=== PATIENT | female | born 1935 ===

== ENCOUNTER → 2020-03-02 09:27 | Outpatient (BNVA) | payer MEDICARE, SELFPAY | PROVIDERS: PCP Family Medicine; Visit Provider Family Medicine | DX: Z86.718 Personal history of other venous thrombosis and embolism (principal); Z51.81 Encounter for therapeutic drug level monitoring; Z79.01 Long term (current) use of anticoagulants | CPT/HCPCS: 85610; 99211 ==

== ENCOUNTER 2020-03-17 13:06 | Inpatient (IN) | payer MEDICARE, SELFPAY ==
[2020-03-17 15:45] VITALS: BP 95/56; PULSE 66; RESP 16; TEMP 36.6; O2SAT 95; BMI 29.9
[2020-03-17 18:06] VITALS: BP 118/61; PULSE 60; RESP 18; TEMP 37
[2020-03-17] MEDS: 0.9 % Sodium Chloride 1,000 ML 999 ML IVCONT ×2 (18:40→20:43)
[2020-03-17] MEDS: Famotidine/PF 20 MG/2 ML VIAL IVPUSH (18:40)
[2020-03-17] MEDS: ondansetron HCL 4 MG/2 ML VIAL IVPUSH (18:40)
[2020-03-17 18:41] LABS: Basophils Percent Auto 0.1 % (0-2); Hematocrit 35.4 % (37-47); Hemoglobin 11.7 g/dl (12.0-16.0); Imm Gran Abs Auto 0.05 X10*3/uL (0.00-0.03); Imm Gran Pct Auto 0.6 % (0.0-0.4); Lymphocytes Absolute Auto 1.6 X10*3/uL (1.2-4.9); Lymphocytes Percent Auto 18.8 % (20-40); MANUAL DIFF FLAG NO; Mean Corpuscular HGB Conc 33.1 g/dl (31.0-35.0); Mean Corpuscular Hemoglobin 28.9 pg (27.0-33.0); Mean Corpuscular Volume 87.4 fL (80-98); Mean Platelet Volume 10.9 fL (9.4-12.3); Monocytes Absolute Auto 1.1 X10*3/uL (0.1-1.2); Monocytes Percent Auto 12.5 % (2-11); NRBC Pct Auto 0.3 /100WBC (0.0-0.2); Neutrophils Absolute Auto 5.8 X10*3/uL (2.0-8.3); Platelet Count 248 X10*3/uL (160-400); Red Blood Count 4.05 X10*6/uL (4.20-5.50); Red Cell Distribution Width 15.7 % (11.0-16.0); White Blood Count 8.6 X10*3/uL (4.8-10.8)
[2020-03-17 20:00] LABS: Lipase 42 U/L (8-78)
[2020-03-17 20:01] LABS: Alanine Aminotransferase 15 U/L (0-31); Albumin Level 3.6 g/dL (3.5-5.0); Alkaline Phosphatase 88 U/L (39-117); Anion Gap 16 (12-20); Aspartate Amino Transferase 39 U/L (5-31); Bilirubin Direct 0.3 mg/dL (0.0-0.5); Bilirubin Total 0.4 mg/dL (0.0-1.0); Blood Urea Nitrogen 43 mg/dL (9-16); Carbon Dioxide 24 mmol/L (22-29); Chloride 101 mmol/L (96-108); Creatinine Clr Calc Pharmacy 14.2; Estimated Glomerular Filt Rate 14; Glucose Random 96 mg/dL (60-115); Potassium 3.9 mmol/l (3.3-5.1); Sodium 137 mmol/L (135-145)
--- NOTE | 2020-03-17 20:27 | ED_ITS ---
HPI - Abdominal Pain General Chief Complaint: Nausea/Vomiting/Diarrhea Stated Complaint: retaining fluids Time Seen by Provider: 03/17/20 18:07 Source: patient Mode of arrival: ambulatory Limitations: no limitations History of Present Illness HPI narrative: Patient been nauseated for last few days and vomited once today poor oral intake for last few days also complaining of mild epigastric pain no abdominal distension diarrhea .patient been feeling very weak for last few days no fever no cough no chills no urinary complaints patient denies any contact with any COVID patient MD elicited complaint: abdominal pain Pertinent past history: none Onset (ago): day(s) (2) Related Data Home Medications Medication Instructions Recorded Confirmed acetaminophen 1 tab PO QAM 03/17/20 03/17/20 aspirin 1 tab PO QAM 03/17/20 03/17/20 calcitriol 1 cap PO 3XW 03/17/20 03/17/20 chlorthalidone 1 tab PO QAM 03/17/20 03/17/20 cyanocobalamin (vitamin B-12) 1 tab PO QAM 03/17/20 03/17/20 diclofenac sodium 2 g TOPICAL BID PRN 03/17/20 03/17/20 diphenoxylate-atropine 1 tab PO QID PRN 03/17/20 03/17/20 furosemide 1 tab PO Q OTHER DAY 03/17/20 03/17/20 lidocaine 1 applic TOPICAL BID 03/17/20 03/17/20 lisinopril 1 tab PO QAM 03/17/20 03/17/20 omeprazole 1 cap PO QAM 03/17/20 03/17/20 warfarin 15 mg PO SUMOTUWETHFR@1600 03/17/20 03/17/20 warfarin 20 mg PO SA@1600 03/17/20 03/17/20 Previous Rx's Medication Instructions Recorded warfarin 5 mg tablet See Rx Instructions .ROUTE 03/02/20 .COMPLEX #90 tab Allergies Allergy/AdvReac Type Severity Reaction Status Date / Time No Known Allergies Allergy Verified 03/02/20 09:24 Physical Exam Vital Signs: Vital Signs: Last Vital Signs Temp 98.6 F 03/17/20 18:06 Pulse 62 03/17/20 20:44 Resp 16 03/17/20 20:44 BP 129/68 03/17/20 20:44 Pulse Ox 94 11/05/20 20:44 Body Mass Index 29.9 Course Course Course Narrative: patient COVID-19 positive although no cough or shortness of breath came with poor oral intake and nausea vomiting chest x-ray showed bilateral infiltrate patient not hypoxic white counts are normal we will give your empirically Rocephin and Zithromax patient is not septic and the pneumonia is viral etiology MDM - Abdominal Pain Lab Data Result diagrams: 03/17/20 18:33 03/17/20 19:15 Labs: Lab Results 03/17/20 03/17/20 03/17/20 Range/Units 18:33 18:33 18:33 WBC 8.6 (4.8-10.8) X10*3/uL RBC 4.05 L (4.20-5.50) X10*6/uL Hgb 11.7 L (12.0-16.0) g/dl Hct 35.4 L (37-47) % MCV 87.4 (80-98) fL MCH 28.9 (27.0-33.0) pg MCHC 33.1 (31.0-35.0) g/dl RDW 15.7 (11.0-16.0) % Plt Count 248 (160-400) X10*3/uL MPV 10.9 (9.4-12.3) fL Immature Gran % (Auto) 0.6 H (0.0-0.4) % Neut % (Auto) 68.0 (45-73) % Lymph % (Auto) 18.8 L (20-40) % Payne % (Auto) 12.5 H (2-11) % Eos % (Auto) 0.0 (0-4) % Baso % (Auto) 0.1 (0-2) % Lymph # (Auto) 1.6 (1.2-4.9) X10*3/uL Payne # (Auto) 1.1 (0.1-1.2) X10*3/uL Eos # (Auto) 0.0 (0.0-0.4) X10*3/uL Baso # (Auto) 0.0 (0.0-0.2) X10*3/uL Abs Immat Gran (auto) 0.05 H (0.00-0.03) X10*3/uL Absolute Neuts (auto) 5.8 (2.0-8.3) X10*3/uL Absolute Nucleated RBC 0.030 H (0.0-0.012) X10*3/uL Nucleated RBC % (auto) 0.3 H (0.0-0.2) /100WBC Sodium Cancelled Potassium Cancelled Chloride Cancelled Carbon Dioxide Cancelled Anion Gap Cancelled BUN Cancelled Creatinine Cancelled Estim Creat Clear Calc Cancelled Estimated GFR Cancelled Random Glucose Cancelled Calcium Cancelled Total Bilirubin Cancelled Direct Bilirubin Cancelled AST Cancelled ALT Cancelled Alkaline Phosphatase Cancelled Total Protein Cancelled Albumin Cancelled Lipase Cancelled Coronavirus (PCR) (Negative) 03/17/20 03/17/20 03/17/20 Range/Units 19:15 19:15 22:14 WBC (4.8-10.8) X10*3/uL RBC (4.20-5.50) X10*6/uL Hgb (12.0-16.0) g/dl Hct (37-47) % MCV (80-98) fL MCH (27.0-33.0) pg MCHC (31.0-35.0) g/dl RDW (11.0-16.0) % Plt Count (160-400) X10*3/uL MPV (9.4-12.3) fL Immature Gran % (Auto) (0.0-0.4) % Neut % (Auto) (45-73) % Lymph % (Auto) (20-40) % Payne % (Auto) (2-11) % Eos % (Auto) (0-4) % Baso % (Auto) (0-2) % Lymph # (Auto) (1.2-4.9) X10*3/uL Payne # (Auto) (0.1-1.2) X10*3/uL Eos # (Auto) (0.0-0.4) X10*3/uL Baso # (Auto) (0.0-0.2) X10*3/uL Abs Immat Gran (auto) (0.00-0.03) X10*3/uL Absolute Neuts (auto) (2.0-8.3) X10*3/uL Absolute Nucleated RBC (0.0-0.012) X10*3/uL Nucleated RBC % (auto) (0.0-0.2) /100WBC Sodium 137 Potassium 3.9 Chloride 101 Carbon Dioxide 24 Anion Gap 16 BUN 43 H Creatinine 3.16 H Estim Creat Clear Calc 14.2 Estimated GFR 14 Random Glucose 96 Calcium 8.0 L Total Bilirubin 0.4 Direct Bilirubin 0.3 AST 39 H ALT 15 Alkaline Phosphatase 88 Total Protein 8.0 Albumin 3.6 Lipase 42 Coronavirus (PCR) POSITIVE A (Negative) Discharge Plan Discharge Clinical Impression: COVID-19 virus infection Renal failure (ARF), acute on chronic Qualifiers: Acute renal failure type: unspecified Chronic kidney disease stage: stage 4 (severe) Qualified Code(s): N17.9 - Acute kidney failure, unspecified Patient Disposition: Admitted As Inpatient COUNTS INCLUDE 234 BEDS AT THE [facility] Past Medical History Medical History (Updated 03/17/20 @ 23:57 by Freeman Abbott MD) Acid reflux Social History Social History Alcohol intake: never Smoking Status: Never smoker Use of substances other than those prescribed or required for medical reasons: No Advance Directives: No Advance Directives Information Provided: No
[2020-03-17 20:44] VITALS: BP 129/68; PULSE 62; RESP 16; O2SAT 94
--- NOTE | 2020-03-17 23:04 | PC.NURSE ---
hospitalist called by this rn, stating that he did not know pt was to be admitted, dr dorantes made aware and speaking with hospitalist. pt continues to rest. awaiting admission orders
[2020-03-17 23:37] LABS: SARS COV2 PCR INHOUSE POSITIVE (Negative)
--- NOTE | 2020-03-17 23:56 | XR_ITS ---
EXAMINATION: XR CHEST CLINICAL INFORMATION: Covid infection COMPARISON: 07/20/2011 TECHNIQUE: Frontal view of the chest was obtained. FINDINGS: Again noted is mild cardiomegaly. Multifocal infiltrates are present in both lungs, right greater than left. Findings are certainly consistent with Covid pneumonia. The aorta is calcified and unfolded. No pleural effusions are seen. Marked degenerative changes present in the spine and both shoulders. XR/XR chest 1V IMPRESSION: Multifocal infiltrates in both lungs, right greater than left.
[2020-03-18] VITALS (7 sets, daily range): BP systolic 142–174; BP diastolic 65–81; PULSE 63–70; RESP 18–20; TEMP 36.6–38.7; O2SAT 91–95; BMI 33.5
--- NOTE | 2020-03-18 01:13 | P.HPIM_ITS ---
History of Present Illness Date of Service: 03/18/20 Chief Complaint: nausea, vomiting 84 y/o female who presented from home c/o nasuea and vomiting x for the past week. Patient reports that started feeling malaise since saturday and now is presenting with poor appetite and has not been drinking plenty of fluids at home. On presentation to the ED patient was found to be hemodynamically stable, no leukocytosis, hgb of 11.7, electrolytes WNL, creatinine of 3.1(with baseline of 1.4), covid positive, CXR showing bilateral patchy opacities. Patient placed on isolation and decision for admission given. Patient seen and evaluated at the bedside, laying down in bed in no acute distress. ROS as above otherwise negative. Physical exam unremarkable. Denies any chest pain, SOB, diarrhea, constipation or fever. No sick contacts or any recent travel. 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, anemia, DVT, aortic regurgitation, H pylori gastritis, PAD PSx: cholecystectomy in 2002, cataract surgery, bilateral tubal ligation Toxic habits: No hx of alcohol abuse, smoking or iVDA Review of Systems Constitutional: Constitutional: Reports malaise Gastrointestinal: Gastrointestinal: Reports nausea and Reports vomiting PMFSH Medical History Acid reflux Functional capacity: independent ambulation Family history: reviewed and not pertinent Social History Alcohol intake: never Smoking Status: Never smoker Use of substances other than those prescribed or required for medical reasons: No Advance Directives: No Advance Directives Information Provided: No Meds Allergies Allergy/AdvReac Type Severity Reaction Status Date / Time No Known Allergies Allergy Verified 03/02/20 09:24 Home Medications Medication Instructions Recorded Confirmed Type acetaminophen 1 tab PO QAM 03/17/20 03/17/20 History aspirin 1 tab PO QAM 03/17/20 03/17/20 History calcitriol 1 cap PO 3XW 03/17/20 03/17/20 History chlorthalidone 1 tab PO QAM 03/17/20 03/17/20 History cyanocobalamin (vitamin B-12) 1 tab PO QAM 03/17/20 03/17/20 History diclofenac sodium 2 g TOPICAL BID PRN 03/17/20 03/17/20 History diphenoxylate-atropine 1 tab PO QID PRN 03/17/20 03/17/20 History furosemide 1 tab PO Q OTHER DAY 03/17/20 03/17/20 History lidocaine 1 applic TOPICAL BID 03/17/20 03/17/20 History lisinopril 1 tab PO QAM 03/17/20 03/17/20 History omeprazole 1 cap PO QAM 03/17/20 03/17/20 History warfarin 15 mg PO SUMOTUWETHFR@1600 03/17/20 03/17/20 History warfarin 20 mg PO SA@1600 03/17/20 03/17/20 History Physical Exam Vital Signs and Narrative: Vital Signs: Last Vital Signs Temp 98.6 F 03/17/20 18:06 Pulse 62 03/17/20 20:44 Resp 16 03/17/20 20:44 BP 129/68 03/17/20 20:44 Pulse Ox 94 03/17/20 20:44 Body Mass Index 29.9 Const: General: cooperative, comfortable and no acute distress Orientation/consciousness: oriented to person, oriented to place and oriented to time HENMT: Head: Yes normal to inspection Eyes: General: appearance normal, both eyes and all related structures Neck: Yes normal visual inspection Chest: Chest palpation & inspection: normal inspection of the chest Resp: Effort & Inspection: normal respiratory effort Cardio: Jugular venous distension: no JVD Rate: regular rate Rhythm: regular rhythm Heart sounds: S1 normal heart sound present and S2 normal heart sound present GI: Inspection: Yes normal to inspection Skin: General skin exam: no rashes or lesions noted Neuro: General: oriented to person, oriented to place and oriented to time Motor exam (neuro): 5/5 motor strength present throughout Results Labs Labs: Laboratory Tests 03/17/20 03/17/20 03/17/20 18:33 18:33 18:33 WBC 8.6 RBC 4.05 L Hgb 11.7 L Hct 35.4 L MCV 87.4 MCH 28.9 MCHC 33.1 RDW 15.7 Plt Count 248 MPV 10.9 Immature Gran % (Auto) 0.6 H Neut % (Auto) 68.0 Lymph % (Auto) 18.8 L [place] % (Auto) 12.5 H Eos % (Auto) 0.0 Baso % (Auto) 0.1 Lymph # (Auto) 1.6 S[place] # (Auto) 1.1 Eos # (Auto) 0.0 Baso # (Auto) 0.0 Abs Immat Gran (auto) 0.05 H Absolute Neuts (auto) 5.8 Absolute Nucleated RBC 0.030 H Nucleated RBC % (auto) 0.3 H Sodium Cancelled Potassium Cancelled Chloride Cancelled Carbon Dioxide Cancelled Anion Gap Cancelled BUN Cancelled Creatinine Cancelled Estim Creat Clear Calc Cancelled Estimated GFR Cancelled Random Glucose Cancelled Calcium Cancelled Total Bilirubin Cancelled Direct Bilirubin Cancelled AST Cancelled ALT Cancelled Alkaline Phosphatase Cancelled Total Protein Cancelled Albumin Cancelled Lipase Cancelled Coronavirus (PCR) 03/17/20 03/17/20 03/17/20 19:15 19:15 22:14 WBC RBC Hgb Hct MCV MCH MCHC RDW Plt Count MPV Immature Gran % (Auto) Neut % (Auto) Lymph % (Auto) Sully % (Auto) Eos % (Auto) Baso % (Auto) Lymph # (Auto) Sully # (Auto) Eos # (Auto) Baso # (Auto) Abs Immat Gran (auto) Absolute Neuts (auto) Absolute Nucleated RBC Nucleated RBC % (auto) Sodium 137 Potassium 3.9 Chloride 101 Carbon Dioxide 24 Anion Gap 16 BUN 43 H Creatinine 3.16 H Estim Creat Clear Calc 14.2 Estimated GFR 14 Random Glucose 96 Calcium 8.0 L Total Bilirubin 0.4 Direct Bilirubin 0.3 AST 39 H ALT 15 Alkaline Phosphatase 88 Total Protein 8.0 Albumin 3.6 Lipase 42 Coronavirus (PCR) POSITIVE A Imaging Radiologist's Impressions: Impressions Chest X-Ray 03/17/20 23:56 IMPRESSION: Multifocal infiltrates in both lungs, right greater than left. Assessment and Plan (1) COVID-19 virus infection: Status: Acute Placed on Isolation Does not requires any oxygen supplementation at present. Patient saturating well on room air (2) Renal failure (ARF), acute on chronic: Qualifiers: Acute renal failure type: unspecified Chronic kidney disease stage: stage 4 (severe) Qualified Code(s): N17.9 - Acute kidney failure, unspecified; N18.4 - Chronic kidney disease, stage 4 (severe) Status: Acute creatinine of 3.1 with baseline of 1.4 Continue with IV hydration monitor renal function closely and electrolytes nephrology consult in the am (3) DVT (deep venous thrombosis): Status: Acute continue with coumadin home dose monitor INR daily (4) Hypertension: Status: Acute Hold lisinopril given XANDER Continue with lasix home dose continue with chlorthalidone home dose continue with aspirin home dose (5) Acid reflux: Status: Acute continue with PPI home dose
[2020-03-18] MEDS: Aspirin Enteric Coated 81 MG TABLET.DR PO ×2 (01:54→08:45)
[2020-03-18] MEDS: cefTRIAXone sodium 1 GM in 0.9 % Sodium Chloride 50 ML IV (01:54)
[2020-03-18 01:57] LABS: Lactic Acid 0.8 mmol/L (0.5-2.0)
[2020-03-18] MEDS: 0.9 % Sodium Chloride 1,000 ML 100 ML IVCONT ×2 (03:02→14:06)
[2020-03-18] MEDS: Azithromycin 500 MG in 0.9 % Sodium Chloride 250 ML 125 MG IV (03:02)
[2020-03-18 03:12] LABS: INTERNATIONAL NORM RATIO 3.4 (0.9-1.1); Prothrombin Time 41.1 SEC (10.8-13.0)
[2020-03-18 03:14] LABS: Partial Thromboplastin Time 38.8 SEC (24.1-38.0)
[2020-03-18 04:05] LABS: Appearance Urine CLEAR; Color Urine YELLOW; Glucose Urine UA NEG (NEG); Leukocyte Esterase Urine 3+ (NEG); Nitrite Urine NEG (NEG); Urine Blood TRACE (NEG); Urine Ketones NEG (NEG); Urine Protein NEG (NEG-TRACE)
[2020-03-18] MEDS: Flu Vacc QS2020-21(6mos up)/PF 0.5 ML SYRINGE IM (04:59)
[2020-03-18] MEDS: Omeprazole 20 MG CAPSULE.DR PO (05:01)
[2020-03-18 05:22] LABS: Bacteria Urine TRACE /LPF; RBC Urine 0-2 /HPF (0); Squamous Epithelial Cell Urine 2+ /LPF
[2020-03-18 06:12] LABS: MANUAL DIFF FLAG NO
[2020-03-18 06:52] LABS: Anion Gap 15 (12-20); Blood Urea Nitrogen 38 mg/dL (9-16); Calcium 7.4 mg/dL (8.4-10.2); Carbon Dioxide 21 mmol/L (22-29); Chloride 107 mmol/L (96-108); Creatinine Clr Calc Pharmacy 20.2; Estimated Glomerular Filt Rate 20; Glucose Random 81 mg/dL (60-115); Potassium 3.8 mmol/l (3.3-5.1); Sodium 139 mmol/L (135-145)
[2020-03-18 06:54] LABS: Hematocrit 32.5 % (37-47); Hemoglobin 10.3 g/dl (12.0-16.0); Imm Gran Abs Auto 0.06 X10*3/uL (0.00-0.03); Imm Gran Pct Auto 0.8 % (0.0-0.4); Lymphocytes Absolute Auto 1.7 X10*3/uL (1.2-4.9); Lymphocytes Percent Auto 21.3 % (20-40); Mean Corpuscular HGB Conc 31.7 g/dl (31.0-35.0); Mean Corpuscular Hemoglobin 28.1 pg (27.0-33.0); Mean Corpuscular Volume 88.8 fL (80-98); Monocytes Absolute Auto 1.1 X10*3/uL (0.1-1.2); Monocytes Percent Auto 14.3 % (2-11); NRBC Pct Auto 0.3 /100WBC (0.0-0.2); Neutrophils Percent Auto 63.6 % (45-73); Platelet Count 231 X10*3/uL (160-400); Red Blood Count 3.66 X10*6/uL (4.20-5.50); Red Cell Distribution Width 15.8 % (11.0-16.0); White Blood Count 7.8 X10*3/uL (4.8-10.8)
[2020-03-18] MEDS: Furosemide 20 MG TABLET PO (08:45)
[2020-03-18] MEDS: 0.9 % Sodium Chloride Flush 3 ML SYRINGE IVFLUSH (08:45)
[2020-03-18] MEDS: hydroCHLOROthiazide 25 MG TABLET PO (08:45)
--- NOTE | 2020-03-18 10:07 | MHC.CM.PN ---
IMM 03/18/20 Female 84 lives with family. She requires assist and an ad for all functional mobility. DP home resume [facility] services including [employer]. Family will transport. CM will follow for change in dc service needs.
--- NOTE | 2020-03-18 11:14 | P.CONNP_ITS ---
History of Present Illness Reason for Consult Consult date: 03/18/20 Reason for consult: XANDER Chief Complaint Chief complaint: Nausea/Vomiting History of Present Illness Narrative: 84 y/o adm with GI symprtoms and XANDER from ques dehydration. Labs also noted COVID pos and xray c/w COVID lung injury. Overall doing ok this am and on RA breathing comfortably. No CP. No N/V. PMH signif for: HTN, DJD of the left knee s/p arthroplasty, anemia, DVT, aortic regurgitation, H pylori gastritis, PAD; CKD 3 bsl SCr 1.5 PMFSH Past Medical History Medical History (Updated 03/18/20 @ 04:21 by Irene Lee, RN) Acid reflux Anemia Aortic regurgitation DVT (deep venous thrombosis) Helicobacter pylori gastritis Hypertension PAD (peripheral artery disease) Functional capacity: independent ambulation Family History Family history: reviewed and not pertinent Surgical History Surgical History (Updated 03/18/20 @ 04:21 by Irene Lee, RN) History of bilateral knee replacement Social History Social History Household Members: None Housing: House Do you presently have visiting nurse or other home services: Yes ([employer]) Alcohol intake: never Smoking Status: Never smoker Use of substances other than those prescribed or required for medical reasons: No Currently Displaying Signs/Symptoms of Drug Intoxication Withdrawal: No Advance Directives: No Advance Directives Information Provided: No Do you have thoughts of harming others: None Do you have a plan to hurt others: No Plan Recently lost weight without trying: No service: No Current occupational status: disabled Meds Allergies Allergy/AdvReac Type Severity Reaction Status Date / Time No Known Allergies Allergy Verified 03/02/20 09:24 Home Medications Medication Instructions Recorded Confirmed Type acetaminophen 1 tab PO QAM 03/17/20 03/17/20 History aspirin 1 tab PO QAM 03/17/20 03/17/20 History calcitriol 1 cap PO 3XW 03/17/20 03/17/20 History chlorthalidone 1 tab PO QAM 03/17/20 03/17/20 History cyanocobalamin (vitamin B-12) 1 tab PO QAM 03/17/20 03/17/20 History diclofenac sodium 2 g TOPICAL BID PRN 03/17/20 03/17/20 History diphenoxylate-atropine 1 tab PO QID PRN 03/17/20 03/17/20 History furosemide 1 tab PO Q OTHER DAY 03/17/20 03/17/20 History lidocaine 1 applic TOPICAL BID 03/17/20 03/17/20 History lisinopril 1 tab PO QAM 03/17/20 03/17/20 History omeprazole 1 cap PO QAM 03/17/20 03/17/20 History warfarin 15 mg PO SUMOTUWETHFR@1600 03/17/20 03/17/20 History warfarin 20 mg PO SA@1600 03/17/20 03/17/20 History Physical Exam Vital Signs: Last Vital Signs Temp 98.5 F 03/18/20 08:04 Pulse 63 03/18/20 08:04 Resp 18 03/18/20 08:04 BP 142/65 H 03/18/20 08:04 Pulse Ox 91 L 03/18/20 08:04 Body Mass Index 33.5 Const General: cooperative, comfortable and no acute distress Orientation/consciousness: oriented to person, oriented to place and oriented to time HENMT Head: Yes normal to inspection Eyes General: appearance normal, both eyes and all related structures Neck Neck: Yes normal visual inspection Chest Chest palpation & inspection: normal inspection of the chest Resp Effort & Inspection: normal respiratory effort Cardio Jugular venous distension: no JVD Rate: regular rate Rhythm: regular rhythm Heart sounds: S1 normal heart sound present and S2 normal heart sound present GI Inspection: Yes normal to inspection Skin General skin exam: no rashes or lesions noted Neuro General: oriented to person, oriented to place and oriented to time Motor exam (neuro): 5/5 motor strength present throughout Results Lab Results Result Diagrams: 03/18/20 05:35 03/18/20 05:35 Lab results: Chemistry 03/17/20 03/17/20 03/18/20 18:33 19:15 05:35 Sodium Cancelled 137 139 Potassium Cancelled 3.9 3.8 Carbon Dioxide Cancelled 24 21 L BUN Cancelled 43 H 38 H Creatinine Cancelled 3.16 H 2.35 H Calcium Cancelled 8.0 L 7.4 L D Hematology 03/17/20 03/18/20 18:33 05:35 WBC 8.6 7.8 Hgb 11.7 L 10.3 L Plt Count 248 231 Urinalysis 03/18/20 03:42 Urine Color YELLOW Urine Appearance CLEAR Urine pH 5.0 Ur Specific [place] 1.020 Urine Protein NEG Urine Glucose (UA) NEG Urine Ketones NEG Urine Blood TRACE Urine Nitrite NEG Ur Leukocyte Esterase 3+ H Urine RBC 0-2 Urine WBC 76-150 H Ur Squamous Epith Cells 2+ Laboratory Tests 06/26/19 03/17/20 03/18/20 10:50 19:15 05:35 Creatinine 1.49 H 3.16 H 2.35 H Assessment and Plan (1) COVID-19 virus infection: Status: Acute (2) Renal failure (ARF), acute on chronic: Qualifiers: Acute renal failure type: unspecified Chronic kidney disease stage: stage 4 (severe) Qualified Code(s): N17.9 - Acute kidney failure, unspecified; N18.4 - Chronic kidney disease, stage 4 (severe) Status: Acute (3) DVT (deep venous thrombosis): Status: Acute (4) Hypertension: Status: Acute (5) Acid reflux: Status: Acute Placed on Isolation Does not requires any oxygen supplementation at present. Patient saturating well on room air creatinine of 3.1 with baseline of 1.4 Continue with IV hydration monitor renal function closely and electrolytes nephrology consult in the am continue with coumadin home dose monitor INR daily Hold lisinopril given XANDER Continue with lasix home dose continue with chlorthalidone home dose continue with aspirin home dose 1. Non-Oliguric XANDER: decr SCr off evie/diuretic and gentle IVF c/w pre- renal/dehydration playing a role despite the lack of high BUN/Cr ratio; at risk for WRF from COVID assoc cytokine ATN: UA abn with wbc raises ques of UTI vs AIN 2. CKD 3: bsl SCr 1.5; c/w HTN reanl dis 3. COVID with abnl CXR c/w COVID liung injury REC: cont to hold EVIE/diuretic; likely will need to start dexamethasone and ok to use remdesivir if needed; cont IVF cautiously while track Oxygenation; avoid NToxins; check urine studies ( I will order) Will follow with med team
--- NOTE | 2020-03-18 11:25 | HO.PM.IMPN ---
Subjective Subjective Date of Service: 03/18/20 Interval History: Seen in follow up for XANDER and covid. Patient feels well, oxygen level is better Review of Systems Gen: no fever Resp: no sob, no cough CV: no chest, no LOWE, no leg edema GI: No n/v, no abd pain Neuro: No confusion Physical Exam Vital Signs: Vital Signs: Last Vital Signs Temp 98.5 F 03/18/20 08:04 Pulse 63 03/18/20 08:04 Resp 18 03/18/20 08:04 BP 142/65 H 03/18/20 08:04 Pulse Ox 91 L 03/18/20 08:04 Body Mass Index 33.5 General: AO X 3, no acute distress Resp: CTA bilateral CVS: S1,S2,RRR GI: +BS, NT, no distention Skin: No rash Neuro: motor grossly intact Psych: appropriate affect Objective Data Current Medications Generic Name Dose Route Start Last Admin Trade Name Freq PRN Reason Stop Dose Admin Aspirin 81 mg 03/18/20 01:15 03/18/20 08:45 Aspirin Enteric Coated 81 Mg Tablet. PO 81 mg DAILY [facility] Administration Furosemide 20 mg 03/18/20 08:00 03/18/20 08:45 Furosemide 20 Mg Tablet PO 20 mg Q48H [facility] Administration Protocol Hydrochlorothiazide 25 mg 03/18/20 09:00 03/18/20 08:45 Hydrochlorothiazide 25 Mg Tablet PO 25 mg DAILY [facility] Administration Sodium Chloride 1,000 mls @ 100 mls/hr 03/18/20 01:42 03/18/20 03:02 Ns IVCONT 100 mls/hr .Q10H [facility] Administration Lisinopril 40 mg 03/18/20 09:00 Lisinopril 40 Mg Tablet PO DAILY [facility] Protocol Omeprazole 20 mg 03/18/20 06:30 03/18/20 05:01 Omeprazole 20 Mg Capsule. PO 20 mg DAILY@0630 [facility] Administration Sodium Chloride 3 ml 03/18/20 08:00 03/18/20 08:45 0.9 % Sodium Chloride Flush 3 Ml Syringe IVFLUSH 3 ml QSHIFT [facility] Administration Warfarin Sodium 20 mg 03/19/20 16:00 Warfarin Sodium 10 Mg Tablet PO SA@1600 [facility] Warfarin Sodium 15 mg 03/18/20 16:00 Warfarin Sodium 7.5 Mg Tablet PO SUMOTUWETHFR@1600 [facility] Labs CBC & Chem 7: 03/18/20 05:35 03/18/20 05:35 Assessment and Plan (1) Renal failure (ARF), acute on chronic: Status: Acute (2) DVT (deep venous thrombosis): Status: Acute (3) COVID-19 virus infection: Status: Acute (4) Hypertension: Status: Acute Assessment and Plan: 84/F with CKD3, HTN, h/o DVT presented with N/V and found to have XANDER and positive 1. XANDER on CKD--improving. continue IVF and follow labs Nephrology following 2. N/V--liekly related to covid, and resolved. Hydrate and advance diet as tamanna 3. h/o DVT--continue coumadin but hold today due to high INR today 4. Covid 19, doing ok, O2 sat is 91 on Room air. Will add Dexamethasone 6 daily HTN--hold Lisinopril and diuretics
[2020-03-18 11:30] LABS: INTERNATIONAL NORM RATIO 3.4 (0.9-1.1); Prothrombin Time 41.4 SEC (10.8-13.0)
[2020-03-18 13:35] LABS: Creatinine Urine 19.01 mg/dL; Total Protein Urine Random 9 mg/dL (<12)
[2020-03-18 14:32] LABS: EOS Counted 0 CELLS; EOS QC POS YES; EOS Stain Quality OK YES; WBC, Counted 100 CELLS
[2020-03-18] MEDS: Acetaminophen 325 MG TABLET 650 MG PO (20:28)
[2020-03-19] VITALS: BP 157/70; PULSE 70; RESP 18; TEMP 36.8; O2SAT 93
[2020-03-19] MEDS: 0.9 % Sodium Chloride Flush 3 ML SYRINGE IVFLUSH ×4 (00:22→23:16)
[2020-03-19] MEDS: 0.9 % Sodium Chloride 1,000 ML 100 ML IVCONT ×4 (03:08→23:11)
[2020-03-19 04:00] VITALS: BP 139/59; PULSE 75; RESP 18; TEMP 36.3; O2SAT 94
[2020-03-19] MEDS: Omeprazole 20 MG CAPSULE.DR PO (06:24)
--- NOTE | 2020-03-19 06:42 | PC.NURSE ---
Pt noted to have fever of 101.7 last noc at 715p. BP initially elevated at 174/81 but repeat manually was 158/72. Per Dr Guillaume, order for Tylenol given. Tylenol lowered fever to 99.3 oral at 2200. Will continue to monitor and safety measures in place.
[2020-03-19 07:07] VITALS: BP 146/63; PULSE 66; RESP 20; TEMP 36.1; O2SAT 94
[2020-03-19 07:27] LABS: INTERNATIONAL NORM RATIO 3.3 (0.9-1.1)
[2020-03-19] MEDS: Aspirin Enteric Coated 81 MG TABLET.DR PO (08:24)
[2020-03-19] MEDS: hydroCHLOROthiazide 25 MG TABLET PO (08:24)
[2020-03-19 11:11] VITALS: BP 160/90; PULSE 120; RESP 18; TEMP 36.6; O2SAT 90
--- NOTE | 2020-03-19 11:55 | HO.PM.IMPN ---
Subjective Subjective Date of Service: 03/19/20 Interval History: Seen in follow up for XANDER and covid. Patient feels well, oxygen level is better Review of Systems no fever no sob Physical Exam Vital Signs: Vital Signs: Last Vital Signs Temp 98 F 03/19/20 11:11 Pulse 120 H 03/19/20 11:11 Resp 18 03/19/20 11:11 BP 160/90 H 03/19/20 11:11 Pulse Ox 90 L 03/19/20 11:11 Body Mass Index 33.5 General: AO X 3, no acute distress Resp: CTA bilateral CVS: S1,S2,RRR GI: +BS, NT, no distention Skin: No rash Neuro: motor grossly intact Psych: appropriate affect Objective Data Current Medications Generic Name Dose Route Start Last Admin Trade Name Chetanq PRN Reason Stop Dose Admin Aspirin 81 mg 03/18/20 01:15 03/19/20 08:24 Aspirin Enteric Coated 81 Mg Tablet. PO 81 mg DAILY [facility] Administration Furosemide 20 mg 03/18/20 08:00 03/18/20 08:45 Furosemide 20 Mg Tablet PO 20 mg Q48H [facility] Administration Protocol Hydrochlorothiazide 25 mg 03/18/20 09:00 03/19/20 08:24 Hydrochlorothiazide 25 Mg Tablet PO 25 mg DAILY [facility] Administration Sodium Chloride 1,000 mls @ 100 mls/hr 03/18/20 01:42 03/19/20 08:25 Ns IVCONT 100 mls/hr .Q10H [facility] Administration Lisinopril 40 mg 03/18/20 09:00 Lisinopril 40 Mg Tablet PO DAILY [facility]S [facility]CLUDE 234 BEDS AT THE [facility] Protocol Omeprazole 20 mg 03/18/20 06:30 03/19/20 06:24 Omeprazole 20 Mg Capsule. PO 20 mg DAILY@0630 [facility]S INCLUDE 234 BEDS AT THE [facility] Administration Sodium Chloride 3 ml 03/18/20 08:00 03/19/20 08:25 0.9 % Sodium Chloride Flush 3 Ml Syringe IVFLUSH 3 ml QSHIFT COUNTS INCLUDE 234 BEDS AT THE [facility] Administration Warfarin Sodium 20 mg 03/19/20 16:00 Warfarin Sodium 10 Mg Tablet PO SA@1600 COUNTS INCLUDE 234 BEDS AT THE [facility] Warfarin Sodium 15 mg 03/18/20 16:00 Warfarin Sodium 7.5 Mg Tablet PO SUMOTUWETHFR@1600 COUNTS INCLUDE 234 BEDS AT THE [facility] Labs CBC & Chem 7: 03/20/20 06:36 03/20/20 06:36 Microbiology Microbiology Results: Microbiology 03/18/20 01:24 Blood - Venous Blood Culture - Preliminary No growth after 24 hours. 03/18/20 01:26 Blood - Venous Blood Culture - Preliminary No growth after 24 hours. Assessment and Plan (1) Renal failure (ARF), acute on chronic: Status: Acute (2) DVT (deep venous thrombosis): Status: Acute (3) COVID-19 virus infection: Status: Acute (4) Hypertension: Status: Acute Assessment and Plan: 84/F with CKD3, HTN, h/o DVT presented with N/V and found to have XANDER and positive 1. XANDER on CKD--improving. continue IVF and follow labs Nephrology following 2. N/V--liekly related to covid, and resolved. Hydrate and advance diet as tamanna 3. h/o DVT--continue coumadin, resume coumadin 4. Covid 19, doing ok, O2 sat is 91 on Room air. continue Dexamethasone 6 daily HTN--hold Lisinopril and diuretics
[2020-03-19 15:23] VITALS: BP 156/74; PULSE 73; RESP 18; TEMP 38; O2SAT 92
[2020-03-19] MEDS: Acetaminophen 325 MG TABLET 650 MG PO (17:34)
[2020-03-19 19:14] VITALS: BP 159/76; PULSE 78; RESP 18; TEMP 36.2; O2SAT 91
--- NOTE | 2020-03-19 20:33 | P.PNNP_ITS ---
Subjective Subjective Interval history: Seen and examined. Events noted Physical Exam Vital Signs: Vital Signs: Last Vital Signs Temp 97.2 F 03/19/20 19:14 Pulse 78 03/19/20 19:14 Resp 18 03/19/20 19:14 BP 159/76 H 03/19/20 19:14 Pulse Ox 91 L 03/19/20 19:14 Body Mass Index 33.5 Const: General: cooperative, comfortable and no acute distress Orientation/consciousness: oriented to person, oriented to place and oriented to time HENMT: Head: Yes normal to inspection Eyes: General: appearance normal, both eyes and all related structures Neck: Neck: Yes normal visual inspection Chest: Chest palpation & inspection: normal inspection of the chest Resp: Effort & Inspection: normal respiratory effort Cardio: Jugular venous distension: no JVD Rate: regular rate Rhythm: regular rhythm Heart sounds: S1 normal heart sound present and S2 normal heart sound present GI: Inspection: Yes normal to inspection Skin: General skin exam: no rashes or lesions noted Neuro: General: oriented to person, oriented to place and oriented to time Motor exam (neuro): 5/5 motor strength present throughout Assessment & Plan Assessment and plan (1) COVID-19 virus infection: Status: Acute (2) Renal failure (ARF), acute on chronic: Status: Acute (3) DVT (deep venous thrombosis): Status: Acute (4) Hypertension: Status: Acute (5) Acid reflux: Status: Acute Assessment and Plan: 1. Non-Oliguric XANDER: decr SCr off evie/diuretic and gentle IVF c/w pre- renal/dehydration playing a role despite the lack of high BUN/Cr ratio; at risk for WRF from COVID assoc cytokine ATN: UA abn with wbc raises ques of UTI vs AIN FENa >1% c/w ATN 2. CKD 3: bsl SCr 1.5; c/w HTN reanl dis 3. COVID with abnl CXR c/w COVID liung injury REC: repeat renal labs in am; cont to hold EVIE/diuretic; cont IVF cautiously while track Oxygenation; avoid NToxins Will follow with med team Time Spent With Patient Time: Total time spent is greater than 50% in coordination of care (as documented) at patient's floor/unit and/or counseling patient:
[2020-03-20] VITALS (7 sets, daily range): BP systolic 121–180; BP diastolic 70–81; PULSE 64–91; RESP 18–20; TEMP 36.5–37.8; O2SAT 92–95
[2020-03-20] MEDS: Omeprazole 20 MG CAPSULE.DR PO (06:08)
[2020-03-20 07:29] LABS: Hematocrit 35.2 % (37-47); Hemoglobin 11.5 g/dl (12.0-16.0); Mean Corpuscular HGB Conc 32.7 g/dl (31.0-35.0); Mean Corpuscular Hemoglobin 28.3 pg (27.0-33.0); Mean Corpuscular Volume 86.7 fL (80-98); Mean Platelet Volume 12.3 fL (9.4-12.3); NRBC Pct Auto 0.3 /100WBC (0.0-0.2); Platelet Count 314 X10*3/uL (160-400); Red Blood Count 4.06 X10*6/uL (4.20-5.50); Red Cell Distribution Width 15.4 % (11.0-16.0); White Blood Count 10.6 X10*3/uL (4.8-10.8)
[2020-03-20] MEDS: Furosemide 20 MG TABLET PO (07:58)
[2020-03-20] MEDS: 0.9 % Sodium Chloride Flush 3 ML SYRINGE IVFLUSH ×2 (07:58→14:01)
[2020-03-20] MEDS: hydroCHLOROthiazide 25 MG TABLET PO (07:58)
[2020-03-20] MEDS: Aspirin Enteric Coated 81 MG TABLET.DR PO (07:58)
[2020-03-20] MEDS: Acetaminophen 325 MG TABLET 650 MG PO (07:58)
[2020-03-20 07:59] LABS: Anion Gap 14 (12-20); Blood Urea Nitrogen 16 mg/dL (9-16); Carbon Dioxide 25 mmol/L (22-29); Chloride 102 mmol/L (96-108); Creatinine Clr Calc Pharmacy 32.8; Estimated Glomerular Filt Rate 34; Glucose Random 87 mg/dL (60-115); Potassium 3.5 mmol/l (3.3-5.1); Sodium 137 mmol/L (135-145)
[2020-03-20 12:26] LABS: INTERNATIONAL NORM RATIO 3.8 (0.9-1.1); Prothrombin Time 45.4 SEC (10.8-13.0)
--- NOTE | 2020-03-20 13:59 | HO.PM.IMPN ---
Subjective Subjective Interval History: Seen in follow up for XANDER and covid. She feels better, she feels better ROS: no sob, no fever Physical Exam Vital Signs: Vital Signs: Last Vital Signs Temp 97.7 F 03/20/20 11:55 Pulse 84 03/20/20 11:55 Resp 20 03/20/20 11:55 BP 121/70 03/20/20 11:55 Pulse Ox 95 03/20/20 11:55 Body Mass Index 33.5 General: AO X 3, no acute distress Resp: CTA bilateral CVS: S1,S2,RRR GI: +BS, NT, no distention Skin: No rash Neuro: motor grossly intact Psych: appropriate affect Objective Data Current Medications Generic Name Dose Route Start Last Admin Trade Name Freq PRN Reason Stop Dose Admin Acetaminophen 650 mg 03/19/20 15:47 03/20/20 07:58 Acetaminophen 325 Mg Tablet PO 650 mg Q6H PRN Administration Pain, Mild (Pain Scale 1-3) Aspirin 81 mg 03/18/20 01:15 03/20/20 07:58 Aspirin Enteric Coated 81 Mg Tablet. PO 81 mg DAILY [facility] Administration Furosemide 20 mg 03/18/20 08:00 03/20/20 07:58 Furosemide 20 Mg Tablet PO 20 mg Q48H [facility] Administration Protocol Hydrochlorothiazide 25 mg 03/18/20 09:00 03/20/20 07:58 Hydrochlorothiazide 25 Mg Tablet PO 25 mg DAILY [facility] Administration Sodium Chloride 1,000 mls @ 100 mls/hr 03/18/20 01:42 03/20/20 09:24 Ns IVCONT Infused .Q10H [facility] Infusion Lisinopril 40 mg 03/18/20 09:00 Lisinopril 40 Mg Tablet PO DAILY [facility] Protocol Omeprazole 20 mg 03/18/20 06:30 03/20/20 06:08 Omeprazole 20 Mg Capsule. PO 20 mg DAILY@0630 [facility] Administration Sodium Chloride 3 ml 03/18/20 08:00 03/20/20 07:58 0.9 % Sodium Chloride Flush 3 Ml Syringe IVFLUSH 3 ml QSHIFT [facility] Administration Warfarin Sodium 20 mg 03/19/20 16:00 Warfarin Sodium 10 Mg Tablet PO SA@1600 [facility] Warfarin Sodium 15 mg 03/18/20 16:00 Warfarin Sodium 7.5 Mg Tablet PO SUMOTUWETHFR@1600 [facility] Labs CBC & Chem 7: 03/21/20 05:43 03/22/20 09:42 Microbiology Microbiology Results: Microbiology 03/18/20 01:24 Blood - Venous Blood Culture - Preliminary No growth after 48 hours. 03/18/20 01:26 Blood - Venous Blood Culture - Preliminary No growth after 48 hours. 03/18/20 03:38 Urine clean catch - Clean Catch Midstream Urine Culture - Final Assessment and Plan (1) Renal failure (ARF), acute on chronic: Problem details: CKD3 Status: Acute (2) DVT (deep venous thrombosis): (3) COVID-19 virus infection: Status: Acute (4) Hypertension: Assessment and Plan: 84/F with CKD3, HTN, h/o DVT presented with N/V and found to have XANDER and positive 1. XANDER on CKD--improving. continue IVF and follow labs Nephrology following 2. N/V--liekly related to covid, and resolved. Hydrate and advance diet as tamanna 3. h/o DVT--continue coumadin, resume coumadin 4. Covid 19, doing ok, O2 sat is 91 on Room air. continue Dexamethasone 6 daily HTN--hold Lisinopril and diuretics
[2020-03-20] MEDS: 0.9 % Sodium Chloride 1,000 ML 100 ML IVCONT (14:00)
--- NOTE | 2020-03-20 17:45 | PM.PNNEP ---
Subjective Subjective Interval history: Seen and examined. Events noted Physical Exam Vital Signs: Vital Signs: Last Vital Signs Temp 98.7 F 03/20/20 15:20 Pulse 76 03/20/20 15:20 Resp 18 03/20/20 15:20 BP 134/77 03/20/20 15:20 Pulse Ox 92 03/20/20 15:20 Body Mass Index 33.5 Const: General: cooperative, comfortable and no acute distress Orientation/consciousness: oriented to person, oriented to place and oriented to time HENMT: Head: Yes normal to inspection Eyes: General: appearance normal, both eyes and all related structures Neck: Neck: Yes normal visual inspection Chest: Chest palpation & inspection: normal inspection of the chest Resp: Effort & Inspection: normal respiratory effort Cardio: Jugular venous distension: no JVD Rate: regular rate Rhythm: regular rhythm Heart sounds: S1 normal heart sound present and S2 normal heart sound present GI: Inspection: Yes normal to inspection Skin: General skin exam: no rashes or lesions noted Neuro: General: oriented to person, oriented to place and oriented to time Motor exam (neuro): 5/5 motor strength present throughout Assessment & Plan Assessment and plan (1) COVID-19 virus infection: Status: Acute (2) Renal failure (ARF), acute on chronic: Status: Acute (3) DVT (deep venous thrombosis): Status: Acute (4) Hypertension: Status: Acute (5) Acid reflux: Status: Acute Assessment and Plan: 1. Non-Oliguric XANDER: cont decr SCr off evie/diuretic FENa >1% c/w ATN 2. CKD 3: bsl SCr 1.5; c/w HTN reanl dis 3. COVID with abnl CXR c/w COVID liung injury REC: cont to hold EVIE/diuretic; avoid NToxins Will follow with med team Time Spent With Patient Time: Total time spent is greater than 50% in coordination of care (as documented) at patient's floor/unit and/or counseling patient:
[2020-03-21] MEDS: 0.9 % Sodium Chloride Flush 3 ML SYRINGE IVFLUSH ×3 (00:22→23:04)
[2020-03-21] MEDS: 0.9 % Sodium Chloride 1,000 ML 100 ML IVCONT (00:22)
[2020-03-21 03:48] VITALS: BP 158/72; PULSE 73; RESP 18; TEMP 36; O2SAT 92
[2020-03-21] MEDS: Omeprazole 20 MG CAPSULE.DR PO (06:04)
[2020-03-21 06:18] LABS: Hematocrit 33.4 % (37-47); Mean Corpuscular HGB Conc 32.9 g/dl (31.0-35.0); Mean Corpuscular Hemoglobin 28.5 pg (27.0-33.0); Mean Corpuscular Volume 86.5 fL (80-98); Mean Platelet Volume 12.1 fL (9.4-12.3); NRBC Pct Auto 0.2 /100WBC (0.0-0.2); Platelet Count 305 X10*3/uL (160-400); Red Blood Count 3.86 X10*6/uL (4.20-5.50); Red Cell Distribution Width 15.4 % (11.0-16.0); White Blood Count 9.1 X10*3/uL (4.8-10.8)
[2020-03-21 06:59] LABS: Anion Gap 12 (12-20); Blood Urea Nitrogen 16 mg/dL (9-16); Calcium 7.9 mg/dL (8.4-10.2); Carbon Dioxide 25 mmol/L (22-29); Chloride 104 mmol/L (96-108); Creatinine Clr Calc Pharmacy 33.2; Estimated Glomerular Filt Rate 35; Glucose Random 78 mg/dL (60-115); Potassium 3.2 mmol/l (3.3-5.1); Sodium 138 mmol/L (135-145)
[2020-03-21 07:43] VITALS: BP 149/84; PULSE 92; RESP 20; TEMP 36.2; O2SAT 93
[2020-03-21] MEDS: hydroCHLOROthiazide 25 MG TABLET PO (08:44)
[2020-03-21] MEDS: Aspirin Enteric Coated 81 MG TABLET.DR PO (08:44)
--- NOTE | 2020-03-21 11:15 | MHC.CM.PN ---
IMM 03/21/20 Female +COVID. PT eval ordered. Dispo pending input from P.T.. Family is asking for transportation to be provided. The whole Family has COVID. They are all in quarantine currently. Contact is Carmel Almendarez # in chart. Unruly Gramajo, listed as the 1st contact, is a nonworking #. CM will follow.
[2020-03-21 11:17] LABS: INTERNATIONAL NORM RATIO 3.6 (0.9-1.1); Prothrombin Time 43.2 SEC (10.8-13.0)
[2020-03-21 11:26] VITALS: BP 155/83; PULSE 62; RESP 18; TEMP 36.2; O2SAT 94
[2020-03-21] MEDS: Potassium Chloride ER 20 MEQ TAB.ER.PRT PO (11:54)
--- NOTE | 2020-03-21 15:08 | P.PNIM_ITS ---
Subjective Subjective Date of Service: 03/21/20 Interval History: Feels better. No fever or dyspnea. Cough improving. Myalgias improving. History taken in Vietnamese from patient. Physical Exam Vital Signs: Vital Signs: Last Vital Signs Temp 97.1 F 03/21/20 11:26 Pulse 62 03/21/20 11:26 Resp 18 03/21/20 11:26 BP 155/83 H 03/21/20 11:26 Pulse Ox 94 03/21/20 11:26 Body Mass Index 33.5 Const: General: no acute distress and alert Orientation/consciousness: patient oriented x3 Eyes: Sclerae: sclerae normal Chest: Chest palpation & inspection: normal inspection of the chest Resp: Effort & Inspection: normal respiratory effort and able to speak in complete sentences Cardio: Rate: regular rate Peripheral pulses: Peripheral pulses 2+ throughout GI: Palpation (GI): Soft to palpation and nontender Neuro: General: patient oriented x3 and no focal motor deficits Objective Data Current Medications Generic Name Dose Route Start Last Admin Trade Name Freq PRN Reason Stop Dose Admin Acetaminophen 650 mg 03/19/20 15:47 03/20/20 07:58 Acetaminophen 325 Mg Tablet PO 650 mg Q6H PRN Administration Pain, Mild (Pain Scale 1-3) Aspirin 81 mg 03/18/20 01:15 03/21/20 08:44 Aspirin Enteric Coated 81 Mg Tablet. PO 81 mg DAILY [facility] Administration Furosemide 20 mg 03/18/20 08:00 03/20/20 07:58 Furosemide 20 Mg Tablet PO 20 mg Q48H [facility] Administration Protocol Hydrochlorothiazide 25 mg 03/18/20 09:00 03/21/20 08:44 Hydrochlorothiazide 25 Mg Tablet PO 25 mg DAILY [facility] Administration Lisinopril 40 mg 03/18/20 09:00 Lisinopril 40 Mg Tablet PO DAILY [facility] Protocol Omeprazole 20 mg 03/18/20 06:30 03/21/20 06:04 Omeprazole 20 Mg Capsule. PO 20 mg DAILY@0630 [facility] Administration Sodium Chloride 3 ml 03/18/20 08:00 03/21/20 08:51 0.9 % Sodium Chloride Flush 3 Ml Syringe IVFLUSH Not Given QSHIFT [facility] Warfarin Sodium 20 mg 03/19/20 16:00 Warfarin Sodium 10 Mg Tablet PO SA@1600 [facility] Warfarin Sodium 15 mg 03/18/20 16:00 Warfarin Sodium 7.5 Mg Tablet PO SUMOTUWETHFR@1600 [facility] Labs CBC & Chem 7: 03/21/20 05:43 03/21/20 05:43 Labs: Laboratory Results - last 24 hr 03/21/20 03/21/20 03/21/20 05:43 05:43 10:47 WBC 9.1 RBC 3.86 L Hgb 11.0 L Hct 33.4 L MCV 86.5 MCH 28.5 MCHC 32.9 RDW 15.4 Plt Count 305 MPV 12.1 Absolute Nucleated RBC 0.020 H Nucleated RBC % (auto) 0.2 PT 43.2 H INR 3.6 H Sodium 138 Potassium 3.2 L Chloride 104 Carbon Dioxide 25 Anion Gap 12 BUN 16 Creatinine 1.43 H Estim Creat Clear Calc 33.2 Estimated GFR 35 Random Glucose 78 Calcium 7.9 L Microbiology Microbiology Results: Microbiology 03/18/20 01:24 Blood - Venous Blood Culture - Preliminary No growth after 48 hours. 03/18/20 01:26 Blood - Venous Blood Culture - Preliminary No growth after 48 hours. 03/18/20 03:38 Urine clean catch - Clean Catch Midstream Urine Culture - Final Assessment and Plan (1) Renal failure (ARF), acute on chronic: Status: Acute (2) DVT (deep venous thrombosis): Status: Acute (3) COVID-19 virus infection: Status: Acute (4) Hypertension: Status: Acute Assessment and Plan: hospital d#4 84yo F with CKD3, HTN, hx DVT anticoagulated on warfarin admitted for XANDER, COVID-19 pneumonia # COVID-19 - not hypoxic. did not get dexamethasone but at this point I do not think it is indicated. # XANDER/CKD3 - Cr improved, probably close to baseline # HTN - held TZ, restart lisinopril at low dose, monitor Cr # hypoK - replete, recheck # hx DVT - INR supratherapeutic, continue to hold warfarin, monitor INR # dispo - PT eval, possibly home with VNA tomorrow
--- NOTE | 2020-03-21 15:36 | MHC.CM.PN ---
Spoke with Carmel Almendarez 2nd contact and her [employer]. Notified Carmel maki DC today. Reported P.T.eval outcome. Pt does not qualify for STR. CM will follow.
[2020-03-21 15:44] VITALS: BP 142/70; PULSE 79; RESP 18; TEMP 37; O2SAT 92
[2020-03-21 19:35] VITALS: BP 166/72; PULSE 65; RESP 18; TEMP 37.1; O2SAT 94
[2020-03-21 23:37] VITALS: BP 157/79; PULSE 87; RESP 18; TEMP 36.3; O2SAT 91
[2020-03-22 03:55] VITALS: BP 139/70; PULSE 72; RESP 18; TEMP 35.9; O2SAT 92
[2020-03-22] MEDS: Omeprazole 20 MG CAPSULE.DR PO (06:24)
[2020-03-22 07:12] VITALS: BP 166/77; PULSE 72; RESP 18; TEMP 36.5; O2SAT 91
[2020-03-22] MEDS: hydroCHLOROthiazide 25 MG TABLET PO (07:16)
[2020-03-22 07:17] LABS: INTERNATIONAL NORM RATIO 2.9 (0.9-1.1); Prothrombin Time 34.8 SEC (10.8-13.0)
[2020-03-22] MEDS: Aspirin Enteric Coated 81 MG TABLET.DR PO (07:17)
[2020-03-22] MEDS: 0.9 % Sodium Chloride Flush 3 ML SYRINGE IVFLUSH (07:17)
[2020-03-22] MEDS: Furosemide 20 MG TABLET PO (07:17)
[2020-03-22 10:34] LABS: Anion Gap 15 (12-20); Blood Urea Nitrogen 21 mg/dL (9-16); Calcium 8.9 mg/dL (8.4-10.2); Carbon Dioxide 28 mmol/L (22-29); Chloride 102 mmol/L (96-108); Estimated Glomerular Filt Rate 30; Glucose Random 87 mg/dL (60-115); Potassium 4.2 mmol/l (3.3-5.1); Sodium 141 mmol/L (135-145)
[2020-03-22 11:29] VITALS: BP 153/80; PULSE 78; RESP 18; TEMP 36.3; O2SAT 93
--- NOTE | 2020-03-22 12:02 | MHC.CM.PN ---
IMM 03/21/20 PLAN IS DC TODAY. CALLED NIMISHA SULLIVAN. Notified DC today. She stated that her Son was providing transport to home. Prior to Hospitalization AC therapy was managed at Coumadin clinic. Care transitions @ [facility], Christiane Paige was contacted for DP. MINAYA requesting return call to arrange AC therapy management. Request made to NIMISHA Burt to have son Unruly call. His phone #on file is incorrect.
--- NOTE | 2020-03-22 13:33 | P.F2F_ITS ---
Service Date Service Date: 03/22/20 Encounter Date of encounter: 03/22/20 Reasons for Services Reason for senior care: medication management, medication treatment and teach disease management Reason for physical therapy: home safety and mobility, therapeutic exercises, gait/transfer training, assess need for DME, ADL training and energy conservation Homebound: Leaving the home is medically contraindicated at this time without the asist of a device and/or another person due th the listed conditions above and below. Reason homebound: unsteady gait / fall risk and immunosuppression / infection risk Homebound supporting statement: The patient was admitted to [facility] [place] 03/18-03/22/20 for COVID-19 pneumonia with acute kidney injury. Certification: Based on the above findings, I certify that this patient is confined to the home and needs intermittent senior care care, physical therapy and/or speech therapy, or continues to need occupational therapy. The patient is under my care, and I have initiated the establishment of the plan of care. The patient will be followed by a physician who will periodically review the plan of care.
--- NOTE | 2020-03-22 14:23 | PM.DS ---
DS: Providers Provider Date of admission: 03/18/20 01:13 Primary care physician: Anil Valenzuela MD Consults: 03/18/20 01:42 Consult to Nephrology Routine Consulting Provider: [facility] Reason for consultation: XANDER Has provider been notified: No DS: Diagnosis Discharge Diagnosis (1) Renal failure (ARF), acute on chronic: Status: Acute Problem details: CKD3 (2) DVT (deep venous thrombosis): Status: Acute (3) COVID-19 virus infection: Status: Acute (4) Hypertension: Status: Acute DS: Summary Hospital Course Hospital Course: From history and physical by admitting hospitalist Leatha Milligan, 03/17/20: 84 y/o female who presented from home c/o nasuea and vomiting x for the past week. Patient reports that started feeling malaise since saturday and now is presenting with poor appetite and has not been drinking plenty of fluids at home. On presentation to the ED patient was found to be hemodynamically stable, no leukocytosis, hgb of 11.7, electrolytes WNL, creatinine of 3.1(with baseline of 1.4), covid positive, CXR showing bilateral patchy opacities. Patient placed on isolation and decision for admission given. Patient seen and evaluated at the bedside, laying down in bed in no acute distress. ROS as above otherwise negative. Physical exam unremarkable. Denies any chest pain, SOB, diarrhea, constipation or fever. No sick contacts or any recent travel. 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 The patient was admitted to the isolation unit. She was not hypoxic and fasted not get dexamethasone, remdesivir, or convalescent plasma. FENa was >1%, consistent with ATN; this improved with holding her diuretics and EVIE-I. Lisinopril was resumed at a lower dose of 5 mg a day upon discharge and she should repeat basic metabolic panel in 1 week. Warfarin was held for supratherapeutic INR, and once less than 3, and was resumed with order to recheck INR 1 week. She was discharged home with [facility] services for INR monitoring and physical therapy. She should maintain isolation for 10 days from the onset of symptoms, which was approximately 03/11/2020; therefore she is essentially done with isolation. She should follow up with her primary care doctor in 1 week Time Spent with Patient Time attestation: Total time spent providing and/or coordinating discharge services: 40 Discharge coordination time: Greater than 30 minutes Physical Exam Vital Signs: Vital Signs: Last Vital Signs Temp 97.3 F 03/22/20 11:29 Pulse 78 03/22/20 11:29 Resp 18 03/22/20 11:29 BP 153/80 H 03/22/20 11:29 Pulse Ox 93 03/22/20 11:29 Body Mass Index 33.5 Const: General: no acute distress and alert Orientation/consciousness: patient oriented x3 Eyes: Sclerae: sclerae normal Chest: Chest palpation & inspection: normal inspection of the chest Resp: Effort & Inspection: normal respiratory effort and able to speak in complete sentences Cardio: Rate: regular rate Peripheral pulses: Peripheral pulses 2+ throughout GI: Palpation (GI): Soft to palpation and nontender Neuro: General: patient oriented x3 and no focal motor deficits DS: Data Data Completed and Pending Labs on day of discharge: Laboratory Tests 03/17/20 03/17/20 03/17/20 18:33 18:33 18:33 WBC 8.6 RBC 4.05 L Hgb 11.7 L Hct 35.4 L MCV 87.4 MCH 28.9 MCHC 33.1 RDW 15.7 Plt Count 248 MPV 10.9 Immature Gran % (Auto) 0.6 H Neut % (Auto) 68.0 Lymph % (Auto) 18.8 L [place] % (Auto) 12.5 H Eos % (Auto) 0.0 Baso % (Auto) 0.1 Lymph # (Auto) 1.6 [place] # (Auto) 1.1 Eos # (Auto) 0.0 Baso # (Auto) 0.0 Abs Immat Gran (auto) 0.05 H Absolute Neuts (auto) 5.8 Absolute Nucleated RBC 0.030 H Nucleated RBC % (auto) 0.3 H PT INR APTT Sodium Cancelled Potassium Cancelled Chloride Cancelled Carbon Dioxide Cancelled Anion Gap Cancelled BUN Cancelled Creatinine Cancelled Estim Creat Clear Calc Cancelled Estimated GFR Cancelled Random Glucose Cancelled Lactic Acid Calcium Cancelled Total Bilirubin Cancelled Direct Bilirubin Cancelled AST Cancelled ALT Cancelled Alkaline Phosphatase Cancelled Total Protein Cancelled Albumin Cancelled Lipase Cancelled Urine Color Urine Appearance Urine pH Ur Specific [place] Urine Protein Urine Glucose (UA) Urine Ketones Urine Blood Urine Nitrite Ur Leukocyte Esterase Urine RBC Urine WBC Ur WBC Total Counted Ur Squamous Epith Cells Urine Bacteria Urine Eosinophils Urine Eosinophils % U Random Total Protein Ur Random Sodium Urine Creatinine Coronavirus (PCR) 03/17/20 03/17/20 03/17/20 19:15 19:15 22:14 WBC RBC Hgb Hct MCV MCH MCHC RDW Plt Count MPV Immature Gran % (Auto) Neut % (Auto) Lymph % (Auto) [place] % (Auto) Eos % (Auto) Baso % (Auto) Lymph # (Auto) [place] # (Auto) Eos # (Auto) Baso # (Auto) Abs Immat Gran (auto) Absolute Neuts (auto) Absolute Nucleated RBC Nucleated RBC % (auto) PT INR APTT Sodium 137 Potassium 3.9 Chloride 101 Carbon Dioxide 24 Anion Gap 16 BUN 43 H Creatinine 3.16 H Estim Creat Clear Calc 14.2 Estimated GFR 14 Random Glucose 96 Lactic Acid Calcium 8.0 L Total Bilirubin 0.4 Direct Bilirubin 0.3 AST 39 H ALT 15 Alkaline Phosphatase 88 Total Protein 8.0 Albumin 3.6 Lipase 42 Urine Color Urine Appearance Urine pH Ur Specific [place] Urine Protein Urine Glucose (UA) Urine Ketones Urine Blood Urine Nitrite Ur Leukocyte Esterase Urine RBC Urine WBC Ur WBC Total Counted Ur Squamous Epith Cells Urine Bacteria Urine Eosinophils Urine Eosinophils % U Random Total Protein Ur Random Sodium Urine Creatinine Coronavirus (PCR) POSITIVE A 03/18/20 03/18/20 03/18/20 01:24 01:24 03:42 WBC RBC Hgb Hct MCV MCH MCHC RDW Plt Count MPV Immature Gran % (Auto) Neut % (Auto) Lymph % (Auto) [place] % (Auto) Eos % (Auto) Baso % (Auto) Lymph # (Auto) [place] # (Auto) Eos # (Auto) Baso # (Auto) Abs Immat Gran (auto) Absolute Neuts (auto) Absolute Nucleated RBC Nucleated RBC % (auto) PT 41.1 H INR 3.4 H APTT 38.8 H Sodium Potassium Chloride Carbon Dioxide Anion Gap BUN Creatinine Estim Creat Clear Calc Estimated GFR Random Glucose Lactic Acid 0.8 Calcium Total Bilirubin Direct Bilirubin AST ALT Alkaline Phosphatase Total Protein Albumin Lipase Urine Color YELLOW Urine Appearance CLEAR Urine pH 5.0 Ur Specific [place] 1.020 Urine Protein NEG Urine Glucose (UA) NEG Urine Ketones NEG Urine Blood TRACE Urine Nitrite NEG Ur Leukocyte Esterase 3+ H Urine RBC 0-2 Urine WBC 76-150 H Ur WBC Total Counted Ur Squamous Epith Cells 2+ Urine Bacteria TRACE Urine Eosinophils Urine Eosinophils % U Random Total Protein Ur Random Sodium Urine Creatinine Coronavirus (PCR) 03/18/20 03/18/20 03/18/20 05:35 05:35 10:46 WBC 7.8 RBC 3.66 L Hgb 10.3 L Hct 32.5 L MCV 88.8 MCH 28.1 MCHC 31.7 RDW 15.8 Plt Count 231 MPV 12.0 Immature Gran % (Auto) 0.8 H Neut % (Auto) 63.6 Lymph % (Auto) 21.3 [place] % (Auto) 14.3 H Eos % (Auto) 0.0 Baso % (Auto) 0.0 Lymph # (Auto) 1.7 [place] # (Auto) 1.1 Eos # (Auto) 0.0 Baso # (Auto) 0.0 Abs Immat Gran (auto) 0.06 H Absolute Neuts (auto) 5.0 Absolute Nucleated RBC 0.020 H Nucleated RBC % (auto) 0.3 H PT 41.4 H INR 3.4 H APTT Sodium 139 Potassium 3.8 Chloride 107 Carbon Dioxide 21 L Anion Gap 15 BUN 38 H Creatinine 2.35 H Estim Creat Clear Calc 20.2 Estimated GFR 20 Random Glucose 81 Lactic Acid Calcium 7.4 L D Total Bilirubin Direct Bilirubin AST ALT Alkaline Phosphatase Total Protein Albumin Lipase Urine Color Urine Appearance Urine pH Ur Specific [place] Urine Protein Urine Glucose (UA) Urine Ketones Urine Blood Urine Nitrite Ur Leukocyte Esterase Urine RBC Urine WBC Ur WBC Total Counted Ur Squamous Epith Cells Urine Bacteria Urine Eosinophils Urine Eosinophils % U Random Total Protein Ur Random Sodium Urine Creatinine Coronavirus (PCR) 03/18/20 03/18/20 03/19/20 13:00 13:00 06:22 WBC RBC Hgb Hct MCV MCH MCHC RDW Plt Count MPV Immature Gran % (Auto) Neut % (Auto) Lymph % (Auto) [place] % (Auto) Eos % (Auto) Baso % (Auto) Lymph # (Auto) [place] # (Auto) Eos # (Auto) Baso # (Auto) Abs Immat Gran (auto) Absolute Neuts (auto) Absolute Nucleated RBC Nucleated RBC % (auto) PT 40.0 H INR 3.3 H APTT Sodium Potassium Chloride Carbon Dioxide Anion Gap BUN Creatinine Estim Creat Clear Calc Estimated GFR Random Glucose Lactic Acid Calcium Total Bilirubin Direct Bilirubin AST ALT Alkaline Phosphatase Total Protein Albumin Lipase Urine Color Urine Appearance Urine pH Ur Specific [place] Urine Protein Urine Glucose (UA) Urine Ketones Urine Blood Urine Nitrite Ur Leukocyte Esterase Urine RBC Urine WBC Ur WBC Total Counted 100 Ur Squamous Epith Cells Urine Bacteria Urine Eosinophils 0 Urine Eosinophils % 0.0 U Random Total Protein 9 Ur Random Sodium 125.0 Urine Creatinine 19.01 Coronavirus (PCR) 03/20/20 03/20/20 03/20/20 06:36 06:36 12:05 WBC 10.6 RBC 4.06 L Hgb 11.5 L Hct 35.2 L MCV 86.7 MCH 28.3 MCHC 32.7 RDW 15.4 Plt Count 314 D MPV 12.3 Immature Gran % (Auto) Neut % (Auto) Lymph % (Auto) [place] % (Auto) Eos % (Auto) Baso % (Auto) Lymph # (Auto) [place] # (Auto) Eos # (Auto) Baso # (Auto) Abs Immat Gran (auto) Absolute Neuts (auto) Absolute Nucleated RBC 0.030 H Nucleated RBC % (auto) 0.3 H PT 45.4 H INR 3.8 H APTT Sodium 137 Potassium 3.5 Chloride 102 Carbon Dioxide 25 Anion Gap 14 BUN 16 D Creatinine 1.45 H Estim Creat Clear Calc 32.8 Estimated GFR 34 Random Glucose 87 Lactic Acid Calcium 8.0 L D Total Bilirubin Direct Bilirubin AST ALT Alkaline Phosphatase Total Protein Albumin Lipase Urine Color Urine Appearance Urine pH Ur Specific [place] Urine Protein Urine Glucose (UA) Urine Ketones Urine Blood Urine Nitrite Ur Leukocyte Esterase Urine RBC Urine WBC Ur WBC Total Counted Ur Squamous Epith Cells Urine Bacteria Urine Eosinophils Urine Eosinophils % U Random Total Protein Ur Random Sodium Urine Creatinine Coronavirus (PCR) 03/21/20 03/21/20 03/21/20 05:43 05:43 10:47 WBC 9.1 RBC 3.86 L Hgb 11.0 L Hct 33.4 L MCV 86.5 MCH 28.5 MCHC 32.9 RDW 15.4 Plt Count 305 MPV 12.1 Immature Gran % (Auto) Neut % (Auto) Lymph % (Auto) [place] % (Auto) Eos % (Auto) Baso % (Auto) Lymph # (Auto) [place] # (Auto) Eos # (Auto) Baso # (Auto) Abs Immat Gran (auto) Absolute Neuts (auto) Absolute Nucleated RBC 0.020 H Nucleated RBC % (auto) 0.2 PT 43.2 H INR 3.6 H APTT Sodium 138 Potassium 3.2 L Chloride 104 Carbon Dioxide 25 Anion Gap 12 BUN 16 Creatinine 1.43 H Estim Creat Clear Calc 33.2 Estimated GFR 35 Random Glucose 78 Lactic Acid Calcium 7.9 L Total Bilirubin Direct Bilirubin AST ALT Alkaline Phosphatase Total Protein Albumin Lipase Urine Color Urine Appearance Urine pH Ur Specific [place] Urine Protein Urine Glucose (UA) Urine Ketones Urine Blood Urine Nitrite Ur Leukocyte Esterase Urine RBC Urine WBC Ur WBC Total Counted Ur Squamous Epith Cells Urine Bacteria Urine Eosinophils Urine Eosinophils % U Random Total Protein Ur Random Sodium Urine Creatinine Coronavirus (PCR) 03/22/20 03/22/20 05:56 09:42 WBC RBC Hgb Hct MCV MCH MCHC RDW Plt Count MPV Immature Gran % (Auto) Neut % (Auto) Lymph % (Auto) [place] % (Auto) Eos % (Auto) Baso % (Auto) Lymph # (Auto) [place] # (Auto) Eos # (Auto) Baso # (Auto) Abs Immat Gran (auto) Absolute Neuts (auto) Absolute Nucleated RBC Nucleated RBC % (auto) PT 34.8 H INR 2.9 H APTT Sodium 141 Potassium 4.2 D Chloride 102 Carbon Dioxide 28 Anion Gap 15 BUN 21 H Creatinine 1.64 H Estim Creat Clear Calc 29.0 Estimated GFR 30 Random Glucose 87 Lactic Acid Calcium 8.9 D Total Bilirubin Direct Bilirubin AST ALT Alkaline Phosphatase Total Protein Albumin Lipase Urine Color Urine Appearance Urine pH Ur Specific [place] Urine Protein Urine Glucose (UA) Urine Ketones Urine Blood Urine Nitrite Ur Leukocyte Esterase Urine RBC Urine WBC Ur WBC Total Counted Ur Squamous Epith Cells Urine Bacteria Urine Eosinophils Urine Eosinophils % U Random Total Protein Ur Random Sodium Urine Creatinine Coronavirus (PCR) CXR 03/17/20: Multifocal infiltrates in both lungs, right greater than left. Discharge Plan Discharge Anticipated Discharge Date/Time: 03/22/20 13:35 Patient Disposition: Home Health Service Referrals: Anil Hubbard MD [Primary Care Provider] - Discharge Medications: New warfarin [Jantoven] 7.5 mg Tablet 15 mg PO DAILY@1600 Qty: 60 RF: 0 lisinopril 5 mg tablet 5 mg PO DAILY Qty: 30 RF: 0 Continued acetaminophen 325 mg tablet 1 tab PO QAM RF: 0 cyanocobalamin (vitamin B-12) 1,000 mcg tablet 1 tab PO QAM RF: 0 diphenoxylate-atropine 2.5-0.025 mg tablet 1 tab PO QID PRN (Reason: Loose Stool) RF: 0 aspirin 81 mg tablet,delayed release (DR/EC) 1 tab PO QAM RF: 0 omeprazole 20 mg capsule,delayed release(DR/EC) 1 cap PO QAM RF: 0 calcitriol 0.25 mcg capsule 1 cap PO 3XW RF: 0 diclofenac sodium 1 % gel 2 g topical BID PRN (Reason: Pain) RF: 0 lidocaine 5 % ointment 1 applic topical BID RF: 0 Discontinued chlorthalidone 25 mg tablet 1 tab PO QAM RF: 0 warfarin 5 mg Tablet 20 mg PO SA@1600 RF: 0 warfarin 5 mg Tablet 15 mg PO SUMOTUWETHFR@1600 RF: 0 furosemide 20 mg tablet 1 tab PO Q OTHER DAY RF: 0 lisinopril 40 mg tablet 1 tab PO QAM RF: 0 warfarin 5 mg tablet See Rx Instructions mg .ROUTE .COMPLEX Qty: 90 RF: 0 Discharge Orders: Discharge Order (Routine); Ordered 03/22/20 Ordered By: Kyle Stacy Diet: low salt diet Activity on Discharge: As tolerated Patient Instructions: Viral Pneumonia (DC), Acute Kidney Injury (DC) Stand Alone Forms: Community Support Other Ambulatory Orders: Basic Metabolic Panel (Routine) Timeframe: 1 Week Facility: [facility] - Location: Laboratory Ordered By: Kyle Stacy Prothrombin Time INR (Routine) Timeframe: 1 Week Facility: [facility] - Location: Laboratory Ordered By: Kyle Stacy Visit Report Forms: Patient Portal Discharge page Care Plan Goals: recovery from pneumonia improvement in renal function Health Concerns: COVID-19 pneumonia acute kidney injury Plan of Treatment: may discontinue isolation after 10 days from onset of symptoms, which was approximately 03/11/20 HOLD chlorthalidone and furosemide; DECREASE lisinopril from 40 mg daily to 5 mg daily continue warfarin at dose of 15 mg EVERY DAY; recheck INR in 1 week follow up with your primary care doctor in ONE WEEK
--- NOTE | 2020-03-22 14:52 | MHC.CM.PN ---
ADRI TODAY WITH [facility] FOR AC THERAPY MANAGEMENT. SON PROVIDING TRANSPORT
== END 2020-03-22 15:49 | disposition home health service (06) | DRG 178 ==
LOC: HO.ED 23:53 → HO.IMC 03-18 01:24
PROVIDERS: Internal Medicine; Internal Medicine Nephrology; Admitting Provider Internal Medicine; Emergency Provider Internal Medicine; PCP Internal Medicine; Visit Provider Family Medicine
DX: U07.1 COVID-19 (principal); N17.9 Acute kidney failure, unspecified; N18.4 Chronic kidney disease, stage 4 (severe); K21.9 Gastro-esophageal reflux disease without esophagitis; Z96.653 Presence of artificial knee joint, bilateral; Z23 Encounter for immunization; Z79.01 Long term (current) use of anticoagulants; Z79.82 Long term (current) use of aspirin; Z79.899 Other long term (current) drug therapy; I12.9 Hypertensive chronic kidney disease with stage 1 through stage 4 chronic kidney disease, or unspecified chronic kidney disease; Z86.718 Personal history of other venous thrombosis and embolism; E86.0 Dehydration
CPT/HCPCS: 36415; 71045; 80048; 80076; 81001; 81003; 83605; 83690; 84156; 84300; 85025; 85027; 85610; 85730; 87040; 87086; 89190; 90686; 96361; 96374; 96375; 97161; 99285; J0456; J0696; J2405; U0003

== ENCOUNTER → 2020-03-25 15:33 | Outpatient (BNVA) | payer MEDICARE, SELFPAY | PROVIDERS: PCP Family Medicine; Visit Provider Internal Medicine | DX: Z76.89 Persons encountering health services in other specified circumstances (principal) ==

== ENCOUNTER → 2020-03-29 11:52 | Outpatient (BNVA) | payer MEDICARE, SELFPAY | PROVIDERS: PCP Family Medicine; Visit Provider Internal Medicine | DX: Z86.718 Personal history of other venous thrombosis and embolism (principal); Z51.81 Encounter for therapeutic drug level monitoring; Z79.01 Long term (current) use of anticoagulants | CPT/HCPCS: Q3014 ==

== ENCOUNTER → 2020-04-05 14:53 | Outpatient (BNVA) | payer MEDICARE, SELFPAY | PROVIDERS: PCP Family Medicine; Visit Provider Internal Medicine | DX: Z86.718 Personal history of other venous thrombosis and embolism (principal); Z51.81 Encounter for therapeutic drug level monitoring; Z79.01 Long term (current) use of anticoagulants | CPT/HCPCS: Q3014 ==

== ENCOUNTER → 2020-04-12 11:18 | Outpatient (BNVA) | payer MEDICARE, SELFPAY | PROVIDERS: PCP Internal Medicine; Visit Provider Internal Medicine | DX: Z86.718 Personal history of other venous thrombosis and embolism (principal); Z79.01 Long term (current) use of anticoagulants; Z51.81 Encounter for therapeutic drug level monitoring | CPT/HCPCS: Q3014 ==

== ENCOUNTER → 2020-04-19 11:51 | Outpatient (BNVA) | payer MEDICARE, SELFPAY | PROVIDERS: PCP Family Medicine; Referring Provider Family Medicine; Visit Provider Internal Medicine | DX: Z13.89 Encounter for screening for other disorder (principal) | CPT/HCPCS: Q3014 ==

== ENCOUNTER → 2020-04-26 11:39 | Outpatient (BNVA) | payer MEDICARE, SELFPAY | PROVIDERS: PCP Family Medicine; Visit Provider Internal Medicine | DX: Z86.718 Personal history of other venous thrombosis and embolism (principal); Z51.81 Encounter for therapeutic drug level monitoring; Z79.01 Long term (current) use of anticoagulants | CPT/HCPCS: Q3014 ==

== ENCOUNTER → 2020-04-29 15:27 | Outpatient (BNVA) | payer MEDICARE, SELFPAY | PROVIDERS: PCP Family Medicine; Visit Provider Internal Medicine | DX: Z86.718 Personal history of other venous thrombosis and embolism (principal); Z51.81 Encounter for therapeutic drug level monitoring; Z79.01 Long term (current) use of anticoagulants | CPT/HCPCS: Q3014 ==

== ENCOUNTER → 2020-05-03 11:53 | Outpatient (BNVA) | payer MEDICARE, SELFPAY | PROVIDERS: PCP Family Medicine; Visit Provider Internal Medicine | DX: I82.402 Acute embolism and thrombosis of unspecified deep veins of left lower extremity (principal); Z79.01 Long term (current) use of anticoagulants; Z51.81 Encounter for therapeutic drug level monitoring | CPT/HCPCS: Q3014 ==

== ENCOUNTER → 2020-05-10 10:14 | Outpatient (BNVA) | payer MEDICARE, SELFPAY | PROVIDERS: PCP Family Medicine; Visit Provider Internal Medicine | DX: Z86.718 Personal history of other venous thrombosis and embolism (principal); Z51.81 Encounter for therapeutic drug level monitoring; Z79.01 Long term (current) use of anticoagulants | CPT/HCPCS: Q3014 ==

== ENCOUNTER → 2020-05-12 08:30 | Outpatient (BNVA) | payer MEDICARE, SELFPAY | PROVIDERS: PCP Family Medicine; Visit Provider Internal Medicine | DX: Z86.718 Personal history of other venous thrombosis and embolism (principal); Z51.81 Encounter for therapeutic drug level monitoring; Z79.01 Long term (current) use of anticoagulants | CPT/HCPCS: Q3014 ==

== ENCOUNTER → 2020-05-16 08:45 | Outpatient (BNVA) | payer MEDICARE, SELFPAY | PROVIDERS: PCP Family Medicine; Visit Provider Internal Medicine | DX: Z86.718 Personal history of other venous thrombosis and embolism (principal); Z51.81 Encounter for therapeutic drug level monitoring; Z79.01 Long term (current) use of anticoagulants | CPT/HCPCS: Q3014 ==

== ENCOUNTER → 2020-05-19 10:54 | Outpatient (BNVA) | payer MEDICARE, SELFPAY | PROVIDERS: PCP Family Medicine; Visit Provider Internal Medicine | DX: Z86.718 Personal history of other venous thrombosis and embolism (principal); Z51.81 Encounter for therapeutic drug level monitoring; Z79.01 Long term (current) use of anticoagulants | CPT/HCPCS: Q3014 ==

== ENCOUNTER 2020-05-27 09:16 | Outpatient (REF) | payer MEDICARE, SELFPAY ==
--- NOTE | 2020-05-27 09:49 | XR_ITS ---
EXAMINATION: LEFT ANKLE AND LEFT FOOT. CLINICAL INFORMATION: Pain left foot. COMPARISON: None TECHNIQUE: Left foot 3 views. Left ankle 2 views. FINDINGS: LEFT FOOT: There is no visible acute fracture, dislocation or subluxation seen. There is diffuse osteopenia no visible fracture or periosteal thickening. The soft tissues are normal. LEFT ANKLE: The ankle mortise and subtalar joints is preserved. There are subchondral cystic changes this fibula. There is a small retrocalcaneal and a moderate size calcaneal enthesophytes. No visible acute fracture or dislocation seen. There is bimalleolar and anterior ankle soft tissue swelling. XR/XR foot LT min 3V IMPRESSION: Diffuse osteopenia. No visible acute fracture or dislocation left foot or left ankle. There is bimalleolar soft tissue swelling and anterior ankle soft tissue swelling. There is a small retrocalcaneal and a moderate size calcaneal heel enthesophytes.
--- NOTE | 2020-05-27 09:50 | XR_ITS ---
EXAMINATION: LEFT ANKLE AND LEFT FOOT. CLINICAL INFORMATION: Pain left foot. COMPARISON: None TECHNIQUE: Left foot 3 views. Left ankle 2 views. FINDINGS: LEFT FOOT: There is no visible acute fracture, dislocation or subluxation seen. There is diffuse osteopenia no visible fracture or periosteal thickening. The soft tissues are normal. LEFT ANKLE: The ankle mortise and subtalar joints is preserved. There are subchondral cystic changes this fibula. There is a small retrocalcaneal and a moderate size calcaneal enthesophytes. No visible acute fracture or dislocation seen. There is bimalleolar and anterior ankle soft tissue swelling. XR/XR ankle LT min 3V IMPRESSION: Diffuse osteopenia. No visible acute fracture or dislocation left foot or left ankle. There is bimalleolar soft tissue swelling and anterior ankle soft tissue swelling. There is a small retrocalcaneal and a moderate size calcaneal heel enthesophytes.
[2020-05-27 11:27] LABS: MANUAL DIFF FLAG NO
[2020-05-27 11:43] LABS: Glucose Urine UA NEG (NEG); Leukocyte Esterase Urine NEG (NEG); Nitrite Urine NEG (NEG); PH 5.5 (5.0-8.0); Specific Gravity - Urine 1.025 (1.005-1.025); Urine Blood TRACE (NEG); Urine Ketones NEG (NEG); Urine Protein NEG (NEG-TRACE)
[2020-05-27 11:44] LABS: Appearance Urine CLEAR; Color Urine YELLOW
[2020-05-27 11:53] LABS: Basophils Percent Auto 0.2 % (0-2); Eosinophils Absolute Auto 0.1 X10*3/uL (0.0-0.4); Eosinophils Percent Auto 1.6 % (0-4); Hematocrit 30.7 % (37-47); Hemoglobin 9.8 g/dl (12.0-16.0); Imm Gran Abs Auto 0.03 X10*3/uL (0.00-0.03); Imm Gran Pct Auto 0.3 % (0.0-0.4); Lymphocytes Absolute Auto 2.1 X10*3/uL (1.2-4.9); Lymphocytes Percent Auto 23.9 % (20-40); Mean Corpuscular HGB Conc 31.9 g/dl (31.0-35.0); Mean Corpuscular Hemoglobin 28.7 pg (27.0-33.0); Mean Platelet Volume 12.6 fL (9.4-12.3); Monocytes Absolute Auto 0.7 X10*3/uL (0.1-1.2); Monocytes Percent Auto 8.2 % (2-11); Neutrophils Absolute Auto 5.7 X10*3/uL (2.0-8.3); Neutrophils Percent Auto 65.8 % (45-73); Platelet Count 246 X10*3/uL (160-400); Red Blood Count 3.41 X10*6/uL (4.20-5.50); Red Cell Distribution Width 19.6 % (11.0-16.0); White Blood Count 8.7 X10*3/uL (4.8-10.8)
[2020-05-27 12:15] LABS: Anion Gap 13 (12-20); Blood Urea Nitrogen 26 mg/dL (9-16); Calcium 8.8 mg/dL (8.4-10.2); Carbon Dioxide 26 mmol/L (22-29); Chloride 108 mmol/L (96-108); Estimated Glomerular Filt Rate 30; Glucose Random 86 mg/dL (60-115); Potassium 4.3 mmol/l (3.3-5.1); Sodium 143 mmol/L (135-145)
[2020-05-27 12:17] LABS: RBC Urine 0-2 /HPF (0); Squamous Epithelial Cell Urine 1+ /LPF; WBC Urine 0-2 /HPF (0-4)
[2020-05-27 12:31] LABS: Ferritin 150 ng/mL (10-250); Vitamin D 25-OH Total 41.2 ng/mL (>30)
[2020-05-27 12:43] LABS: Iron 56 mcg/dL (30-160); Percent Iron Saturation 18 % (15-50); Total Iron Binding Capacity 304 mcg/dL (228-428); Unsaturated Iron Binding 248 ug/dL
[2020-05-27 12:46] LABS: Creatinine Urine 85.46 mg/dL; Protein/Creatinine Ratio, Ur 0.09 (<0.2); Total Protein Urine Random 8 mg/dL (<12)
[2020-05-30 16:32] LABS: Calcium (PTHI) 9.1 mg/dL (8.6-10.4); PTHI 136 pg/mL (14-64)
== END 2020-05-27 09:17 | disposition home or self-care (01) ==
LOC: HO.LAB 09:16
PROVIDERS: Absent Provider Student in an Organized Health Care Education/Training Program; PCP Family Medicine; Visit Provider Internal Medicine Nephrology
DX: M25.572 Pain in left ankle and joints of left foot (principal); M79.672 Pain in left foot; M47.816 Spondylosis without myelopathy or radiculopathy, lumbar region; N18.32 Chronic kidney disease, stage 3b; D63.1 Anemia in chronic kidney disease
CPT/HCPCS: 36415; 73610; 73630; 80048; 81001; 82306; 82728; 83540; 83970; 84156; 85025; 85610; 99211

== ENCOUNTER → 2020-06-06 09:44 | Outpatient (BNVA) | payer MEDICARE, SELFPAY | PROVIDERS: PCP Family Medicine; Visit Provider Internal Medicine | DX: Z86.718 Personal history of other venous thrombosis and embolism (principal); Z79.01 Long term (current) use of anticoagulants; Z51.81 Encounter for therapeutic drug level monitoring | CPT/HCPCS: 85610; 99211 ==

== ENCOUNTER → 2020-06-13 09:05 | Outpatient (BNVA) | payer MEDICARE, SELFPAY | PROVIDERS: PCP Family Medicine; Visit Provider Internal Medicine | DX: Z86.718 Personal history of other venous thrombosis and embolism (principal); Z51.81 Encounter for therapeutic drug level monitoring; Z79.01 Long term (current) use of anticoagulants | CPT/HCPCS: 85610; 99211 ==

== ENCOUNTER → 2020-06-20 09:29 | Outpatient (BNVA) | payer MEDICARE, SELFPAY | PROVIDERS: PCP Family Medicine; Visit Provider Internal Medicine | DX: Z86.718 Personal history of other venous thrombosis and embolism (principal); Z51.81 Encounter for therapeutic drug level monitoring; Z79.01 Long term (current) use of anticoagulants | CPT/HCPCS: 85610; 99211 ==

== ENCOUNTER → 2020-06-30 09:36 | Outpatient (BNVA) | payer MEDICARE, SELFPAY | PROVIDERS: PCP Internal Medicine; Referring Provider Internal Medicine; Visit Provider Student in an Organized Health Care Education/Training Program | DX: M89.49 Other hypertrophic osteoarthropathy, multiple sites (principal) | CPT/HCPCS: 99212 ==

== ENCOUNTER → 2020-07-04 09:34 | Outpatient (BNVA) | payer MEDICARE, SELFPAY | PROVIDERS: PCP Family Medicine; Visit Provider Internal Medicine | DX: Z86.718 Personal history of other venous thrombosis and embolism (principal); Z51.81 Encounter for therapeutic drug level monitoring; Z79.01 Long term (current) use of anticoagulants | CPT/HCPCS: 85610; 99211 ==

== ENCOUNTER → 2020-07-14 09:25 | Outpatient (BNVA) | payer MEDICARE, SELFPAY | PROVIDERS: PCP Family Medicine; Visit Provider Internal Medicine | DX: Z86.718 Personal history of other venous thrombosis and embolism (principal); Z51.81 Encounter for therapeutic drug level monitoring; Z79.01 Long term (current) use of anticoagulants | CPT/HCPCS: 85610; 99211 ==

== ENCOUNTER → 2020-07-21 09:19 | Outpatient (BNVA) | payer MEDICARE, SELFPAY | PROVIDERS: PCP Family Medicine; Visit Provider Internal Medicine | DX: Z86.718 Personal history of other venous thrombosis and embolism (principal); Z51.81 Encounter for therapeutic drug level monitoring; Z79.01 Long term (current) use of anticoagulants | CPT/HCPCS: 85610; 99211 ==

== ENCOUNTER → 2020-07-29 09:23 | Outpatient (BNVA) | payer MEDICARE, SELFPAY | PROVIDERS: PCP Family Medicine; Visit Provider Internal Medicine | DX: Z86.718 Personal history of other venous thrombosis and embolism (principal); Z51.81 Encounter for therapeutic drug level monitoring; Z79.01 Long term (current) use of anticoagulants | CPT/HCPCS: 85610; 99211 ==

== ENCOUNTER → 2020-08-11 09:08 | Outpatient (BNVA) | payer MEDICARE, SELFPAY | PROVIDERS: PCP Family Medicine; Visit Provider Internal Medicine | DX: Z86.718 Personal history of other venous thrombosis and embolism (principal); Z51.81 Encounter for therapeutic drug level monitoring; Z79.01 Long term (current) use of anticoagulants | CPT/HCPCS: 85610; 99211 ==

== ENCOUNTER → 2020-08-25 09:16 | Outpatient (BNVA) | payer MEDICARE, SELFPAY | PROVIDERS: PCP Family Medicine; Visit Provider Internal Medicine | DX: Z86.718 Personal history of other venous thrombosis and embolism (principal); Z79.01 Long term (current) use of anticoagulants; Z51.81 Encounter for therapeutic drug level monitoring | CPT/HCPCS: 85610; 99211 ==

== ENCOUNTER → 2020-09-15 09:10 | Outpatient (BNVA) | payer MEDICARE, SELFPAY | PROVIDERS: PCP Family Medicine; Visit Provider Internal Medicine | DX: Z86.718 Personal history of other venous thrombosis and embolism (principal); Z79.01 Long term (current) use of anticoagulants; Z51.81 Encounter for therapeutic drug level monitoring | CPT/HCPCS: 85610; 99211 ==

== ENCOUNTER → 2020-09-29 09:47 | Outpatient (BNVA) | payer MEDICARE, SELFPAY | PROVIDERS: PCP Family Medicine; Visit Provider Internal Medicine | DX: Z86.718 Personal history of other venous thrombosis and embolism (principal); Z51.81 Encounter for therapeutic drug level monitoring; Z79.01 Long term (current) use of anticoagulants | CPT/HCPCS: 85610; 99211 ==

== ENCOUNTER → 2020-10-27 09:34 | Outpatient (BNVA) | payer MEDICARE, SELFPAY | PROVIDERS: PCP Family Medicine; Visit Provider Internal Medicine | DX: Z86.718 Personal history of other venous thrombosis and embolism (principal); Z51.81 Encounter for therapeutic drug level monitoring; Z79.01 Long term (current) use of anticoagulants | CPT/HCPCS: 85610; 99211 ==

== ENCOUNTER → 2020-11-03 09:13 | Outpatient (BNVA) | payer MEDICARE, SELFPAY | PROVIDERS: PCP Family Medicine; Visit Provider Internal Medicine | DX: Z86.718 Personal history of other venous thrombosis and embolism (principal); Z51.81 Encounter for therapeutic drug level monitoring; Z79.01 Long term (current) use of anticoagulants | CPT/HCPCS: 85610; 99211 ==

== ENCOUNTER → 2020-11-17 09:20 | Outpatient (BNVA) | payer MEDICARE, SELFPAY | PROVIDERS: PCP Family Medicine; Visit Provider Internal Medicine | DX: Z86.718 Personal history of other venous thrombosis and embolism (principal); Z51.81 Encounter for therapeutic drug level monitoring; Z79.01 Long term (current) use of anticoagulants | CPT/HCPCS: 85610; 99211 ==

== ENCOUNTER → 2020-11-21 09:30 | Outpatient (BNVA) | payer MEDICARE, SELFPAY | PROVIDERS: PCP Family Medicine; Visit Provider Internal Medicine | DX: Z86.718 Personal history of other venous thrombosis and embolism (principal); Z51.81 Encounter for therapeutic drug level monitoring; Z79.01 Long term (current) use of anticoagulants | CPT/HCPCS: 85610; 99211 ==

== ENCOUNTER → 2020-11-29 09:39 | Outpatient (BNVA) | payer MEDICARE, SELFPAY | PROVIDERS: PCP Family Medicine; Visit Provider Internal Medicine | DX: Z86.718 Personal history of other venous thrombosis and embolism (principal); Z51.81 Encounter for therapeutic drug level monitoring; Z79.01 Long term (current) use of anticoagulants | CPT/HCPCS: 85610; 99211 ==

== ENCOUNTER → 2020-12-13 09:31 | Outpatient (BNVA) | payer MEDICARE, SELFPAY | PROVIDERS: PCP Family Medicine; Visit Provider Internal Medicine | DX: Z86.718 Personal history of other venous thrombosis and embolism (principal); Z51.81 Encounter for therapeutic drug level monitoring; Z79.01 Long term (current) use of anticoagulants | CPT/HCPCS: 85610; 99211 ==

== ENCOUNTER → 2020-12-16 09:43 | Outpatient (BNVA) | payer MEDICARE, SELFPAY | PROVIDERS: PCP Family Medicine; Visit Provider Internal Medicine | DX: Z86.718 Personal history of other venous thrombosis and embolism (principal); Z51.81 Encounter for therapeutic drug level monitoring; Z79.01 Long term (current) use of anticoagulants | CPT/HCPCS: 85610; 99211 ==

== ENCOUNTER → 2020-12-23 09:15 | Outpatient (BNVA) | payer MEDICARE, SELFPAY | PROVIDERS: PCP Family Medicine; Visit Provider Internal Medicine | DX: Z86.718 Personal history of other venous thrombosis and embolism (principal); Z51.81 Encounter for therapeutic drug level monitoring; Z79.01 Long term (current) use of anticoagulants | CPT/HCPCS: 85610; 99211 ==

== ENCOUNTER → 2021-01-05 09:14 | Outpatient (BNVA) | payer MEDICARE, SELFPAY | PROVIDERS: PCP Family Medicine; Visit Provider Internal Medicine | DX: Z86.718 Personal history of other venous thrombosis and embolism (principal); Z51.81 Encounter for therapeutic drug level monitoring; Z79.01 Long term (current) use of anticoagulants | CPT/HCPCS: 85610; 99211 ==

== ENCOUNTER → 2021-01-13 09:45 | Outpatient (BNVA) | payer MEDICARE, SELFPAY | PROVIDERS: PCP Family Medicine; Visit Provider Internal Medicine | DX: Z86.718 Personal history of other venous thrombosis and embolism (principal); Z51.81 Encounter for therapeutic drug level monitoring; Z79.01 Long term (current) use of anticoagulants | CPT/HCPCS: 85610 ==

== ENCOUNTER 2021-01-19 10:02 | Outpatient (REF) | payer MEDICARE, SELFPAY ==
--- NOTE | ~2021-01-19 | XR_ITS ---
EXAMINATION: XR KNEE, LEFT CLINICAL INFORMATION: Left knee pain. COMPARISON: Left knee radiographs dated 07/20/2019. TECHNIQUE: Four views of the left knee. FINDINGS: Hinged total left knee arthroplasty. No hardware or osseous fracture. No perihardware lucency to suggest loosening or infection. Small joint effusion. Atherosclerotic calcifications. XR/XR knee LT 4V IMPRESSION: Total left knee arthroplasty without evidence of hardware complication. Small joint effusion.
== END 2021-01-19 10:03 | disposition home or self-care (01) ==
LOC: HO.XRAY 10:02
PROVIDERS: PCP Family Medicine; Visit Provider Family Medicine
DX: M25.562 Pain in left knee (principal); Z96.653 Presence of artificial knee joint, bilateral
CPT/HCPCS: 73564

== ENCOUNTER → 2021-01-27 09:06 | Outpatient (BNVA) | payer MEDICARE, SELFPAY | PROVIDERS: PCP Family Medicine; Visit Provider Internal Medicine | DX: Z86.718 Personal history of other venous thrombosis and embolism (principal); Z51.81 Encounter for therapeutic drug level monitoring; Z79.01 Long term (current) use of anticoagulants | CPT/HCPCS: 85610; 99211 ==

== ENCOUNTER 2021-02-10 09:20 | Outpatient (REF) | payer MEDICARE, SELFPAY ==
[2021-02-10 10:25] LABS: Alanine Aminotransferase 10 U/L (0-31); Albumin Level 3.9 g/dL (3.5-5.0); Alkaline Phosphatase 108 U/L (39-117); Anion Gap 12 (12-20); Aspartate Amino Transferase 18 U/L (5-31); Bilirubin Total 0.6 mg/dL (0.0-1.0); Blood Urea Nitrogen 26 mg/dL (9-16); Calcium 9.6 mg/dL (8.4-10.2); Carbon Dioxide 28 mmol/L (22-29); Chloride 105 mmol/L (96-108); Estimated Glomerular Filt Rate 30; Glucose Random 93 mg/dL (60-115); Potassium 3.9 mmol/L (3.3-5.1); Sodium 141 mmol/L (135-145); Total Protein 8.1 g/dL (6.5-8.0)
== END 2021-02-10 09:21 | disposition home or self-care (01) ==
LOC: HO.LAB 09:20
PROVIDERS: Student in an Organized Health Care Education/Training Program; PCP Family Medicine; Visit Provider Nurse Practitioner Family
DX: M89.49 Other hypertrophic osteoarthropathy, multiple sites (principal); Z86.718 Personal history of other venous thrombosis and embolism; Z51.81 Encounter for therapeutic drug level monitoring; Z79.01 Long term (current) use of anticoagulants
CPT/HCPCS: 36415; 80053; 85610; 99211

== ENCOUNTER → 2021-02-23 09:26 | Outpatient (BNVA) | payer MEDICARE, SELFPAY | PROVIDERS: PCP Family Medicine; Visit Provider Internal Medicine | DX: Z86.718 Personal history of other venous thrombosis and embolism (principal); Z51.81 Encounter for therapeutic drug level monitoring; Z79.01 Long term (current) use of anticoagulants | CPT/HCPCS: 85610; 99211 ==

== ENCOUNTER → 2021-03-09 09:43 | Outpatient (BNVA) | payer MEDICARE, SELFPAY | PROVIDERS: PCP Family Medicine; Visit Provider Internal Medicine | DX: Z86.718 Personal history of other venous thrombosis and embolism (principal); Z51.81 Encounter for therapeutic drug level monitoring; Z79.01 Long term (current) use of anticoagulants | CPT/HCPCS: 85610; 99211 ==

== ENCOUNTER → 2021-03-23 09:22 | Outpatient (BNVA) | payer MEDICARE, SELFPAY | PROVIDERS: PCP Family Medicine; Visit Provider Internal Medicine | DX: Z86.718 Personal history of other venous thrombosis and embolism (principal); Z79.01 Long term (current) use of anticoagulants; Z51.81 Encounter for therapeutic drug level monitoring | CPT/HCPCS: 85610; 99211 ==

== ENCOUNTER → 2021-03-29 09:07 | Outpatient (BNVA) | payer MEDICARE, SELFPAY | PROVIDERS: PCP Family Medicine; Visit Provider Internal Medicine | DX: Z86.718 Personal history of other venous thrombosis and embolism (principal); Z51.81 Encounter for therapeutic drug level monitoring; Z79.01 Long term (current) use of anticoagulants | CPT/HCPCS: 85610; 99211 ==

== ENCOUNTER → 2021-04-03 10:39 | Outpatient (BNVA) | payer MEDICARE, SELFPAY | PROVIDERS: PCP Family Medicine; Visit Provider Internal Medicine | DX: Z86.718 Personal history of other venous thrombosis and embolism (principal); Z51.81 Encounter for therapeutic drug level monitoring; Z79.01 Long term (current) use of anticoagulants | CPT/HCPCS: 85610; 99211 ==

== ENCOUNTER → 2021-04-13 10:22 | Outpatient (BNVA) | payer MEDICARE, SELFPAY | PROVIDERS: PCP Family Medicine; Visit Provider Internal Medicine | DX: Z86.718 Personal history of other venous thrombosis and embolism (principal); Z51.81 Encounter for therapeutic drug level monitoring; Z79.01 Long term (current) use of anticoagulants | CPT/HCPCS: 85610; 99211 ==

== ENCOUNTER → 2021-04-27 09:22 | Outpatient (BNVA) | payer MEDICARE, SELFPAY | PROVIDERS: PCP Family Medicine; Visit Provider Internal Medicine | DX: Z86.718 Personal history of other venous thrombosis and embolism (principal); Z51.81 Encounter for therapeutic drug level monitoring; Z79.01 Long term (current) use of anticoagulants | CPT/HCPCS: 85610; 99211 ==

== ENCOUNTER → 2021-05-11 12:54 | Outpatient (BNVA) | payer MEDICARE, SELFPAY | PROVIDERS: PCP Family Medicine; Visit Provider Internal Medicine | DX: Z86.718 Personal history of other venous thrombosis and embolism (principal); Z51.81 Encounter for therapeutic drug level monitoring; Z79.01 Long term (current) use of anticoagulants | CPT/HCPCS: 85610; 99211 ==

== ENCOUNTER → 2021-05-23 08:41 | Outpatient (BNVA) | payer MEDICARE, SELFPAY | PROVIDERS: PCP Family Medicine; Visit Provider Internal Medicine | DX: Z86.718 Personal history of other venous thrombosis and embolism (principal); Z51.81 Encounter for therapeutic drug level monitoring; Z79.01 Long term (current) use of anticoagulants | CPT/HCPCS: 85610; 99211 ==

== ENCOUNTER → 2021-06-06 09:01 | Outpatient (BNVA) | payer MEDICARE, SELFPAY | PROVIDERS: PCP Family Medicine; Visit Provider Internal Medicine | DX: Z86.718 Personal history of other venous thrombosis and embolism (principal); Z51.81 Encounter for therapeutic drug level monitoring; Z79.01 Long term (current) use of anticoagulants | CPT/HCPCS: 85610; 99211 ==

== ENCOUNTER → 2021-06-22 09:13 | Outpatient (BNVA) | payer MEDICARE, SELFPAY | PROVIDERS: PCP Family Medicine; Visit Provider Internal Medicine | DX: Z86.718 Personal history of other venous thrombosis and embolism (principal); Z51.81 Encounter for therapeutic drug level monitoring; Z79.01 Long term (current) use of anticoagulants | CPT/HCPCS: 85610; 99211 ==

== ENCOUNTER → 2021-07-13 09:57 | Outpatient (BNVA) | payer MEDICARE, SELFPAY | PROVIDERS: PCP Family Medicine; Visit Provider Internal Medicine | DX: Z86.718 Personal history of other venous thrombosis and embolism (principal); Z51.81 Encounter for therapeutic drug level monitoring; Z79.01 Long term (current) use of anticoagulants | CPT/HCPCS: 85610; 99211 ==

== ENCOUNTER → 2021-08-01 08:55 | Outpatient (BNVA) | payer MEDICARE, SELFPAY | PROVIDERS: PCP Family Medicine; Visit Provider Internal Medicine | DX: Z86.718 Personal history of other venous thrombosis and embolism (principal); Z51.81 Encounter for therapeutic drug level monitoring; Z79.01 Long term (current) use of anticoagulants | CPT/HCPCS: 85610; 99211 ==

== ENCOUNTER → 2021-08-03 11:15 | Outpatient (BNVA) | payer MEDICARE, SELFPAY | PROVIDERS: PCP Family Medicine; Visit Provider Nurse Practitioner Family | DX: M89.49 Other hypertrophic osteoarthropathy, multiple sites (principal) | CPT/HCPCS: 99212 ==

== ENCOUNTER → 2021-08-15 08:34 | Outpatient (BNVA) | payer OTHER, SELFPAY | PROVIDERS: PCP Family Medicine; Visit Provider Internal Medicine | DX: Z86.718 Personal history of other venous thrombosis and embolism (principal); Z51.81 Encounter for therapeutic drug level monitoring; Z79.01 Long term (current) use of anticoagulants | CPT/HCPCS: 85610; 99211 ==

== ENCOUNTER → 2021-08-29 09:22 | Outpatient (BNVA) | payer MEDICARE, SELFPAY | PROVIDERS: PCP Family Medicine; Visit Provider Internal Medicine | DX: Z86.718 Personal history of other venous thrombosis and embolism (principal); Z79.01 Long term (current) use of anticoagulants; Z51.81 Encounter for therapeutic drug level monitoring | CPT/HCPCS: 85610; 99211 ==

== ENCOUNTER → 2021-09-12 09:10 | Outpatient (BNVA) | payer MEDICARE, SELFPAY | PROVIDERS: PCP Family Medicine; Visit Provider Internal Medicine | DX: Z86.718 Personal history of other venous thrombosis and embolism (principal); Z79.01 Long term (current) use of anticoagulants; Z51.81 Encounter for therapeutic drug level monitoring | CPT/HCPCS: 85610; 99211 ==

== ENCOUNTER → 2021-10-03 09:39 | Outpatient (BNVA) | payer MEDICARE, SELFPAY | PROVIDERS: PCP Family Medicine; Visit Provider Internal Medicine | DX: Z86.718 Personal history of other venous thrombosis and embolism (principal); Z79.01 Long term (current) use of anticoagulants; Z51.81 Encounter for therapeutic drug level monitoring | CPT/HCPCS: 85610; 99211 ==

== ENCOUNTER → 2021-10-05 09:32 | Outpatient (BNVA) | payer MEDICARE, SELFPAY | PROVIDERS: PCP Family Medicine; Visit Provider Internal Medicine | DX: Z86.718 Personal history of other venous thrombosis and embolism (principal); Z79.01 Long term (current) use of anticoagulants; Z51.81 Encounter for therapeutic drug level monitoring | CPT/HCPCS: 85610; 99211 ==

== ENCOUNTER → 2021-10-19 09:31 | Outpatient (BNVA) | payer MEDICARE, SELFPAY | PROVIDERS: PCP Family Medicine; Visit Provider Internal Medicine | DX: Z86.718 Personal history of other venous thrombosis and embolism (principal); Z79.01 Long term (current) use of anticoagulants; Z51.81 Encounter for therapeutic drug level monitoring | CPT/HCPCS: 85610; 99211 ==

== ENCOUNTER → 2021-11-02 09:28 | Outpatient (BNVA) | payer MEDICARE, SELFPAY | PROVIDERS: PCP Family Medicine; Visit Provider Internal Medicine | DX: Z86.718 Personal history of other venous thrombosis and embolism (principal); Z51.81 Encounter for therapeutic drug level monitoring; Z79.01 Long term (current) use of anticoagulants | CPT/HCPCS: 85610 ==

== ENCOUNTER → 2021-11-23 09:40 | Outpatient (BNVA) | payer MEDICARE, SELFPAY | PROVIDERS: PCP Family Medicine; Visit Provider Internal Medicine | DX: Z86.718 Personal history of other venous thrombosis and embolism (principal); Z51.81 Encounter for therapeutic drug level monitoring; Z79.01 Long term (current) use of anticoagulants | CPT/HCPCS: 85610; 99211 ==

== ENCOUNTER 2021-12-07 09:33 | Outpatient (REF) | payer OTHER, SELFPAY ==
[2021-12-07 10:20] LABS: MANUAL DIFF FLAG NO
[2021-12-07 10:22] LABS: Basophils Percent Auto 0.2 % (0-2); Eosinophils Absolute Auto 0.2 X10*3/uL (0.0-0.4); Eosinophils Percent Auto 2.1 % (0-4); Hematocrit 31.3 % (37.0-47.0); Hemoglobin 10.4 g/dl (12.0-16.0); Imm Gran Abs Auto 0.03 X10*3/uL (0.00-0.03); Imm Gran Pct Auto 0.3 % (0.0-0.4); Lymphocytes Absolute Auto 2.1 X10*3/uL (1.2-4.9); Lymphocytes Percent Auto 22.9 % (20-40); Mean Corpuscular HGB Conc 33.2 g/dl (31.0-35.0); Mean Corpuscular Hemoglobin 30.4 pg (27.0-33.0); Mean Corpuscular Volume 91.5 fL (80.0-98.0); Mean Platelet Volume 12.1 fL (9.4-12.3); Monocytes Absolute Auto 0.9 X10*3/uL (0.1-1.2); Monocytes Percent Auto 9.3 % (2-11); Neutrophils Percent Auto 65.2 % (45-73); Platelet Count 242 X10*3/uL (160-400); Red Blood Count 3.42 X10*6/uL (4.20-5.50); Red Cell Distribution Width 16.7 % (11.0-16.0); White Blood Count 9.2 X10*3/uL (4.8-10.8)
[2021-12-07 10:34] LABS: Estimated Average Glucose 105 mg/dL; Hemoglobin A1c % 5.3 %
[2021-12-07 10:36] LABS: INTERNATIONAL NORM RATIO 5.5 (0.9-1.1)
[2021-12-07 11:29] LABS: Alanine Aminotransferase 7 U/L (0-31); Albumin Level 3.8 g/dL (3.5-5.0); Alkaline Phosphatase 87 U/L (39-117); Anion Gap 11 (12-20); Aspartate Amino Transferase 17 U/L (5-31); Bilirubin Total 0.6 mg/dL (0.0-1.0); Blood Urea Nitrogen 39 mg/dL (9-16); Calcium 8.8 mg/dL (8.4-10.2); Carbon Dioxide 24 mmol/L (22-29); Chloride 109 mmol/L (96-108); Cholesterol 147 mg/dL; Estimated Glomerular Filt Rate 28; Glucose Random 90 mg/dL (60-115); HDL Cholesterol 36 mg/dL; LDL Cholesterol Calculated 96 mg/dl; Potassium 3.9 mmol/L (3.3-5.1); Sodium 140 mmol/L (135-145); Total Protein 7.8 g/dL (6.5-8.0); Triglycerides 76 mg/dL
[2021-12-07 11:39] LABS: TSH reflex Free T4 0.93 uIU/mL (0.32-4.0)
[2021-12-07 11:46] LABS: Uric Acid 6.6 mg/dL (2.4-5.7)
== END 2021-12-07 09:34 | disposition home or self-care (01) ==
LOC: HO.LAB 09:33
PROVIDERS: Internal Medicine; PCP Family Medicine; Visit Provider Family Medicine
DX: I12.9 Hypertensive chronic kidney disease with stage 1 through stage 4 chronic kidney disease, or unspecified chronic kidney disease (principal); N18.30 Chronic kidney disease, stage 3 unspecified; Z86.718 Personal history of other venous thrombosis and embolism; Z51.81 Encounter for therapeutic drug level monitoring; Z79.01 Long term (current) use of anticoagulants
CPT/HCPCS: 36415; 80053; 80061; 83036; 84443; 84550; 85025; 85610; 99212

== ENCOUNTER → 2021-12-12 09:52 | Outpatient (BNVA) | payer OTHER, SELFPAY | PROVIDERS: PCP Family Medicine; Visit Provider Internal Medicine | DX: Z86.718 Personal history of other venous thrombosis and embolism (principal); Z79.01 Long term (current) use of anticoagulants; Z51.81 Encounter for therapeutic drug level monitoring | CPT/HCPCS: 85610; 99211 ==

== ENCOUNTER → 2021-12-14 09:44 | Outpatient (BNVA) | payer OTHER, SELFPAY | PROVIDERS: PCP Family Medicine; Visit Provider Internal Medicine | DX: Z86.718 Personal history of other venous thrombosis and embolism (principal); Z51.81 Encounter for therapeutic drug level monitoring; Z79.01 Long term (current) use of anticoagulants | CPT/HCPCS: 85610; 99211 ==

== ENCOUNTER → 2021-12-19 09:47 | Outpatient (BNVA) | payer OTHER, SELFPAY | PROVIDERS: PCP Family Medicine; Visit Provider Internal Medicine | DX: Z86.718 Personal history of other venous thrombosis and embolism (principal); Z79.01 Long term (current) use of anticoagulants; Z51.81 Encounter for therapeutic drug level monitoring | CPT/HCPCS: 85610; 99211 ==

== ENCOUNTER → 2021-12-26 09:53 | Outpatient (BNVA) | payer OTHER, SELFPAY | PROVIDERS: PCP Family Medicine; Visit Provider Internal Medicine | DX: Z86.718 Personal history of other venous thrombosis and embolism (principal); Z79.01 Long term (current) use of anticoagulants; Z51.81 Encounter for therapeutic drug level monitoring | CPT/HCPCS: 85610; 99211 ==

== ENCOUNTER → 2022-01-08 09:41 | Outpatient (BNVA) | payer OTHER, SELFPAY | PROVIDERS: PCP Family Medicine; Visit Provider Internal Medicine | DX: Z86.718 Personal history of other venous thrombosis and embolism (principal); Z79.01 Long term (current) use of anticoagulants; Z51.81 Encounter for therapeutic drug level monitoring | CPT/HCPCS: 85610; 99211 ==

== ENCOUNTER → 2022-01-29 09:58 | Outpatient (BNVA) | payer OTHER, SELFPAY | PROVIDERS: PCP Family Medicine; Visit Provider Internal Medicine | DX: Z86.718 Personal history of other venous thrombosis and embolism (principal); Z79.01 Long term (current) use of anticoagulants; Z51.81 Encounter for therapeutic drug level monitoring | CPT/HCPCS: 85610; 99211 ==

== ENCOUNTER → 2022-02-26 10:11 | Outpatient (BNVA) | payer OTHER, SELFPAY | PROVIDERS: PCP Family Medicine; Visit Provider Internal Medicine | DX: Z86.718 Personal history of other venous thrombosis and embolism (principal); Z79.01 Long term (current) use of anticoagulants; Z51.81 Encounter for therapeutic drug level monitoring | CPT/HCPCS: 85610; 99211 ==

== ENCOUNTER → 2022-03-12 10:16 | Outpatient (BNVA) | payer OTHER, SELFPAY | PROVIDERS: PCP Family Medicine; Visit Provider Internal Medicine | DX: Z86.718 Personal history of other venous thrombosis and embolism (principal); Z79.01 Long term (current) use of anticoagulants; Z51.81 Encounter for therapeutic drug level monitoring | CPT/HCPCS: 85610; 99211 ==

== ENCOUNTER → 2022-03-14 09:44 | Outpatient (BNVA) | payer OTHER, SELFPAY | PROVIDERS: PCP Family Medicine; Visit Provider Internal Medicine | DX: Z86.718 Personal history of other venous thrombosis and embolism (principal); Z79.01 Long term (current) use of anticoagulants; Z51.81 Encounter for therapeutic drug level monitoring | CPT/HCPCS: 85610; 99211 ==

== ENCOUNTER → 2022-03-20 11:32 | Outpatient (BNVA) | payer OTHER, SELFPAY | PROVIDERS: PCP Family Medicine; Visit Provider Internal Medicine | DX: Z86.718 Personal history of other venous thrombosis and embolism (principal); Z79.01 Long term (current) use of anticoagulants; Z51.81 Encounter for therapeutic drug level monitoring | CPT/HCPCS: 85610; 99211 ==

== ENCOUNTER → 2022-03-29 11:11 | Outpatient (BNVA) | payer OTHER, SELFPAY | PROVIDERS: PCP Family Medicine; Visit Provider Internal Medicine | DX: Z86.718 Personal history of other venous thrombosis and embolism (principal); Z79.01 Long term (current) use of anticoagulants; Z51.81 Encounter for therapeutic drug level monitoring | CPT/HCPCS: 85610; 99211 ==

== ENCOUNTER → 2022-04-16 10:47 | Outpatient (BNVA) | payer OTHER, SELFPAY | PROVIDERS: PCP Family Medicine; Visit Provider Internal Medicine | DX: Z86.718 Personal history of other venous thrombosis and embolism (principal); Z79.01 Long term (current) use of anticoagulants; Z51.81 Encounter for therapeutic drug level monitoring | CPT/HCPCS: 85610; 99211 ==

== ENCOUNTER → 2022-05-02 08:55 | Outpatient (BNVA) | payer OTHER, SELFPAY | PROVIDERS: PCP Family Medicine; Visit Provider Internal Medicine | DX: Z86.718 Personal history of other venous thrombosis and embolism (principal); Z79.01 Long term (current) use of anticoagulants; Z51.81 Encounter for therapeutic drug level monitoring | CPT/HCPCS: 85610; 99211 ==

== ENCOUNTER → 2022-05-17 13:38 | Outpatient (BNVA) | payer OTHER, SELFPAY | PROVIDERS: PCP Family Medicine; Visit Provider Internal Medicine | DX: Z86.718 Personal history of other venous thrombosis and embolism (principal); Z79.01 Long term (current) use of anticoagulants; Z51.81 Encounter for therapeutic drug level monitoring | CPT/HCPCS: 85610; 99212 ==

== ENCOUNTER → 2022-05-21 13:45 | Outpatient (BNVA) | payer OTHER, SELFPAY | PROVIDERS: PCP Family Medicine; Visit Provider Internal Medicine | DX: Z86.718 Personal history of other venous thrombosis and embolism (principal); Z79.01 Long term (current) use of anticoagulants; Z51.81 Encounter for therapeutic drug level monitoring | CPT/HCPCS: 85610; 99211 ==

== ENCOUNTER → 2022-05-28 13:34 | Outpatient (BNVA) | payer OTHER, SELFPAY | PROVIDERS: PCP Family Medicine; Visit Provider Internal Medicine | DX: Z86.718 Personal history of other venous thrombosis and embolism (principal); Z79.01 Long term (current) use of anticoagulants; Z51.81 Encounter for therapeutic drug level monitoring | CPT/HCPCS: 85610; 99211 ==

== ENCOUNTER → 2022-06-18 13:37 | Outpatient (BNVA) | payer OTHER, SELFPAY | PROVIDERS: PCP Family Medicine; Visit Provider Internal Medicine | DX: Z86.718 Personal history of other venous thrombosis and embolism (principal); Z79.01 Long term (current) use of anticoagulants; Z51.81 Encounter for therapeutic drug level monitoring | CPT/HCPCS: 85610; 99211 ==

== ENCOUNTER → 2022-07-09 13:34 | Outpatient (BNVA) | payer OTHER, SELFPAY | PROVIDERS: PCP Family Medicine; Visit Provider Internal Medicine | DX: Z86.718 Personal history of other venous thrombosis and embolism (principal); Z79.01 Long term (current) use of anticoagulants; Z51.81 Encounter for therapeutic drug level monitoring | CPT/HCPCS: 85610 ==

== ENCOUNTER → 2022-07-23 13:05 | Outpatient (BNVA) | payer OTHER, SELFPAY | PROVIDERS: PCP Family Medicine; Visit Provider Internal Medicine | DX: Z86.718 Personal history of other venous thrombosis and embolism (principal); Z79.01 Long term (current) use of anticoagulants; Z51.81 Encounter for therapeutic drug level monitoring | CPT/HCPCS: 85610; 99211 ==

== ENCOUNTER → 2022-08-06 13:11 | Outpatient (BNVA) | payer OTHER, SELFPAY | PROVIDERS: PCP Family Medicine; Visit Provider Internal Medicine | DX: Z86.718 Personal history of other venous thrombosis and embolism (principal); Z79.01 Long term (current) use of anticoagulants; Z51.81 Encounter for therapeutic drug level monitoring | CPT/HCPCS: 85610; 99211 ==

== ENCOUNTER → 2022-08-21 13:48 | Outpatient (BNVA) | payer OTHER, SELFPAY | PROVIDERS: PCP Family Medicine; Visit Provider Internal Medicine | DX: Z86.718 Personal history of other venous thrombosis and embolism (principal); Z51.81 Encounter for therapeutic drug level monitoring; Z79.01 Long term (current) use of anticoagulants | CPT/HCPCS: 85610; 99211 ==

== ENCOUNTER → 2022-09-04 13:47 | Outpatient (BNVA) | payer OTHER, SELFPAY | PROVIDERS: PCP Family Medicine; Visit Provider Internal Medicine | DX: Z86.718 Personal history of other venous thrombosis and embolism (principal); Z79.01 Long term (current) use of anticoagulants; Z51.81 Encounter for therapeutic drug level monitoring | CPT/HCPCS: 85610; 99211 ==

== ENCOUNTER → 2022-09-18 08:51 | Outpatient (BNVA) | payer OTHER, SELFPAY | PROVIDERS: PCP Family Medicine; Visit Provider Internal Medicine | DX: Z86.718 Personal history of other venous thrombosis and embolism (principal); Z79.01 Long term (current) use of anticoagulants; Z51.81 Encounter for therapeutic drug level monitoring | CPT/HCPCS: 85610; 99211 ==

== ENCOUNTER → 2022-10-02 08:47 | Outpatient (BNVA) | payer OTHER, SELFPAY | PROVIDERS: PCP Family Medicine; Visit Provider Internal Medicine | DX: Z86.718 Personal history of other venous thrombosis and embolism (principal); Z79.01 Long term (current) use of anticoagulants; Z51.81 Encounter for therapeutic drug level monitoring | CPT/HCPCS: 85610; 99211 ==

== ENCOUNTER → 2022-10-23 08:30 | Outpatient (BNVA) | payer OTHER, SELFPAY | PROVIDERS: PCP Family Medicine; Visit Provider Internal Medicine | DX: Z86.718 Personal history of other venous thrombosis and embolism (principal); Z79.01 Long term (current) use of anticoagulants; Z51.81 Encounter for therapeutic drug level monitoring | CPT/HCPCS: 85610; 99211 ==

== ENCOUNTER 2022-11-20 08:52 | Outpatient (AMB) | payer OTHER, SELFPAY ==
[2022-11-20 09:26] LABS: Prothrombin Time Whole Bld POC 35.4 sec (11.1-13.5); ~PT, ~INR - Anti Coag Clinic 2.9 (0.9-1.1)
--- NOTE | 2022-11-20 09:27 | MHC.OFFVISCO ---
Intake Intake Visit Reasons: Anticoagulation Allergies No Known Allergies Allergy (Verified 11/20/22 09:20) Medication List - Last Reconciled 11/20/22 by Miya Miller RN acetaminophen 325 mg PO QID PRN acetaminophen 1,000 mg PO Q8H PRN allopurinol 200 mg PO DAILY amlodipine 5 mg PO DAILY ascorbic acid (vitamin C) 500 mg PO BID aspirin (Adult Low Dose Aspirin) 81 mg PO DAILY blood pressure test kit-large As directed calcitriol 0.25 mcg PO 3XW chlorthalidone 25 mg PO QAM cholecalciferol (vitamin D3) 25 mcg PO DAILY ciclopirox 0.77% 1 appl topical BID cyanocobalamin (vitamin B-12) 1 tab PO QAM ferrous sulfate 325 mg PO BID furosemide 0 mg PO lidocaine 5% 1 appl topical BID lisinopril 40 mg PO DAILY loperamide (Anti-Diarrheal (loperamide)) 2 mg PO QID PRN omeprazole 1 cap PO QAM warfarin 5 mg See Protocol PO Nursing Note PT CAME WITH LEVEL VIAL INSIDE GRINDER MAILE AMARAL AND HER CHILDREN - LEVEL VIAL INSIDE GRINDER MAKES MEALS FOR PT -SHE IS NOT RELATED TO HER INR: 2.9 in therapeutic range Medications and supplements reviewed No changes in health, diet, medications, or supplements, Denies any signs and symptoms of bleeding or bruising or clotting. 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
== END 2022-11-20 09:56 | disposition home or self-care (01) ==
LOC: HO.ACS 08:52
PROVIDERS: PCP Family Medicine; Visit Provider Internal Medicine
DX: Z79.01 Long term (current) use of anticoagulants (principal)

== ENCOUNTER → 2022-11-20 08:52 | Outpatient (BNVA) | payer OTHER, SELFPAY | PROVIDERS: PCP Family Medicine; Visit Provider Internal Medicine | DX: Z86.718 Personal history of other venous thrombosis and embolism (principal); Z79.01 Long term (current) use of anticoagulants; Z51.81 Encounter for therapeutic drug level monitoring | CPT/HCPCS: 85610; 99211 ==

== ENCOUNTER → 2022-12-18 10:12 | Outpatient (BNVA) | payer OTHER, SELFPAY | PROVIDERS: PCP Family Medicine; Visit Provider Internal Medicine ==

== ENCOUNTER → 2022-12-25 14:08 | Outpatient (BNVA) | payer OTHER, SELFPAY | PROVIDERS: PCP Family Medicine; Visit Provider Internal Medicine ==

== ENCOUNTER → 2023-01-01 13:07 | Outpatient (BNVA) | payer OTHER, SELFPAY | PROVIDERS: PCP Family Medicine; Visit Provider Internal Medicine ==

== ENCOUNTER → 2023-01-08 11:51 | Outpatient (BNVA) | payer OTHER, SELFPAY | PROVIDERS: PCP Family Medicine; Visit Provider Internal Medicine ==

== ENCOUNTER → 2023-01-15 12:05 | Outpatient (BNVA) | payer OTHER, SELFPAY | PROVIDERS: PCP Family Medicine; Visit Provider Internal Medicine ==

== ENCOUNTER → 2023-01-22 13:42 | Outpatient (BNVA) | payer OTHER, SELFPAY | PROVIDERS: PCP Family Medicine; Visit Provider Internal Medicine ==

== ENCOUNTER → 2023-01-29 11:23 | Outpatient (BNVA) | payer OTHER, SELFPAY | PROVIDERS: PCP Family Medicine; Visit Provider Internal Medicine ==

== ENCOUNTER → 2023-02-12 12:09 | Outpatient (BNVA) | payer OTHER, SELFPAY | PROVIDERS: PCP Family Medicine; Visit Provider Internal Medicine ==

== ENCOUNTER → 2023-02-15 14:40 | Outpatient (BNVA) | payer OTHER, SELFPAY | PROVIDERS: PCP Family Medicine; Visit Provider Internal Medicine ==

== ENCOUNTER → 2023-02-20 10:41 | Outpatient (BNVA) | payer OTHER, SELFPAY | PROVIDERS: PCP Family Medicine; Visit Provider Internal Medicine ==

== ENCOUNTER → 2023-02-25 09:47 | Outpatient (BNVA) | payer OTHER, SELFPAY | PROVIDERS: PCP Family Medicine; Visit Provider Internal Medicine ==

== ENCOUNTER → 2023-03-04 10:32 | Outpatient (BNVA) | payer OTHER, SELFPAY | PROVIDERS: PCP Family Medicine; Visit Provider Internal Medicine ==

== ENCOUNTER → 2023-03-11 13:52 | Outpatient (BNVA) | payer OTHER, SELFPAY | PROVIDERS: PCP Family Medicine; Visit Provider Internal Medicine ==

== ENCOUNTER → 2023-03-15 13:56 | Outpatient (BNVA) | payer OTHER, SELFPAY | PROVIDERS: PCP Family Medicine; Visit Provider Internal Medicine ==

== ENCOUNTER → 2023-03-18 12:12 | Outpatient (BNVA) | payer OTHER, SELFPAY | PROVIDERS: PCP Family Medicine; Visit Provider Internal Medicine ==

== ENCOUNTER → 2023-03-26 12:24 | Outpatient (BNVA) | payer OTHER, SELFPAY | PROVIDERS: PCP Family Medicine; Visit Provider Internal Medicine ==

== ENCOUNTER → 2023-04-01 14:43 | Outpatient (BNVA) | payer OTHER, SELFPAY | PROVIDERS: PCP Family Medicine; Visit Provider Internal Medicine ==

== ENCOUNTER → 2023-04-08 13:34 | Outpatient (BNVA) | payer OTHER, SELFPAY | PROVIDERS: PCP Family Medicine; Visit Provider Internal Medicine ==

== ENCOUNTER → 2023-04-22 13:32 | Outpatient (BNVA) | payer OTHER, SELFPAY | PROVIDERS: PCP Family Medicine; Visit Provider Internal Medicine ==

== ENCOUNTER → 2023-05-07 14:27 | Outpatient (BNVA) | payer OTHER, SELFPAY | PROVIDERS: PCP Family Medicine; Visit Provider Internal Medicine ==

== ENCOUNTER → 2023-05-10 12:05 | Outpatient (BNVA) | payer OTHER, SELFPAY | PROVIDERS: PCP Family Medicine; Visit Provider Internal Medicine ==

== ENCOUNTER → 2023-05-17 13:11 | Outpatient (BNVA) | payer OTHER, SELFPAY | PROVIDERS: PCP Family Medicine; Visit Provider Internal Medicine ==

== ENCOUNTER → 2023-05-29 12:53 | Outpatient (BNVA) | payer OTHER, SELFPAY | PROVIDERS: PCP Family Medicine; Visit Provider Internal Medicine ==

== ENCOUNTER → 2023-05-30 13:38 | Outpatient (BNVA) | payer OTHER, SELFPAY | PROVIDERS: PCP Family Medicine; Visit Provider Internal Medicine ==

== ENCOUNTER → 2023-06-13 11:12 | Outpatient (BNVA) | payer OTHER, SELFPAY | PROVIDERS: PCP Family Medicine; Visit Provider Internal Medicine ==

== ENCOUNTER 2023-06-14 09:37 | Outpatient (REF) | payer OTHER, SELFPAY ==
[2023-06-14 11:43] LABS: MANUAL DIFF FLAG NO
[2023-06-14 11:50] LABS: Basophils Percent Auto 0.2 % (0-2); Eosinophils Absolute Auto 0.2 X10*3/uL (0.0-0.4); Eosinophils Percent Auto 2.4 % (0-4); Hematocrit 30.9 % (37.0-47.0); Hemoglobin 10.2 g/dl (12.0-16.0); Imm Gran Abs Auto 0.02 X10*3/uL (0.00-0.03); Imm Gran Pct Auto 0.2 % (0.0-0.4); Lymphocytes Absolute Auto 2.4 X10*3/uL (1.2-4.9); Lymphocytes Percent Auto 28.5 % (20-40); Mean Corpuscular Volume 90.9 fL (80.0-98.0); Mean Platelet Volume 13.5 fL (9.4-12.3); Monocytes Absolute Auto 0.7 X10*3/uL (0.1-1.2); Monocytes Percent Auto 7.7 % (2-11); Neutrophils Absolute Auto 5.1 x10*3/uL (2.0-8.3); Platelet Count 198 X10*3/uL (160-400); Red Cell Distribution Width 15.9 % (11.0-16.0); White Blood Count 8.4 X10*3/uL (4.8-10.8)
[2023-06-14 12:03] LABS: Estimated Average Glucose 108 mg/dL; Hemoglobin A1c % 5.4 % (<6.0)
[2023-06-14 12:20] LABS: Alanine Aminotransferase 11 U/L (0-31); Albumin Level 3.6 g/dL (3.5-5.0); Alkaline Phosphatase 111 U/L (39-117); Anion Gap 11 (12-20); Aspartate Amino Transferase 21 U/L (5-31); Bilirubin Total 0.5 mg/dL (0.0-1.0); Blood Urea Nitrogen 42 mg/dL (9-16); Carbon Dioxide 25 mmol/L (22-29); Chloride 108 mmol/L (96-108); Cholesterol 145 mg/dL (<200); Estimated Glomerular Filt Rate 22; Glucose Random 85 mg/dL (60-115); HDL Cholesterol 34 mg/dL (>40); Iron 71 mcg/dL (30-160); LDL Cholesterol Calculated 88 mg/dL (<100); Percent Iron Saturation 32 % (15-50); Sodium 140 mmol/L (135-145); Total Iron Binding Capacity 221 mcg/dL (228-428); Triglycerides 115 mg/dL (<150); Unsaturated Iron Binding 150 ug/dL
[2023-06-14 12:39] LABS: Ferritin 541 ng/mL (10-250); Thyroid Stimulating Hormone 0.81 uIU/mL (0.32-4.0)
[2023-06-14 12:51] LABS: Reflex LDLD? No
[2023-06-14 18:59] LABS: Vitamin B12 1089 pg/mL (200-900)
== END 2023-06-14 09:38 | disposition home or self-care (01) ==
LOC: HO.HHCL 09:37
PROVIDERS: Visit Provider Family Medicine
DX: I12.9 Hypertensive chronic kidney disease with stage 1 through stage 4 chronic kidney disease, or unspecified chronic kidney disease (principal); N18.4 Chronic kidney disease, stage 4 (severe)
CPT/HCPCS: 36415; 80053; 80061; 82306; 82607; 82728; 82746; 83036; 83540; 84443; 85025

== ENCOUNTER → 2023-06-17 11:38 | Outpatient (BNVA) | payer OTHER, SELFPAY | PROVIDERS: PCP Family Medicine; Visit Provider Internal Medicine ==

== ENCOUNTER 2023-10-15 16:17 | Emergency (ER) | payer OTHER, SELFPAY ==
--- NOTE | ~2023-10-15 | XR_ITS ---
EXAMINATION: XR SHOULDER, LEFT CLINICAL INFORMATION: Atraumatic shoulder pain COMPARISON: None available. TECHNIQUE: 3 views of the left shoulder. FINDINGS: There is lucency in the humeral head. There is patchy lucency in the proximal humeral shaft. These findings may be related to bone demineralization. Underlying bony lesion cannot be excluded. Moderate glenohumeral joint arthritis. Moderate acromioclavicular arthritis, with distal clavicular irregularity. There is decrease in the subacromial space, which could be related to positioning/technique versus rotator cuff pathology. No acute fractures is identified. Greater tuberosity bony spurring present. No abnormal soft tissue calcification. XR/XR shoulder LT min 2V IMPRESSION: 1. Moderate glenohumeral and acromioclavicular arthritis.. 2. Decrease in the subacromial space could be related to positioning/technique versus rotator cuff pathology. 3. Lucency in the humeral head, and patchy lucencies in the proximal humerus otherwise. This could be related to bone demineralization. Correlate with clinical history for this factors. If there is clinical concern for bony lesion, metastatic disease consider further evaluation with bone scan. Alternately, recommend follow-up imaging to ensure stability.
[2023-10-15 16:44] VITALS: BP 109/52; PULSE 70; RESP 16; TEMP 36.5; O2SAT 96; BMI 27.5
[2023-10-15 17:14] LABS: Hematocrit 28.4 % (37.0-47.0); Hemoglobin 9.7 g/dl (12.0-16.0); Mean Corpuscular HGB Conc 34.2 g/dl (31.0-35.0); Mean Corpuscular Hemoglobin 31.3 pg (27.0-33.0); Mean Corpuscular Volume 91.6 fL (80.0-98.0); Mean Platelet Volume 12.5 fL (9.4-12.3); Platelet Count 227 X10*3/uL (160-400); Red Cell Distribution Width 15.5 % (11.0-16.0); White Blood Count 13.8 X10*3/uL (4.8-10.8)
[2023-10-15 17:16] LABS: Alanine Aminotransferase 15 U/L (0-31); Albumin Level 3.4 g/dL (3.5-5.0); Alkaline Phosphatase 106 U/L (39-117); Anion Gap 14 (12-20); Aspartate Amino Transferase 23 U/L (5-31); Blood Urea Nitrogen 35 mg/dL (9-16); Calcium 9.6 mg/dL (8.4-10.2); Carbon Dioxide 24 mmol/L (22-29); Chloride 106 mmol/L (96-108); Creatinine Clr Calc Pharmacy 19.6; Estimated Glomerular Filt Rate 23; Glucose Random 82 mg/dL (60-115); Potassium 3.8 mmol/L (3.3-5.1); Sodium 140 mmol/L (135-145); Total Protein 7.8 g/dL (6.5-8.0)
[2023-10-15 18:01] LABS: SLIDE REVIEW MANUAL DIFF
[2023-10-15 18:07] LABS: Eosinophils Absolute Manual 0.3 X10*3/uL (0.0-0.4); Eosinophils Percent Manual 2 % (0-4); Lymphocytes Absolute Manual 2.3 X10*3/uL (1.2-4.9); Lymphocytes Percent Manual 17 % (20-40); Monocytes Absolute Manual 0.7 X10*3/uL (0.1-1.2); Monocytes Percent Manual 5 % (2-11); Neutrophils Percent Manual 76 % (45-73)
[2023-10-15 18:09] LABS: Burr Cells 1+ (0-2) /OIF
[2023-10-15 18:10] LABS: Schistocytes 1+ (0-2) /OIF
[2023-10-15 18:11] LABS: Band Neutrophils Percent 0 % (3-5); Neutrophils Absolute Manual 10.5 X10*3/uL (2.0-8.3); Platelet Estimate NORMAL (NORMAL); Platelet Morphology Comment NORMAL; RBC Morphology NOTED
[2023-10-15 18:23] VITALS: BP 114/58; PULSE 65; RESP 16; TEMP 36.7; O2SAT 95
--- NOTE | 2023-10-15 19:48 | ED.EXTPRO ---
HPI - Extremity Problem General Chief complaint: Extremity Injury, Upper Stated complaint: L arm pain, bone pain everywhere Time Seen by Provider: 10/15/23 19:25 Source: patient and family Mode of arrival: ambulatory Limitations: no limitations History of Present Illness ED Provider: truong CENTENO Narrative: Patient 88 years old with history of arthritis and gout noticed increased swelling of the left shoulder for last 3 -4 days no history of trauma or fall no other joint swelling Related Data Home Medications ?Medication ?Instructions ?Recorded ?Confirmed cyanocobalamin (vitamin B-12) 1 tab PO QAM 03/17/20 06/13/23 1,000 mcg tablet omeprazole 20 mg capsule,delayed 1 cap PO QAM 03/17/20 06/13/23 release cholecalciferol (vitamin D3) 25 25 mcg PO DAILY 04/26/20 06/13/23 mcg (1,000 unit) tablet furosemide 20 mg tablet 0 mg PO 04/26/20 06/13/23 lisinopril 40 mg tablet 40 mg PO DAILY 04/26/20 06/13/23 chlorthalidone 25 mg tablet 25 mg PO QAM 05/10/20 06/13/23 blood pressure test kit-large #1 ea 07/04/20 06/13/23 ferrous sulfate 325 mg (65 mg 325 mg PO BID 08/25/20 06/13/23 iron) tablet calcitriol 0.25 mcg capsule 0.25 mcg PO 3XW 12/16/20 06/13/23 acetaminophen 500 mg tablet 1,000 mg PO Q8H PRN 04/13/21 06/13/23 allopurinol 100 mg tablet 200 mg PO DAILY 10/03/21 06/13/23 aspirin 81 mg tablet,delayed 81 mg PO DAILY 10/05/21 06/13/23 release (Adult Low Dose Aspirin) amlodipine 5 mg tablet 5 mg PO DAILY 11/02/21 06/13/23 acetaminophen 325 mg capsule 325 mg PO QID PRN 11/23/21 06/13/23 ascorbic acid (vitamin C) 500 mg 500 mg PO BID 11/23/21 06/13/23 tablet ciclopirox 0.77 % topical cream 1 appl topical BID 11/23/21 06/13/23 lidocaine 5 % topical ointment 1 appl topical BID 11/23/21 06/13/23 loperamide 2 mg capsule 2 mg PO QID PRN 11/23/21 06/13/23 (Anti-Diarrheal (loperamide)) loperamide 2 mg tablet mg PO 06/13/23 06/13/23 (Anti-Diarrheal (loperamide)) Previous Rx's ?Medication ?Instructions ?Recorded prednisone 20 mg tablet 40 mg (2 x 20 mg) PO DAILY #10 tabs 10/15/23 Allergies Allergy/AdvReac Type Severity Reaction Status Date / Time No Known Allergies Allergy Verified 10/15/23 16:46 Review of Systems Review of Systems: Yes all other systems are reviewed and are negative [facility] Past Medical History Medical History PAD (peripheral artery disease) Helicobacter pylori gastritis Aortic regurgitation Anemia DVT (deep venous thrombosis) Hypertension Hypertension DVT (deep venous thrombosis) Acid reflux Surgical History History of bilateral knee replacement Social History Social History Household Members: None Housing: House Do 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 Oriented X3. No acute distress. ENT: Pharynx normal. Oral Mucosa moist Neck: Normal inspection. Neck supple. CVS: Normal heart rate and rhythm. Pulses normal. Respiratory: No respiratory distress. Equal air entry bilateral, Abdomen: Soft and nontender. Bowel sounds are present, Skin: Skin warm and dry. Normal skin color. Normal skin turgor. Extremities: Left shoulder diffuse swelling with effusion and tenderness no signs of infection or warmth Neuro: Oriented X 3. Medications Administered Discontinued Medications Generic Name Dose Route Start Last Admin Trade Name Gisell PRN Reason Stop Dose Admin Prednisone 40 mg 10/15/23 19:59 10/15/23 20:06 Prednisone 20 Mg Tablet PO 10/15/23 20:00 40 mg ONCE ONE Administration Medical Decision Making Lab Data 10/15/23 16:57 10/15/23 16:55 Labs: Lab Results 10/15/23 10/15/23 Range/Units 16:55 16:57 WBC 13.8 H (4.8-10.8) X10*3/uL RBC 3.10 L (4.20-5.50) X10*6/uL Hgb 9.7 L (12.0-16.0) g/dl Hct 28.4 L (37.0-47.0) % MCV 91.6 (80.0-98.0) fL MCH 31.3 (27.0-33.0) pg MCHC 34.2 (31.0-35.0) g/dl RDW 15.5 (11.0-16.0) % Plt Count 227 (160-400) X10*3/uL MPV 12.5 H (9.4-12.3) fL Immature Gran % (Auto) Cancelled Neut % (Auto) Cancelled Lymph % (Auto) Cancelled Millard % (Auto) Cancelled Eos % (Auto) Cancelled Baso % (Auto) Cancelled Lymph # (Auto) Cancelled Millard # (Auto) Cancelled Eos # (Auto) Cancelled Baso # (Auto) Cancelled Abs Immat Gran (auto) Cancelled Absolute Neuts (auto) Cancelled Absolute Nucleated RBC 0.000 (0.0-0.012) X10*3/uL Nucleated RBC % (auto) 0.0 (0.0-0.2) /100WBC Neutrophils % (Manual) 76 H (45-73) % Band Neutrophils % 0 L (3-5) % Lymphocytes % (Manual) 17 L (20-40) % Monocytes % (Manual) 5 (2-11) % Eosinophils % (Manual) 2 (0-4) % Abs Neuts (Manual) 10.5 H (2.0-8.3) X10*3/uL Lymphocytes # (Manual) 2.3 (1.2-4.9) X10*3/uL Monocytes # (Manual) 0.7 (0.1-1.2) X10*3/uL Eosinophils # (Manual) 0.3 (0.0-0.4) X10*3/uL Platelet Estimate NORMAL (NORMAL) Plt Morphology Comment NORMAL RBC Morphology NOTED [place] Cells 1+ (0-2) /OIF Schistocytes 1+ (0-2) /OIF Smear Tech's Comments MANUAL DIFF ESR 96 H (0-20) MM/HR Sodium 140 (135-145) mmol/L Potassium 3.8 (3.3-5.1) mmol/L Chloride 106 (96-108) mmol/L Carbon Dioxide 24 (22-29) mmol/L Anion Gap 14 (12-20) BUN 35 H (9-16) mg/dL Creatinine 2.04 H (0.5-1.4) mg/dL Estim Creat Clear Calc 19.6 Estimated GFR 23 Random Glucose 82 (60-115) mg/dL Uric Acid 4.8 (2.4-5.7) mg/dL Calcium 9.6 (8.4-10.2) mg/dL Total Bilirubin 1.0 (0.0-1.0) mg/dL AST 23 (5-31) U/L ALT 15 (0-31) U/L Alkaline Phosphatase 106 (39-117) U/L C-Reactive Protein 16.35 H (< or = 0.50) mg/dL Total Protein 7.8 (6.5-8.0) g/dL Albumin 3.4 L (3.5-5.0) g/dL Discharge Plan Discharge Clinical Impression: Gout Patient Disposition: Home, Self-Care Instructions: Gout (ED) Additional Instructions: Likely 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 Continue your medications Prednisone 40 mg daily for 5 days Follow-up with orthopedics Wear sling for support Prescriptions: New prednisone 20 mg tablet 40 mg PO DAILY Qty: 10 0RF No Action aspirin [Adult Low Dose Aspirin] 81 mg tablet,delayed release (DR/EC) 81 mg PO DAILY cyanocobalamin (vitamin B-12) 1,000 mcg tablet 1 tab PO QAM omeprazole 20 mg capsule,delayed release(DR/EC) 1 cap PO QAM lisinopril 40 mg tablet 40 mg PO DAILY furosemide 20 mg tablet 0 mg PO cholecalciferol (vitamin D3) 25 mcg (1,000 unit) tablet 25 mcg PO DAILY chlorthalidone 25 mg tablet 25 mg PO QAM (DME) blood pressure test kit-large Kit See Rx Instructions .ROUTE DAILY Qty: 1 Rx Instructions: As directed ferrous sulfate 325 mg (65 mg iron) tablet 325 mg PO BID calcitriol 0.25 mcg capsule 0.25 mcg PO 3XW Rx Instructions: administer after dialysis on dialysis days allopurinol 100 mg tablet 200 mg PO DAILY acetaminophen 325 mg capsule 325 mg PO QID PRN ciclopirox 0.77 % cream 1 appl topical BID lidocaine 5 % ointment 1 appl topical BID loperamide [Anti-Diarrheal (loperamide)] 2 mg capsule 2 mg PO QID PRN ascorbic acid (vitamin C) 500 mg tablet 500 mg PO BID acetaminophen 500 mg tablet 1,000 mg PO Q8H PRN amlodipine 5 mg tablet 5 mg PO DAILY loperamide [Anti-Diarrheal (loperamide)] 2 mg tablet PO Referrals: Louis Dickens MD [Physician] - 2 weeks Interventions: ED Discharge Assessment Last Done: 10/15/23 20:53 Discharge Date/Time: 10/15/23 20:57 Print Language: Haitian
[2023-10-15] MEDS: predniSONE 20 MG TABLET 40 MG PO (20:06)
[2023-10-15 20:24] LABS: C Reactive Protein 16.35 mg/dL (< or = 0.50); Uric Acid 4.8 mg/dL (2.4-5.7)
[2023-10-15 20:45] VITALS: BP 130/61; PULSE 63; RESP 16; TEMP 36.4; O2SAT 96
[2023-10-15 20:52] LABS: Erythrocyte Sedimentation Rate 96 MM/HR (0-20)
[2023-10-15 20:53] VITALS: BP 130/61; PULSE 63; RESP 16; TEMP 36.4; O2SAT 96
== END 2023-10-15 20:57 | disposition home or self-care (01) ==
PROVIDERS: Physician Assistant Medical; Emergency Provider Internal Medicine; PCP Family Medicine
DX: M10.9 Gout, unspecified (principal); I10 Essential (primary) hypertension; Z86.718 Personal history of other venous thrombosis and embolism
CPT/HCPCS: 36415; 73030; 80053; 84550; 85007; 85027; 85652; 86140; 99283

== ENCOUNTER 2023-10-29 13:42 | Outpatient (REF) | payer OTHER, SELFPAY ==
[2023-10-29 16:02] LABS: MANUAL DIFF FLAG NO
[2023-10-29 16:23] LABS: Basophils Percent Auto 0.2 % (0-2); Eosinophils Absolute Auto 0.2 X10*3/uL (0.0-0.4); Eosinophils Percent Auto 1.2 % (0-4); Hematocrit 28.7 % (37.0-47.0); Hemoglobin 9.7 g/dl (12.0-16.0); Imm Gran Abs Auto 0.06 X10*3/uL (0.00-0.03); Imm Gran Pct Auto 0.5 % (0.0-0.4); Lymphocytes Absolute Auto 2.8 X10*3/uL (1.2-4.9); Lymphocytes Percent Auto 23.1 % (20-40); Mean Corpuscular HGB Conc 33.8 g/dl (31.0-35.0); Mean Corpuscular Hemoglobin 31.2 pg (27.0-33.0); Mean Corpuscular Volume 92.3 fL (80.0-98.0); Mean Platelet Volume 13.7 fL (9.4-12.3); Monocytes Absolute Auto 1.1 X10*3/uL (0.1-1.2); Monocytes Percent Auto 8.8 % (2-11); Neutrophils Absolute Auto 8.2 x10*3/uL (2.0-8.3); Neutrophils Percent Auto 66.2 % (45-73); Platelet Count 236 X10*3/uL (160-400); Red Blood Count 3.11 X10*6/uL (4.20-5.50); Red Cell Distribution Width 16.3 % (11.0-16.0); White Blood Count 12.3 X10*3/uL (4.8-10.8)
[2023-10-29 16:48] LABS: Iron 73 mcg/dL (30-160); Percent Iron Saturation 34 % (15-50); Total Iron Binding Capacity 217 mcg/dL (228-428); Unsaturated Iron Binding 144 ug/dL
[2023-10-29 17:02] LABS: Ferritin 747 ng/mL (10-250)
[2023-10-29 17:09] LABS: Erythrocyte Sedimentation Rate 85 MM/HR (0-20); Folate 8.8 ng/mL (> or = 4.0); Vitamin B12 1501 pg/mL (200-900)
== END 2023-10-29 13:43 | disposition home or self-care (01) ==
LOC: HO.HHCL 13:42
PROVIDERS: Visit Provider Family Medicine
DX: D64.9 Anemia, unspecified (principal); M25.511 Pain in right shoulder; M25.512 Pain in left shoulder; G89.29 Other chronic pain
CPT/HCPCS: 36415; 82607; 82728; 82746; 83540; 85025; 85652

== ENCOUNTER 2023-11-15 12:59 | Outpatient (REF) | payer OTHER, SELFPAY ==
--- NOTE | ~2023-11-15 | CT_ITS ---
EXAMINATION: CT ABDOMEN AND PELVIS WITHOUT CONTRAST CLINICAL INFORMATION: Weight loss, diarrhea and worsening renal function. COMPARISON: CT abdomen and pelvis 01/22/2011. TECHNIQUE: Multidetector volumetric imaging was performed from the superior aspect of the liver through the pubic symphysis. Sagittal and coronal reformatted images were obtained on the technologist's workstation. This CT examination was performed using dose optimization techniques as appropriate, variously including the following: *Automated exposure control. *Adjustment of mA and/or kV according to patient size (this includes techniques or standardized protocols for targeted exams where dose is matched to indication/reason for exam; i.e. extremities or head). *Use of iterative reconstruction technique. DLP: 397 mGy-cm FINDINGS: LUNG BASES: The visualized lung bases are unremarkable. LIVER, GALLBLADDER, AND BILIARY TREE: The liver is normal in greatest length but I suspect volume is increased as the left lobe is quite large. No focal hepatic lesion or biliary ductal dilatation is present. Surgical clips are present in the gallbladder fossa. PANCREAS: Unremarkable. SPLEEN: Spleen is absent. A tiny 2.3 cm remnant spleen is probably present (3:15). ADRENAL GLANDS: Unremarkable. KIDNEYS AND URETERS: The kidneys are normal in size, shape, and attenuation. There is a tiny punctate 2 mm nonobstructing left upper pole calculus (3:22). No hydronephrosis, hydroureter, or additional calculi seen. No perinephric stranding. BLADDER: Unremarkable. GASTROINTESTINAL TRACT: The small and large bowel are unremarkable aside from colonic diverticulosis without diverticulitis most prominent in the sigmoid. The appendix is not seen but there is no evidence of appendicitis. ABDOMINAL WALL: No significant hernia is appreciated. LYMPH NODES: No retroperitoneal lymphadenopathy. VASCULAR: Calcific atherosclerotic changes are present in the aorta and iliofemoral vessels. There is no evidence of an abdominal aortic aneurysm. PELVIC VISCERA: The patient appears to have undergone hysterectomy since the prior study as the uterus is not seen on this exam. An abnormal adnexal mass is not detected. No free intraperitoneal fluid is present. OSSEOUS STRUCTURES: Degenerative changes are seen throughout the spine along with scoliosis. There is grade 1 anterolisthesis of L5 upon S1. CT/CT abdomen pelvis wo IV con IMPRESSION: 1. An occult cause for the patient's weight loss, diarrhea and worsening renal function has not been found. 2. Cholecystectomy. 3. Splenectomy with tiny remnant spleen. 4. Nonobstructing 2 mm left upper pole renal calculus. 5. Colonic diverticulosis without diverticulitis. 6. Degenerative changes in the spine with grade 1 anterolisthesis of L5 upon S1. Fleischner guidelines were followed.
[2023-11-15] MEDS: Barium Sulfate Oral (Berry) 450 ML ORAL.SUSP 900 ML PO (15:55)
== END 2023-11-15 13:00 | disposition home or self-care (01) ==
LOC: HO.CT 12:59
PROVIDERS: PCP Family Medicine; Visit Provider Family Medicine
DX: K52.9 Noninfective gastroenteritis and colitis, unspecified (principal); N18.4 Chronic kidney disease, stage 4 (severe); R63.4 Abnormal weight loss
CPT/HCPCS: 74176

== ENCOUNTER 2024-02-18 10:43 | Outpatient (AMB) | payer OTHER, SELFPAY ==
--- NOTE | 2024-02-18 11:02 | A.OFFVIS_ITS ---
Vital Signs 02/18/24 11:08 Height 5 ft 5 in Weight 157 lb 6.561 oz BMI 26.2 BP 122/60 Blood Pressure Location Lt brachial Position Sitting Respiration 16 Pulse 63 Pulse Source Pulse Oximeter Pulse Oximetry (%) 96 Oxygen Delivery Method Room Air Intake Visit Reasons: Gout Intake Note: Patient presents for Gout. Pretzel Twisting Machine Operator Required: Yes Pretzel Twisting Machine Operator Language: Mathematical Engineer Services: Pretzel Twisting Machine Operator Offered & Declined Pretzel Twisting Machine Operator Name: Unruly Gramajo Information Interpreted: non-clinical & clinical Lambskin Trimmer: Lambskin Trimmer Present Accompanied by: Son Allergies No Known Allergies Allergy (Verified 02/18/24 11:07) Medication List - Last Reconciled 02/18/24 by Benji Membreno MD acetaminophen 325 mg PO QID PRN acetaminophen 1,000 mg PO Q8H PRN amlodipine 5 mg PO DAILY ascorbic acid (vitamin C) 500 mg PO BID aspirin (Adult Low Dose Aspirin) 81 mg PO DAILY blood pressure test kit-large As directed calcitriol 0.25 mcg PO 3XW chlorthalidone 25 mg PO QAM cholecalciferol (vitamin D3) 25 mcg PO DAILY ciclopirox 0.77% 1 appl topical BID cyanocobalamin (vitamin B-12) 1 tab PO QAM ferrous sulfate 325 mg PO BID furosemide 0 mg PO lidocaine 5% 1 appl topical BID lisinopril 40 mg PO DAILY loperamide (Anti-Diarrheal (loperamide)) 2 mg PO QID PRN loperamide (Anti-Diarrheal (loperamide)) mg PO omeprazole 1 cap PO QAM prednisone 40 mg (2 x 20 mg) PO DAILY HPI Comments Details: This is an 88-year-old female who presents for evaluation of gout. Patient and her son are poor historians. Apparently patient had history of gout in the past. She states that she was taken off of allopurinol a few years ago due to progression of her CKD. Back in 10/31/2023 she presented to the hospital with acute onset of left shoulder pain and swelling. On exam patient had left shoulder swelling. Gout was suspected and she was discharged on prednisone with resolution. She has not had any similar attacks since discharge. 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) Alcohol intake: never Patient Tobacco Use Status: Never used Tobacco service: No Current occupational status: disabled Review of Systems [facility] [place] arthralgias and Denies joint swelling Physical Exam Vital Signs: Last Vital Signs Pulse 63 02/18/24 11:08 Resp 16 02/18/24 11:08 BP 122/60 02/18/24 11:08 Pulse Ox 96 02/18/24 11:08 Oxygen Delivery Method Room Air 02/18/24 11:08 BMI result Body Mass Index 26.2 Const Other: Chronically sick-appearing General: cooperative, healthy appearing and no acute distress Nutritional Appearance: cachectic Orientation/consciousness: patient oriented x3 Limitations: ambulation with walker HEENT Head: Yes normocephalic and Yes atraumatic Mouth: moist mucous membranes Resp Effort & Inspection: normal respiratory effort Skin General skin exam: no rashes or lesions noted Neuro General: patient oriented x3 Extrem Other: Mild osteoarthritic changes of both hands with no active synovitis Mildly limited shoulder abduction bilaterally Bilateral shoulder stiffness No shoulder swelling bilaterally today Assessment & Plan Assessment & Plan (1) Gout: Code(s): M10.9 - Gout, unspecified Category: Medical Qualifiers: Gout site: multiple sites Gout etiology: due to renal impairment Chronicity: chronic Presence of tophus: without tophus Qualified Code(s): M1A.39X0 - Chronic gout due to renal impairment, multiple sites, without tophus (tophi) Plan: This is an 88-year-old female with history of CKD and gout who presents for follow-up. Patient has history of gout for years, per patient she was taken off her allopurinol a few years ago due to progression of CKD. In 10/2023 patient presented to the hospital with acute onset of left shoulder swelling. Treated with prednisone. No similar attacks since. DDX includes gouty arthritis versus pseudogout or Stafford shoulder Check labs Follow-up in about 4 weeks Plan I spent 47 minutes reviewing patient's chart, evaluating patient, ordering diagnostic workup, counseling patient and documenting in the chart Orders: Orders Parathyroid Hormone Intact Today M11.20 - Other chondrocalcinosis, unspecified site Vitamin D 25-OH (D2 and D3) Today M11.20 - Other chondrocalcinosis, unspecified site Magnesium Today M11.20 - Other chondrocalcinosis, unspecified site Calcium, Ionized Today M11.20 - Other chondrocalcinosis, unspecified site Phosphorus Today M11.20 - Other chondrocalcinosis, unspecified site Comprehensive Met. Panel Today M11.20 - Other chondrocalcinosis, unspecified site Protein Electrophoresis, Serum Today M11.20 - Other chondrocalcinosis, unspecified site Uric Acid Today M10.9 - Gout, unspecified Coding Level of Care Code New Pt Level 4 (23311) Diagnoses Chronic gout due to renal impairment of multiple sites without tophus M1A.39X0 Gout site: multiple sites Gout etiology: due to renal impairment Chronicity: chronic Presence of tophus: without tophus
[2024-02-18 11:08] VITALS: BP 122/60; PULSE 63; RESP 16; O2SAT 96; BMI 26.2
== END 2024-02-18 11:49 | disposition home or self-care (01) ==
PROVIDERS: PCP Family Medicine; Visit Provider Student in an Organized Health Care Education/Training Program
DX: M1A.39X0 Chronic gout due to renal impairment, multiple sites, without tophus (tophi) (principal)
CPT/HCPCS: 99204

== ENCOUNTER → 2024-02-18 10:43 | Outpatient (BNVA) | payer OTHER, SELFPAY | PROVIDERS: PCP Family Medicine; Visit Provider Student in an Organized Health Care Education/Training Program | DX: M1A.39X0 Chronic gout due to renal impairment, multiple sites, without tophus (tophi) (principal) | CPT/HCPCS: 99202 ==

== ENCOUNTER 2024-02-22 09:24 | Outpatient (REF) | payer OTHER, SELFPAY ==
[2024-02-22 10:53] LABS: Alanine Aminotransferase 9 U/L (0-31); Albumin Level 3.6 g/dL (3.5-5.0); Alkaline Phosphatase 96 U/L (39-117); Anion Gap 9 (12-20); Aspartate Amino Transferase 18 U/L (5-31); Bilirubin Total 0.6 mg/dL (0.0-1.0); Blood Urea Nitrogen 30 mg/dL (9-16); Calcium 9.7 mg/dL (8.4-10.2); Carbon Dioxide 26 mmol/L (22-29); Chloride 110 mmol/L (96-108); Estimated Glomerular Filt Rate 31; Glucose Random 89 mg/dL (60-115); Magnesium 1.7 mg/dL (1.6-2.6); Phosphorus 2.8 mg/dL (2.7-4.5); Potassium 3.9 mmol/L (3.3-5.1); Sodium 141 mmol/L (135-145); Total Protein 7.5 g/dL (6.5-8.0)
[2024-02-22 11:04] LABS: Parathyroid Hormone Intact 115.3 pg/mL (8.7-77.1)
[2024-02-24 22:29] LABS: Prot Elec - Albumin 3.4 g/dL (3.8-4.8); Prot Elec - Alpha1 0.3 g/dL (0.2-0.3); Prot Elec - Alpha2 0.8 g/dL (0.5-0.9); Prot Elec - Beta 1 0.4 g/dL (0.4-0.6); Prot Elec - Beta 2 0.4 g/dL (0.2-0.5); Prot Elec - Gamma 1.8 g/dL (0.8-1.7); Prot Elec - Total Protein 7.1 g/dL (6.1-8.1)
[2024-02-25 12:59] LABS: Calcium, Ionized 5.4 mg/dL (4.7-5.5)
[2024-02-26 14:53] LABS: Vitamin D 25-OH, D2 <4 ng/mL; Vitamin D 25-OH, D3 53 ng/mL; Vitamin D 25-OH, Total 53 ng/mL (30-100)
== END 2024-02-22 09:25 | disposition home or self-care (01) ==
LOC: HO.LAB 09:24
PROVIDERS: PCP Student in an Organized Health Care Education/Training Program; Visit Provider Family Medicine
DX: M10.9 Gout, unspecified (principal); M11.20 Other chondrocalcinosis, unspecified site
CPT/HCPCS: 36415; 80053; 82306; 82330; 83735; 83970; 84100; 84165; 84550

== ENCOUNTER 2024-03-20 14:56 | Outpatient (AMB) | payer OTHER, SELFPAY ==
[2024-03-20 15:08] VITALS: BP 118/68; PULSE 51; O2SAT 99; BMI 25.5
--- NOTE | 2024-03-20 15:08 | MHC.OFFVIS ---
Vital Signs 03/20/24 15:08 Height 5 ft 5 in Weight 153 lb 3.54 oz BMI 25.5 BP 118/68 Blood Pressure Location Lt brachial Position Sitting Pulse 51 Pulse Source Pulse Oximeter Pulse Oximetry (%) 99 Oxygen Delivery Method Room Air Intake Visit Reasons: Gout/Cm Intake Note: Patient last seen by Doctor Benji Membreno on 02/18/24. Presents today for Gout follow up and test results. Accompanied by: Son Allergies No Known Allergies Allergy (Verified 03/20/24 15:11) Medication List - Last Reconciled 03/20/24 by Benji Membreno MD acetaminophen 325 mg PO QID PRN acetaminophen 1,000 mg PO Q8H PRN amlodipine 5 mg PO DAILY ascorbic acid (vitamin C) 500 mg PO BID aspirin (Adult Low Dose Aspirin) 81 mg PO DAILY blood pressure test kit-large As directed calcitriol 0.25 mcg PO 3XW chlorthalidone 25 mg PO QAM cholecalciferol (vitamin D3) 25 mcg PO DAILY ciclopirox 0.77% 1 appl topical BID cyanocobalamin (vitamin B-12) 1 tab PO QAM ferrous sulfate 325 mg PO BID furosemide 0 mg PO lidocaine 5% 1 appl topical BID lisinopril 40 mg PO DAILY loperamide (Anti-Diarrheal (loperamide)) 2 mg PO QID PRN loperamide (Anti-Diarrheal (loperamide)) mg PO omeprazole 1 cap PO QAM HPI Comments Details: Patient returns for follow-up after completion of her diagnostic workup. Continues to feel about the same. Has not had any recurrent flare-ups of joint pain and swelling Initial history: This is an 88-year-old female who presents for evaluation of gout. Patient and her son are poor historians. Apparently patient had history of gout in the past. She states that she was taken off of allopurinol a few years ago due to progression of her CKD. Back in 10/31/2023 she presented to the hospital with acute onset of left shoulder pain and swelling. On exam patient had left shoulder swelling. Gout was suspected and she was discharged on prednisone with resolution. She has not had any similar attacks since discharge. [facility] [place] Medical History PAD (peripheral artery disease) Helicobacter pylori gastritis Aortic regurgitation Anemia DVT (deep venous thrombosis) Hypertension Hypertension DVT (deep venous thrombosis) Acid reflux Surgical History History of bilateral knee replacement Social History Household Members: None Housing: House Do you presently have visiting nurse or other home services: Yes ([employer]) Alcohol intake: never Patient Tobacco Use Status: Never used Tobacco service: No Current occupational status: disabled Review of Systems [facility] Reports arthralgias and Denies joint swelling Physical Exam Vital Signs: Last Vital Signs Pulse 51 03/20/24 15:08 BP 118/68 03/20/24 15:08 Pulse Ox 99 03/20/24 15:08 Oxygen Delivery Method Room Air 03/20/24 15:08 BMI result Body Mass Index 25.5 Const Other: Chronically sick-appearing General: cooperative, healthy appearing and no acute distress Nutritional Appearance: cachectic Orientation/consciousness: patient oriented x3 Limitations: ambulation with walker HEENT Head: Yes normocephalic and Yes atraumatic Mouth: moist mucous membranes Resp Effort & Inspection: normal respiratory effort Skin General skin exam: no rashes or lesions noted Neuro General: patient oriented x3 Extrem Other: Mild osteoarthritic changes of both hands with no active synovitis Mildly limited shoulder abduction bilaterally Bilateral shoulder stiffness No shoulder swelling bilaterally today No tophi noted Assessment & Plan Assessment & Plan (1) Gout: Code(s): M10.9 - Gout, unspecified Category: Medical Qualifiers: Chronicity: chronic Gout etiology: due to renal impairment Gout site: multiple sites Presence of tophus: without tophus Qualified Code(s): M1A.39X0 - Chronic gout due to renal impairment, multiple sites, without tophus (tophi) Plan: This is an 88-year-old female with history of CKD and gout who presents for follow-up. Patient has history of gout for years, per patient she was taken off her allopurinol a few years ago due to progression of CKD. In 10/2023 patient presented to the hospital with acute onset of left shoulder swelling. Treated with prednisone. No similar attacks since. Her blood work is unremarkable uric acid level 4 mg/dL. She has not had any recurrence. DDX includes gouty arthritis versus pseudogout or [place] shoulder. At this time no certain diagnosis can be made. Discussed with patient and her son. If she develops recurrent attacks to call the office and we will try to bring her in for evaluation, if there is a large effusion, arthrocentesis can be attempted and fluid analysis sent to lab for diagnosis. Fortunately patient has not had any current attacks since 10/2023. Follow-up as needed Plan I spent 17 minutes reviewing patient's chart, evaluating patient, counseling patient and documenting in the chart Coding Level of Care Code Est Pt Level 3 (02286) Diagnoses Chronic gout due to renal impairment of multiple sites without tophus M1A.39X0 Chronicity: chronic Gout etiology: due to renal impairment Gout site: multiple sites Presence of tophus: without tophus
== END 2024-03-20 15:39 | disposition home or self-care (01) ==
PROVIDERS: PCP Student in an Organized Health Care Education/Training Program; Visit Provider Student in an Organized Health Care Education/Training Program
DX: M1A.39X0 Chronic gout due to renal impairment, multiple sites, without tophus (tophi) (principal)
CPT/HCPCS: 99213

== ENCOUNTER → 2024-03-20 14:56 | Outpatient (BNVA) | payer OTHER, SELFPAY | PROVIDERS: PCP Student in an Organized Health Care Education/Training Program; Visit Provider Student in an Organized Health Care Education/Training Program | DX: M1A.39X0 Chronic gout due to renal impairment, multiple sites, without tophus (tophi) (principal) | CPT/HCPCS: 99212 ==

== ENCOUNTER 2025-01-20 10:16 | Emergency (ER) | payer OTHER, SELFPAY ==
--- OUTSIDE RECORDS SUMMARY | 2024-01-03 09:15 | XMS_ITS ---
Author Organization [facility] Address [address] [place] [phone] Care Team Providers Care Waste Treatment Operator Name Role Phone Britney Lockhart Primary Care Provider Unavailabl Eran Cochran Unavailable [phone] Encounters Encounter Location Date Provider Diagnosis [address] [address] 01/03/2024 Eran Salazar Plan Of Treatment Next Appt Details Provider Name:Eran Salazar , 02/12/2025 11:15:00 AM, [address] [place] [address], [phone], Progress Notes * Abby PURVISDOB:[birth year] (89 yo F)Acc No.[id number]:01/03/2024 Progress Note Patient: Abby POPE Provider: Portia Salazar DPM :1935 A ge:88 Y S ex:Female Date:01/03/2024 Address:[address] [place] [phone] Pcp:Britney Lockhart Subjective: * Chief Complaints: * [...] 01/03/2024 Generated for Gelacio young/Hunter/Artis on: 0 01/20/2025 01:48 PM EDT
--- OUTSIDE RECORDS SUMMARY | 2024-03-06 07:00 | XMS_ITS ---
Author Organization [facility] Address [address] [place] [address] Care Team Providers Care Platen Press Operator Name Role Phone Britney Lockhart Primary Care Provider Unavailabl Eran Cochran Unavailable [phone] Encounters Encounter Location Date Provider Diagnosis [address] [address] 03/06/2024 Eran Salazar Plan Of Treatment Next Appt Details Provider Name:Eran Salazar , 02/12/2025 11:15:00 AM, [address] [place] [address], [phone], Progress Notes * Abby PURVISDOB:[birth year] (89 yo F)Acc No.[id number]:03/06/2024 Progress Note Patient: Abby POPE Provider: Portia Salazar DPM :1935 A ge:88 Y S ex:Female Date:03/06/2024 Address:[address] [place] [phone] Pcp:Britney Lockhart Subjective: * Chief Complaints: * [...] 1 Generated for Gelacio young/Hunter/Artis on: 0 01/20/2025 01:48 PM EDT
--- NOTE | 2025-01-20 | ECG_ITS ---
Test Reason : CP Blood Pressure : */* mmHG Vent. Rate : 68 BPM Atrial Rate : 68 BPM P-R Int : 182 ms QRS Dur : 86 ms QT Int : 392 ms P-R-T Axes : 24 -7 81 degrees QTcB Int : 416 ms Normal sinus rhythm with sinus arrhythmia Septal infarct , age undetermined Abnormal ECG When compared with ECG of 29-Oct-2011 13:25, Vent. rate has increased Referred By: Generic ED Physician Electronically Signed By: ISMA BARRERA MD
--- NOTE | ~2025-01-20 | XR_ITS ---
EXAMINATION: XR CHEST 1 VIEW HISTORY: SOB, weakness COMPARISON: Comparison is made with the prior examination dated 03/18/2020. FINDINGS: A single AP portable view of the chest performed at 11:25 AM is submitted. The lungs are expanded and clear. There is no pleural effusion, pneumothorax, or pulmonary vascular congestion. The heart is normal in size. The aorta is calcified. There is degenerative disc disease of the spine. There are severe degenerative changes involving both shoulders. XR/XR chest 1V IMPRESSION: No acute cardiopulmonary abnormality. Electronically signed by: Jatinder Cho MD 01/20/2025 11:41 AM EDT
--- NOTE | ~2025-01-20 | CT_ITS ---
EXAMINATION: CT ANGIOGRAM CHEST CLINICAL INFORMATION: Chest pain COMPARISON: Same x-ray TECHNIQUE: Multiple axial images were obtained through the chest after the administration of 65 mL of Omnipaque 350 intravenous contrast. Extensive vascular post-processing including two-dimensional and three-dimensional reformatted images were created and reviewed on an independent workstation. This CT examination was performed using dose optimization techniques as appropriate, variously including the following: *Automated exposure control *Adjustment of mA and/or kV according to patient size (this includes techniques or standardized protocols for targeted exams where dose is matched to indication/reason for exam; i.e. extremities or head) *Use of iterative reconstruction technique DLP: 335 mGY*cm FINDINGS: QUALITY OF STUDY/CONTRAST BOLUS: Adequate PULMONARY ARTERIES: The main pulmonary artery diameter is 35 mm which is 1.3 times larger than the adjacent aorta. No filling defects are evident in the pulmonary arteries. THORACIC AORTA: There are atherosclerotic ossifications without aneurysm. LUNGS AND PLEURA: There is mild enlargement of pulmonary vascularity. There is focal area secular bronchiectasis in the right perihilar lung. Axial image 72/141: There is a 3 x 7 mm solid pulmonary nodule contacting the major fissure. There is linear scarring in the anterior left upper lobe. There is minimal basilar atelectasis and/or scarring. There is no pleural effusion. MEDIASTINUM: The heart size is enlarged. CORONARY ARTERY CALCIFICATION: Present CHEST WALL/AXILLA: No axillary or internal mammary lymphadenopathy. UPPER ABDOMEN: Gallbladder surgically absent. BONES: There are severe degenerative changes in both shoulder joints and rotator cuff arthropathy. There is moderate to severe degenerative changes in the thoracic spine. CT/CT angio chest PE protocol IMPRESSION: No evidence of pulmonary embolus. Cardiomegaly and evidence of pulmonary vascular congestion. Enlargement of main pulmonary artery raises question of underlying pulmonary hypertension. 3 x 7 mm solid pulmonary nodule in the right upper lobe. No further follow-up is indicated per Fleischner Society recommendations, unless the patient falls into a high risk category, in which case a 12 month follow-up CT chest without contrast is optional. High risk patients includes those with a history of smoking, first-degree relative with lung cancer, or exposure to uranium, radon, or asbestos. Bilateral rotator cuff arthropathy consistent with chronic bilateral full-thickness rotator cuff tears. Fleischner guidelines were followed. Electronically signed by: Alonso Peter MD 01/20/2025 02:59 PM EDT RP
[2025-01-20 10:19] VITALS: BP 144/92; BP 176/79; PULSE 70; PULSE 76; RESP 18; TEMP 37.6; O2SAT 96; BMI 27.1
[2025-01-20 10:46] VITALS: BP 175/80; PULSE 73; RESP 22; O2SAT 94
[2025-01-20 10:50] LABS: Hematocrit 31.6 % (37.0-47.0); Hemoglobin 10.4 g/dl (12.0-16.0); Imm Gran Abs Auto 0.08 X10*3/uL (0.00-0.03); Imm Gran Pct Auto 0.6 % (0.0-0.4); Lymphocytes Absolute Auto 1.2 X10*3/uL (1.2-4.9); MANUAL DIFF FLAG SCAN; Mean Corpuscular HGB Conc 32.9 g/dl (31.0-35.0); Mean Corpuscular Hemoglobin 29.5 pg (27.0-33.0); Mean Corpuscular Volume 89.5 fL (80.0-98.0); NRBC Abs Auto 0.000 X10*3/uL (0.0-0.012); NRBC Pct Auto 0.0 /100WBC (0.0-0.2); Platelet Count 310 X10*3/uL (160-400); Red Blood Count 3.53 X10*6/uL (4.20-5.50); SCAN SMEAR FLAG 1; White Blood Count 13.1 X10*3/uL (4.8-10.8)
[2025-01-20 10:59] LABS: INTERNATIONAL NORM RATIO 1.3 (0.9-1.1); Prothrombin Time 15.1 SEC (10.9-12.4)
[2025-01-20 11:01] LABS: Alanine Aminotransferase < 6 U/L (0-31); Albumin Level 3.9 g/dL (3.5-5.0); Alkaline Phosphatase 124 U/L (39-117); Anion Gap 16 (12-20); Aspartate Amino Transferase 20 U/L (5-31); Blood Urea Nitrogen 27 mg/dL (9-16); Calcium 9.8 mg/dL (8.4-10.2); Carbon Dioxide 26 mmol/L (22-29); Chloride 100 mmol/L (96-108); Creatinine Clr Calc Pharmacy 25.4; Estimated Glomerular Filt Rate 32; Magnesium 2.2 mg/dL (1.6-2.6); Potassium 4.2 mmol/L (3.3-5.1); Sodium 138 mmol/L (135-145); Total Protein 9.0 g/dL (6.5-8.0)
[2025-01-20 11:02] LABS: Partial Thromboplastin Time 27.6 SEC (26.7-34.1)
[2025-01-20 11:04] LABS: Troponin-I High Sensitivity 13.5 ng/L (<3.5-17.0)
[2025-01-20 11:05] LABS: B Type Natriuretic Peptide 205 pg/mL (<100)
--- NOTE | 2025-01-20 11:12 | ED_ITS ---
HPI - Chest Pain General Chief Complaint: Chest Pain Stated Complaint: CP X1DAY Time Seen by Provider: 01/20/25 11:10 Source: patient, family (patient's son) and EMS Mode of arrival: EMS Limitations: no limitations History of Present Illness ED Provider: Lynne Cruz PA-C HPI narrative: Patient is an 89 year-old assigned female at with a history of HTN, osteoarthritis s/p left knee arthroplasty, chronic kidney disease, anemia, DVT, aortic regurgitation, H pylori gastritis, PAD, Eliquis use, presenting to the emergency department with chest pain and left shoulder pain with associated nausea, dizziness, and lightheadedness. Patient reports the chest pain started last night and woke her up from sleeping. Patient states the pain comes and goes. Patient states she is on Eliquis and compliant with her medications. Patient denies any fevers, chills, vision changes, cough or difficulty breathing, abdominal pain, changes to urination or bowel movements, or any other symptoms. Patient denies recent illness. Related Data Home Medications ?Medication ?Instructions ?Recorded ?Confirmed cyanocobalamin (vitamin B-12) 1 tab PO QAM 03/17/20 1,000 mcg tablet omeprazole 20 mg capsule,delayed 1 cap PO QAM 03/17/20 06/13/23 release cholecalciferol (vitamin D3) 25 25 mcg PO DAILY 06/13/23 mcg (1,000 unit) tablet furosemide 20 mg tablet 0 mg PO 04/26/20 06/13/23 lisinopril 40 mg tablet 40 mg PO DAILY 04/26/2006/05 chlorthalidone 25 mg tablet 25 mg PO QAM 05/10/2006/05 blood pressure test kit-large #1 ea 07/04/20 06/13/23 ferrous sulfate 325 mg (65 mg 325 mg PO BID 08/25/20 0 06/13/23 iron) tablet calcitriol 0.25 mcg capsule 0.25 mcg PO 3XW 12/16/20 0 06/13/23 acetaminophen 500 mg tablet 1,000 mg PO Q8H PRN 06/13/23 aspirin 81 mg tablet,delayed 81 mg PO DAILY 10/05/21 0 06/13/23 release (Adult Low Dose Aspirin) amlodipine 5 mg tablet 5 mg PO DAILY 11/02/2106/13 acetaminophen 325 mg capsule 325 mg PO QID PRN 2 06/13/23 ascorbic acid (vitamin C) 500 mg 500 mg PO BID 2 06/13/23 tablet ciclopirox 0.77 % topical cream 1 appl topical BID 06/13/23 lidocaine 5 % topical ointment 1 appl topical BID 11/1006/13/23 loperamide 2 mg capsule 2 mg PO QID PRN 11/23/2106/05 (Anti-Diarrheal (loperamide)) loperamide 2 mg tablet mg PO 06/13/23 06/13/23 (Anti-Diarrheal (loperamide)) Allergies Allergy/AdvReac Type Severity Reaction Status Date / Time No Known Allergies Allergy Verified 01/20/25 10:20 Review of Systems 2 Constitutional: Constitutional: Reports as per HPI Eyes: Eyes: Reports as per HPI ENT: Reports as per HPI Cardiovascular: Cardiovascular: Reports as per HPI Respiratory: Respiratory: Reports as per HPI Gastrointestinal: Gastrointestinal: Reports as per HPI Genitourinary: Genitourinary: Reports as per HPI Musculoskeletal: Musculoskeletal: Reports as per HPI Integumentary/Breasts: Skin/Breast: Reports as per HPI Neurologic: Reports as per HPI Psychiatric: Psychiatric: Reports as per HPI Endocrine: Endocrine: Reports as per HPI Hematologic/Lymphatic: Hematologic/Lymphatic: Reports as per HPI Allergic/Immunologic: Allergic/Immunologic: Reports as per HPI [facility] Past Medical History Attestation statement: The following information was validated with the patient. (all information validated with the patient's son) Source: old records reviewed, obtained from family (patient's son provided additional history and confirmed the history provided by the patient.) and nursing notes reviewed Medical History PAD (peripheral artery disease) Helicobacter pylori gastritis Aortic regurgitation Anemia DVT (deep venous thrombosis) Hypertension Hypertension DVT (deep venous thrombosis) Acid reflux Surgical History History of bilateral knee replacement Social History Social History Household Members: None Housing: House Do you presently have visiting nurse or other home services: Yes ([employer]) Alcohol intake: never Patient Tobacco Use Status: Never used Tobacco service: No Current occupational status: disabled Physical Exam 2 Vital Signs: Vital Signs: Last Vital Signs Temp 98.8 F 01/20/25 15:28 Pulse 78 01/20/25 15:28 Resp 16 01/20/25 15:28 BP 128/85 01/20/25 15:28 Pulse Ox 100 01/20/25 15:28 O2 Del Method Room Air 01/20/25 15:28 BMI result Body Mass Index 27.1 Const: General: cooperative, no acute distress, alert and awake Nutritional Appearance: well nourished Orientation/consciousness: patient oriented x3 HEENT: Head: Yes normal to inspection and Yes atraumatic Ears: hearing grossly normal bilaterally and external ears normal General nose exam: Normal external nose present, no nasal discharge noted and no epistaxis Face and sinus: Yes normal facial exam, No abrasion and No laceration Mouth: Normal oral and palatal mucosa present, no drooling and no muffled voice Eyes: General: appearance normal, both eyes and all related structures P eriorbital: periorbital findings normal Eyelids: Yes eyelids normal C onjunctivae: conjunctivae normal Pupils: Equal, round and reactive pupils present EOM: EOMs intact bilaterally Neck: Neck: Yes normal visual inspection and Yes full ROM Resp: Effort & Inspection: normal respiratory effort and able to speak in complete sentences Neuro: General: patient oriented x3, moves all extremities and CN's II-XI intact bilaterally Cranial nerves: Yes Equal, round and reactive pupils present Cognition (Neuro): normal cognition Extrem: General: Yes normal to inspection, Yes full ROM and Yes capillary refill normal Psych: Appearance: grossly normal Mental Status: mental status grossly normal Affect: normal affect Attitude: cooperative Thought process: N ormal thought process present Thought content: Normal thought content present Insight: Good insight present (Psych) Medications Administered Discontinued Medications Generic Name Dose Route Start Last Admin Trade Name Freq PRN Reason Stop Dose Admin Iohexol 100 ml 01/20/25 14:10 01/20/25 14:11 Iohexol 350 Mg/Ml 100 Ml Infus..Btl IV 01/20/25 14:11 65 ml ONCE ONE Administration Morphine Sulfate 4 mg 01/20/25 11:57 01/20/25 12:10 Morphine Sulfate 4 Mg/Ml Cartridge IVPUSH 01/20/25 11:58 4 mg ONCE ONE Administration Protocol Ondansetron HCl 4 mg 01/20/25 11:57 01/20/25 12:10 Ondansetron Hcl 4 Mg/2 Ml Vial IVPUSH 01/20/25 11:58 4 mg ONCE ONE Administration Medical Decision Making Medical Decision Making [facility] Narrative: Patient is an 89 year-old assigned female at with a history of CHF, HTN, osteoarthritis s/p left knee arthroplasty, chronic kidney disease, anemia, DVT, aortic regurgitation, H pylori gastritis, PAD, Eliquis use, presenting to the emergency department with chest pain and left shoulder pain with associated nausea, dizziness, and lightheadedness. Patient's physical exam was unremarkable. Patient's blood work showed a chronically elevated WBC count of 13.1 and chronically elevated CR of 1.54. Patient's BNP was 205. Patient's EKG was unremarkable. Patient's chest x-ray showed no acute process. Patient's CTA chest showed cardiomegaly with evidence of pulmonary congestion, 3x7 pulmonary nodule, and bilateral rotator cuff tears. Patient's clinical presentation is not consistent with fluid overload or CHF exacerbation. Patient's clinical presentation is most consistent with atypical chest pain and rotator cuff pain. I explained my physical exam findings as well as all test results to the patient and the patient's son. I answered all questions asked by the patient and the patient's son. I stressed the importance of the patient taking her medication as directed (either prescribed or as the over the counter packaging recommends). I stressed the importance of the patient following up with her primary care provider. I stressed the importance of the patient returning to the emergency department immediately if her symptoms were to worsen or if she were to develop any dizziness, shortness of breath, difficulty breathing, chest pain, blurry vision, loss of vision, nausea, vomiting, abdominal pain, fever, chills, back pain, or any other complaints. Patient and the patient's son verbalized agreement and understanding with this treatment plan and discharge. Differential Diagnosis Differential Diagnoses: The differential diagnosis associated with the presentation includes Chest pain NSTEMI STEMI CHF exacerbation Atypical chest pain Rotator cuff pain Admission/Observation Consideration of admission/observation: Escalation of care including admission/observation considered Patient would have been admitted to the hospital had her work up had any findings where hospital admission was appropriate and her clinical presentation warranted hospital admission. Lab Data [facility] Lab Attestation statement: I reviewed the patient's lab results. My interpretation of these results are in the MDM Rationale portion of this note. 01/20/25 10:40 01/20/25 10:40 Labs: Lab Results 01/20/25 01/20/25 Range/Units 10:40 12:47 WBC 13.1 H (4.8-10.8) X10*3/uL RBC 3.53 L (4.20-5.50) X10*6/uL Hgb 10.4 L (12.0-16.0) g/dl Hct 31.6 L (37.0-47.0) % MCV 89.5 (80.0-98.0) fL MCH 29.5 (27.0-33.0) pg MCHC 32.9 (31.0-35.0) g/dl RDW 14.6 (11.0-16.0) % Plt Count 310 D (160-400) X10*3/uL MPV 11.3 (9.4-12.3) fL Immature Gran % (Auto) 0.6 H (0.0-0.4) % Neut % (Auto) 77.3 H (45-73) % Lymph % (Auto) 9.2 L (20-40) % [place] % (Auto) 12.6 H (2-11) % Eos % (Auto) 0.1 (0-4) % Baso % (Auto) 0.2 (0-2) % Lymph # (Auto) 1.2 (1.2-4.9) X10*3/uL [place] # (Auto) 1.7 H (0.1-1.2) X10*3/uL Eos # (Auto) 0.0 (0.0-0.4) X10*3/uL Baso # (Auto) 0.0 (0.0-0.2) X10*3/uL Abs Immat Gran (auto) 0.08 H (0.00-0.03) X10*3/uL Absolute Neuts (auto) 10.1 H (2.0-8.3) x10*3/uL Absolute Nucleated RBC 0.000 (0.0-0.012) X10*3/uL Nucleated RBC % (auto) 0.0 (0.0-0.2) /100WBC Smear Tech's Comments VERIFIED PT 15.1 H (10.9-12.4) SEC INR 1.3 H D (0.9-1.1) APTT 27.6 (26.7-34.1) SEC Sodium 138 (135-145) mmol/L Potassium 4.2 (3.3-5.1) mmol/L Chloride 100 (96-108) mmol/L Carbon Dioxide 26 (22-29) mmol/L Anion Gap 16 (12-20) BUN 27 H (9-16) mg/dL Creatinine 1.54 H (0.5-1.4) mg/dL Estim Creat Clear Calc 25.4 Estimated GFR 32 Random Glucose 97 (60-115) mg/dL Calcium 9.8 (8.4-10.2) mg/dL Magnesium 2.2 (1.6-2.6) mg/dL Total Bilirubin 1.2 H (0.0-1.0) mg/dL AST 20 (5-31) U/L ALT < 6 (0-31) U/L Alkaline Phosphatase 124 H (39-117) U/L Troponin I High Sens 13.5 13.4 (<3.5-17.0) ng/L B-Natriuretic Peptide 205 H (<100) pg/mL Total Protein 9.0 H (6.5-8.0) g/dL Albumin 3.9 (3.5-5.0) g/dL Independent Interpretation I performed an independent interpretation of an: EKG, Plain X-Ray and CT Scan Interpretation: My interpretation is in agreement with the radiologist's impression of these imaging studies. L EXAMINATION: XR CHEST 1 VIEW HISTORY: SOB, weakness COMPARISON: Comparison is made with the prior examination dated 03/18/2020. FINDINGS: A single AP portable view of the chest performed at 11:25 AM is submitted. The lungs are expanded and clear. There is no pleural effusion, pneumothorax, or pulmonary vascular congestion. The heart is normal in size. The aorta is calcified. There is degenerative disc disease of the spine. There are severe degenerative changes involving both shoulders. XR/XR chest 1V IMPRESSION: No acute cardiopulmonary abnormality. Electronically signed by: Jatinder hCo MD 01/20/2025 11:41 AM EDT Dictated By: Jatinder Cho MD Signed By: Electronically signed by Jatinder Cho MD 01/20/25 1141 EXAMINATION: CT ANGIOGRAM CHEST CLINICAL INFORMATION: Chest pain COMPARISON: Same x-ray TECHNIQUE: Multiple axial images were obtained through the chest after the administration of 65 mL of Omnipaque 350 intravenous contrast. Extensive vascular post-processing including two-dimensional and three- dimensional reformatted images were created and reviewed on an independent workstation. This CT examination was performed using dose optimization techniques as appropriate, variously including the following: *Automated exposure control *Adjustment of mA and/or kV according to patient size (this includes techniques or standardized protocols for targeted exams where dose is matched to indication/reason for exam; i.e. extremities or head) *Use of iterative reconstruction technique DLP: 335 mGY*cm FINDINGS: QUALITY OF STUDY/CONTRAST BOLUS: Adequate PULMONARY ARTERIES: The main pulmonary artery diameter is 35 mm which is 1.3 times larger than the adjacent aorta. No filling defects are evident in the pulmonary arteries. THORACIC AORTA: There are atherosclerotic ossifications without aneurysm. LUNGS AND PLEURA: There is mild enlargement of pulmonary vascularity. There is focal area secular bronchiectasis in the right perihilar lung. Axial image 72/141: There is a 3 x 7 mm solid pulmonary nodule contacting the major fissure. There is linear scarring in the anterior left upper lobe. There is minimal basilar atelectasis and/or scarring. There is no pleural effusion. MEDIASTINUM: The heart size is enlarged. CORONARY ARTERY CALCIFICATION: Present CHEST WALL/AXILLA: No axillary or internal mammary lymphadenopathy. UPPER ABDOMEN: Gallbladder surgically absent. BONES: There are severe degenerative changes in both shoulder joints and rotator cuff arthropathy. There is moderate to severe degenerative changes in the thoracic spine. CT/CT angio chest PE protocol IMPRESSION: No evidence of pulmonary embolus. Cardiomegaly and evidence of pulmonary vascular congestion. Enlargement of main pulmonary artery raises question of underlying pulmonary hypertension. 3 x 7 mm solid pulmonary nodule in the right upper lobe. No further follow-up is indicated per Fleischner Society recommendations, unless the patient falls into a high risk category, in which case a 12 month follow-up CT chest without contrast is optional. High risk patients includes those with a history of smoking, first-degree relative with lung cancer, or exposure to uranium, radon, or asbestos. Bilateral rotator cuff arthropathy consistent with chronic bilateral full-thickness rotator cuff tears. Fleischner guidelines were followed. Electronically signed by: Alonso Peter MD 01/20/2025 02:59 PM EDT RP Dictated By: Alonso Peter MD Signed By: Electronically signed by Alonso Peter MD 01/20/25 1459 I independently interpreted this EKG and am in agreement with the below findings: Vent. Rate: 68 BPM Atrial Rate: 68 BPM P-R Int: 182 ms QRS Dur: 86 ms QT Int: 392 ms P-R-T Axes: 24 -7 81 degrees QTcB Int: 416 ms Normal sinus rhythm with sinus arrhythmia Septal infarct, age undetermined When compared with ECG of 29-Oct-2011 13:25, Vent. rate has increased Electronically Signed By: MARCO ANTONIO BARRERA MD Dictated By: Marco Antonio Barrera MD Signed By: Electronically signed by Marco Antonio Barrera MD 01/20/25 1054 Radiology Impression Discussion of test interpretation with radiology: I have reviewed the radiologist's reading. Independent Historian Clinical information obtained from an independent historian. History obtained from or confirmed by: Other (patient's son provided additional history and confirmed the history provided by the patient. ) Discharge Plan Discharge Clinical Impression: Complete rotator cuff tear, Chest pain Patient Disposition: Home, Self-Care Instructions: Chest Pain (DC), Rotator Cuff Tear Repair (DC) Additional Instructions: Your work up today was reassuring there is no EMERGENT cause for your symptoms. Caban evaluaci?n de hoy fue tranquilizadora y le asegur? que no hay perri causa EMERGENTE para tracey s?ntomas. Your CT scan of the chest showed bilateral ruptured rotator cuffs. This may be contributing to your pain. Follow up with the orthopedic team about this. Caban tomograf?a computarizada de t?rax mostr? rotura bilateral del manguito rotador. [place] podr?a estar contribuyendo a caban dolor. Consulte con el equipo de ortopedia para obtener m?s informaci?n. IF you are prescribed home medications and/or you are taking over the counter medications at home- it is very important you continue to do so as prescribed / directed unless told otherwise. SI le recetan medicamentos y/o est? tomando medicamentos de venta meng, es muy importante que contin?e haci?ndolo seg?n lo recetado/indicado a menos que le indiquen lo contrario. Follow up with your primary care provider. Return to the emergency department immediately if your symptoms worsen or if you develop any dizziness, shortness of breath, difficulty breathing, chest pain, blurry vision, loss of vision, nausea, vomiting, abdominal pain, fever, chills, back pain, or any other complaints. Sylvia?seguimiento?con caban m?dico de atenci?n primaria. Acuda inmediatamente al servicio de urgencias si tracey s?ntomas empeoran o si presenta falta de aliento, dificultad para respirar, dolor tor?cico, mareos, aturdimiento, dolor de espalda, dolor abdominal, fiebre, escalofr?os o cualquier otro s?ntoma. Please see the information below about our Patient Portal. If you are not yet enrolled in the [facility] Patient Portal, you will receive an enrollment email invitation following your visit to any [facility] care setting. You may also self-enroll in the Patient Portal by visiting our website: [email or web address] The following information is required to access the Patient Portal: - Your [facility] Medical Record Number - Your personal home email address (must match what is in your electronic medical record, Registration staff can assist with this) - Name - Date of Capabilities of the Patient Portal: - Message some providers - View upcoming appointments - Access your health summary, medical history, and visit history - View current conditions and allergies - View procedure and lab results - View your medications, including guidelines, side effects, and precautions - Complete pre-appointment questionnaires requested by your provider - Ready summary reports of your office visits and procedures To access the Patient Portal Mobile Drew, follow these directions: - Search [employer] in the [employer] Store or [employer] Store - Download the Drew - Search for [facility] - Enter your login/password Portal del paciente Si usted no esta inscrito en el portal de pacientes de [facility], recibira perri invitacion de inscripcion despues de caban visita al [facility] o al [facility] via correo electronico. Tambien puede inscribirse voluntariamente en el portal de pacientes visitando nuestra pagina web: [email or web address] La siguiente informacion sera requerida para acceder al portal: - Caban adrián de historia medica de [facility] - Caban direccion de correo electronico personal - Nombre - Fecha de nacimiento Capacidades: Las siguientes capacidades estan disponibles en el portal de pacientes: - Enviar mensajes a algunos doctores - Verificar proximas citas - Acceso a caban historial de marcus, registro medico e historial de visitas - Patricio las condiciones actuales y alergias patricio procedimientos y resultados del laboratorio - Patricio tracey medicamentos, incluyendo las pautas - Efectos secundarios y precauciones - Completar o llenar formularios / cuestionarios de - Citas solicitadas por caban doctor - Leer los resumenes de reportes medicos de tracey visitas y procedimientos [place] acceder a la aplicacion movil: - [facility] [employer] en la Drew Store o [employer] Store - Descargue la aplicacion - [facility] - Ingrese caban nombre de usuario / Contrasena Prescriptions: No Action aspirin [Adult Low Dose Aspirin] 81 mg tablet,delayed release (DR/EC) 81 mg PO DAILY cyanocobalamin (vitamin B-12) 1,000 mcg tablet 1 tab PO QAM omeprazole 20 mg capsule,delayed release(DR/EC) 1 cap PO QAM lisinopril 40 mg tablet 40 mg PO DAILY furosemide 20 mg tablet 0 mg PO cholecalciferol (vitamin D3) 25 mcg (1,000 unit) tablet 25 mcg PO DAILY chlorthalidone 25 mg tablet 25 mg PO QAM (DME) blood pressure test kit-large Kit See Rx Instructions .ROUTE DAILY Qty: 1 Rx Instructions: As directed ferrous sulfate 325 mg (65 mg iron) tablet 325 mg PO BID calcitriol 0.25 mcg capsule 0.25 mcg PO 3XW Rx Instructions: administer after dialysis on dialysis days acetaminophen 325 mg capsule 325 mg PO QID PRN ciclopirox 0.77 % cream 1 appl topical BID lidocaine 5 % ointment 1 appl topical BID loperamide [Anti-Diarrheal (loperamide)] 2 mg capsule 2 mg PO QID PRN ascorbic acid (vitamin C) 500 mg tablet 500 mg PO BID acetaminophen 500 mg tablet 1,000 mg PO Q8H PRN amlodipine 5 mg tablet 5 mg PO DAILY loperamide [Anti-Diarrheal (loperamide)] 2 mg tablet PO Referrals: Britney Lockhart MD [Primary Care Provider, Internal Medicine] Stand Alone Forms: Work/School Release Interventions: ED Discharge Assessment Last Done: 01/20/25 15:28 Discharge Date/Time: 01/20/25 15:41 Print Language: Malaysian
[2025-01-20 12:08] VITALS: BP 157/68; PULSE 70; RESP 17; TEMP 36.7; O2SAT 97
[2025-01-20 13:20] LABS: Troponin-I High Sensitivity 13.4 ng/L (<3.5-17.0)
--- OUTSIDE RECORDS SUMMARY | 2025-01-20 13:48 | XMS_ITS | Clinical Summary ---
Author Organization [facility], Address [address] [place] [address] [place] [address] Phone Care Team Providers Care Power Plant Assistant Name Role Phone Britney Lockhart MD Primary Care Provider [phone] Allergies Active Allergy Reactions Criticality Noted Date Comments Enoxaparin 09/07/2020 Medications aspirin (ASPIR-LOW) 81 MG EC tablet Comments: Filled Date: Aug 07 2016 12:00AM Duration: 30 Active lisinopril (PRINIVIL,ZESTR IL) 40 MG tablet Comments: Filled Date: Nov 22 2016 12:00AM Duration: 30 Active Acetaminophen Extra Strength 500 MG tablet 10/27/2019 Activ e omeprazole (PriLOSEC) [address] capsule Take 20 mg by mouth 1 (one) time each day Do not crush or chew. Active cyanocobalamin (VITAMIN B-12) 1000 MCG tablet Take 1,000 mcg by mouth 1 (one) time each day Active allopurinol (ZYLOPRIM) 100 MG tablet Take 100 mg by mouth 07/14/2020 Active ascorbic acid (VITAMIN C) 500 MG tablet TAKE 1 TABLET BY MOUTH TWICE DAILY IN THE MORNING AND IN THE EVENING 07/13/2020 Active FeroSul 325 (65 Fe) MG tablet TAKE 1 TABLET BY MOUTH TWICE DAILY IN THE MORNING AND IN THE EVENING WITH VITAMINA C 07/13/2020 Active warfarin (COUMADIN) 5 MG tablet Take 5 mg by mouth 1 (one) time each day Take as directed per After Visit Summary. Active amLODIPine (NORVASC) 5 MG tablet Take 5 mg by mouth 04/19/2022 Active Eliquis 2.5 MG tablet Take 2.5 mg by mouth every morning and evening Active chlorthalidone 25 MG tablet TAKE 1 TABLET BY MOUTH EVERY MORNING 90 tablet 3 03/09/2024 Active calcitriol (ROCALTROL) 0.25 MCG capsule TAKE 1 CAPSULE BY MOUTH EVERY MORNING (SATURDAY, SATURDAY, AND SATURDAY) 36 capsule 3 06/10/2024 Active furosemide (LASIX) 20 MG tablet TAKE 1 TABLET BY MOUTH EVERY MORNING 90 tablet 3 07/21/2024 Active cholecalciferol (VITAMIN D-3) 25 MCG (1000 UT) tablet TAKE 2 TABLETS BY MOUTH ONCE DAILY IN THE MORNING 90 tablet 3 08/31/2024 Active cholestyramine (QUESTRAN) 4 g packet 10/08/2024 Active Active Problems Problem Noted Date Diagnosed Date Chronic kidney disease, stage 4 (severe) 024 Renal osteodystrophy 05/15/2022 Hypertensive disorder 01/11/2020 Chronic kidney disease due to hypertension 06/26 Stage 3b chronic kidney disease 06/26/2019 Anemia 01/10/2012 Resolved Problems Problem Noted Date Diagnosed Date Resolved Date [facility] failure 09/07/2020 03/27/2021 Secondary hyperparathyroidism of renal origin 01/11/20 20 03/27/2021 Edema of lower extremity 06/26/2019 Immunizations Immunization Administration Dates Next Due Influenza Split 01/28/2013,01/10/2012 Influenza Split High Dose Pr eservative Free IM 02/10/2024,01/28/2019,03/03/2018 Influenza, Quadrivalent, Preservative Free 06/04,03/18/2020,03/15/2015 Influenza, Quadrivalent, With Preservative 02/07,02/06/2016 Pneumococcal Conjugate 13-Valent 10/03/2016 Pneumococcal Polysaccharide 12/23/2014, 4 Td 11/21/2005 Tdap 02/10/2024,08/03/2013 Zoster 10/03/2016 Family History Medical History Relation Comments Heart disease Sibling Relation Status Comments Father Mother Sibling Social History Tobacco Use Types Packs/Day Years Used Date Smoking Tobacco: Never Alcohol Use Standard Drinks/Week Comments No 0 (1 standard drink = 0.6 oz pur e alcohol) Comments Unknown Sex and Gender Information Value Date Recorded Sex Assigned at Not on file Legal Sex Female 4:36 PM EST Gender Identity Not on file Sexual Orientation Not on file Last Filed Vital Signs Vital Sign Reading Time Taken Comments Blood Pressure 125/65 07/13/2019 1:17 PM EST Pulse 72 07/13/2019 1:17 PM EST Temperature - - Respiratory Rate 16 07/13/2019 1:17 PM EST Oxygen Saturation - - Inhaled Oxygen Concentration - - Weight 88.5 kg (195 lb) 07/13/2019 1:17 PM EST Height 165.1 cm (5' 5 ) 07/13/2019 1:17 PM EST Body Mass Index 32.45 07/13/2019 1:17 PM EST Plan of Treatment Upcoming Encounters Date Type Department Care Team (Late st Contact Info) Description 03/26/2025 11:15 AM EST Office Visit [facility] [place] - [address] [email or web address] [address] [place] [address] Tyler Hawkins MD [address] [place] [address] [place] [id number] Health Maintenance Due Date Last Done Comments Influenza Vaccine (#1) 2025 4, 06/04/2023, 03/18/2020, Additional history exists Pneumococcal Vaccine: 50+ Years Completed 10/03/2016, 12/23/2014, 08/03/2013 Pneumococcal Vaccine: Peds (0 to 5 Years) and At-Risk Patients (6 to 49 Years) Discontinued 10/03/2016, 12/23/2014, 08/03/2013 Hepatitis B Vaccine Aged Out No longe r eligible based on patient's age to complete this topic Insurance [employer] Dual SNP ([id number]) PAULA MENDEZ [id number] Care Teams Power Plant Assistant Relationship Specialty Start Date End Date Britney Lockhart MD PCP - General 03/17/19
--- OUTSIDE RECORDS SUMMARY | 2025-01-20 13:48 | XMS_ITS | Patient Health Record ---
Author Organization [facility] Address [address] [place] [address] Care Team Providers Care Furniture Packer Name Role Phone Chantelle ROSAS, Britney Primary Care Provider Kay Moya Jr, Toñito Unavailable Reason For Referral No Information Medications Medication SIG (Take, Route, Frequency, Duration) Notes Start Date End Date Status Chlorthalidone 25 MG 1 tablet in the mor liyah Orally Once a day Active Lisinopril 40 MG 1 tablet Orally Once a day Active Alendronate Sodium 35 MG 1 tablet Orally Once a day Active Warfarin Sodium 5 MG as directed Orally daily Active Mapap 500 MG 2 tablets as needed Orally every 8 hrs/prn Active Aspir-81 81 MG 1 tablet Orally Once a day Active Vitamin B12 1000 MCG 1 tablet Orally Onc e a day Active Furosemide 20 MG 1 tablet Orally Once a day Active Lomotil 2.5-0.025 MG 1 tablet as needed Orally Four times a day/prn for 30 Active Vitamin D3 2000 UNIT 1 tablet Orally Onc e a day Active Diphenoxylate-Atropine 2.5-0.025 MG 1 tablet as needed Orally Four times a day for 30 days 03/15/2021 Active NIFEdipine ER 60 MG 1 tablet on an empty stomach Orally Once a day Active Immunizations Vaccine Route Administration Date Status Comme nts Flu vaccine no Preserv 3 and > Unknown 02/21/2016 Admin istered Problems Problem Type SNOMED Code ICD Code Onset Dates Problem Status W/U Status Risk Notes Problem 12569064 Diarrhea (R19.7) Active confirmed Plan Of Treatment No Information Insurance Providers Payer Name Payer Address Payer Phone Subscriber Number Group Number Insured Name Patient Relationship to Insured Coverage Start Date Coverage End Date MEDICARE OF [place] [address] [place] [id number] JUAN PURVIS Self - patient is the insured [facility] [address] [place] [address] [id number] JUAN PURVIS Self - patient is the insured Medical (General) History Medical History History ICD Code osteoarthritis PVD Vitamin B12 deficiency Anemia Chronic anticoagulation Hx of DVT of lower extremity depression GERD Hx of Endometrial cancer Aortic regurgitation Tricuspid regurgitation Mitral regurgitation Chronic kidney disease stage III Surgical History Surgery Date(Month/Year) cholecystectomy knee surgery hysterectomy
--- OUTSIDE RECORDS SUMMARY | 2025-01-20 13:49 | XMS_ITS | Encounter Summary ---
Author Organization [facility], Address [address] [place] [address] Phone Care Team Providers Care Business Taxes Specialist Name Role Phone Britney Lockhart MD Primary Care Provider [phone] Encounter Details Date Type Department Care Team (Late Contact Info) Description 02/11/2024 Documentation Only [facility] [address] [place] [address] Janet Freitas [address] [place] [address] Social History Tobacco Use Types Packs/Day Years Used Date Smoking Tobacco: Never Alcohol Use Standard Drinks/Week Comments No 0 (1 standard drink = 0.6 oz pur e alcohol) Comments Unknown Sex and Gender Information Value Date Recorded Sex Assigned at Not on file Legal Sex Female 4:36 PM EST Gender Identity Not on file Sexual Orientation Not on file documented as of this encounter Plan of Treatment Upcoming Encounters Date Type Department Care Team (Late st Contact Info) Description 03/26/2025 11:15 AM EST Office Visit [facility] Silvana OlivasJan Dr Elizabeth [address] [place] [address] Tyler Hawkins MD [address] [facility] [place] [address] documented as of this encounter Visit Diagnoses Not on filedocumented in this encounter Care Teams Business Taxes Specialist Relationship Specialty Start Date End Date Britney Lockhart MD PCP - General 03/17/19 documented as of this encounter
--- OUTSIDE RECORDS SUMMARY | 2025-01-20 13:49 | XMS_ITS | Patient Health Record ---
Author Organization [facility] Address [address] [place] [address] Care Team Providers Care Licensed Pharmacist Name Role Phone Britney Lockhart Primary Care Provider Eran Baxter Unavailable [phone] Allergies No Known Allergies Reason For Referral No Information Medications Medication SIG (Take, Route, Frequency, Duration) Notes Start Date End Date Status zzzCompression Stockings 20-30mm Hg . . .; Duration: . Not-Takin g Capsaicin 0.025 % 1 application to affected area Externally Three times a day Not-Taking Ammonium Lactate 12 % 1 application Externally to affected areas of dry skin to feet except for between the toes Twice a day; Duration: 30 days Active Acetaminophen 325 MG 1 capsule as needed Orally every 8 hours Not-Taking Ciclopirox Olamine 0.77 % 1 application Externally Twice a day; Duration: 30 days Active Vitamin C Active Vitamin D3 191358 UNIT/GM as directed Active Lidocaine 5 % External; Duration: 30 Active NIFEdipine ER Osmotic 60 MG Oral; Duration: 30 Not-Takin g Vitamin B-12 1000 MCG Oral; Duration: 30 Active Tylenol Not-Taking Orthopedic Extra Depth Shoes With Custom Heat Molded Multidensity Innersoles 1 Pair shoes with 3 Pair custom heat molded innersoles Wear Daily; Duration: 365 days Active Diphenoxylate-Atropine 2.5-0.025 MG Orally Not-Taking Furosemide 20 MG 1 tablet Orally Once a day; Duration: 30 day(s) Not-Taking Omeprazole Not-Takin g Calcitriol Active Alendronate Sodium N ot-Taking Chlorthalidone 25 MG Oral; Duration: 30 Active Dry Eyes Not-Taking Allopurinol Active Omeprazole 20 MG 1 tablet Orally twic e a day Not-Taking Aspirin 81 MG 1 tablet Orally Once a day Active Minerin - as directed External ly Apply to dry areas on skin twice daily as directed; Duration: 30 days 03/29/2017 Not-Taking Nifedical XL 60 MG 1 tablet Orally Once a day Not-Taking Loperamide HCl 2 MG Oral; Duration: 10 Not-Taking Warfarin Sodium 5 MG Orally Not-Taking Mapap 500 MG Orally Not-Lamberto ing Lisinopril 40 MG Oral; Duration: 30 Active Diclofenac Sodium 1 % External; Duration: 25 Active Metoprolol Tartrate 25 MG 1 tablet Orall y Twice a day Not-Taking Ferrous Fumarate Act luciano Immunizations Vaccine Route Administration Date Status Comme nts Influenza Unknown 01/12/2021 Administered Influenza Unknown 02/11/2024 Administered COVID-19 Saqib & Saqib/Miroslava Unknown 07/18/2021 R efused Social History Tobacco Use: Social History Observation Description Date Details (start date - stop date) Never Smoker NA - NA Tobacco use other than smoking: Question Answer Notes Are you an other tobacco user? No Tobacco Control (Standard) Question Answer Notes Tobacco use: Nonsmoker AUDIT-C (Standard) Question Answer Notes Did you have a drink containing alcohol in the p ast year? No Points 0 Interpretation Negative Problems Problem Type SNOMED Code ICD Code Onset Dates Problem Status W/U Status Risk Notes Problem Acquired hallux valgus (05849826) Hallux valgus (acquired), left foot (M20.12) Active confirmed Problem Acquired hallux valgus (46240445) Hallux valgus (acquired), right foot (M20.11) Active confirmed Problem Bilateral atherosclerosis of arteries of lower limbs (disorder) (02614190085405722 ) Atherosclerosis of [place] artery of both lower extremities, with unspecified presence of clinical manifestation (I70.203) Active confirmed Q7(A), Q8(2B), Q9(1B,2 C) Problem Ulcer of toe of left foot (disorder) (81893835660437112 ) Skin ulcer of toe of left foot, limited to breakdown of skin (L97.521) Active confirmed Vital Signs Blood pressure diastolic 60 mm Hg 11/20/2024 Height 5 ft 5 in in 11/20/2024 Blood pressure systolic 128 mm Hg 11/20/2024 Weight 148 lbs 11/20/2024 BMI 24.63 kg/m2 11/20/2024 Procedures Procedure Date Ordered Date Performed Result Body Sit e 62682-ZYSVHYU NAIL, 6 OR MORE 05/15/2024 N/A 51295-NGWB SKIN LESIONS, OVER 4 05/15/2024 N/A 51482-FGYJDOS NAIL, 6 OR MORE 08/14/2024 N/A 84527-TCPI SKIN LESIONS, OVER 4 08/14/2024 N/A 81406-ZFPZWKM NAIL, 6 OR MORE 11/20/2024 N/A 45777- Debride <25 sq cm 11/20/2024 N/A 76568-MPDT SKIN LESIONS, OVER 4 11/20/2024 N/A Encounters Encounter Location Date Provider Diagnosis [address] [address] 05/15/2024 Eran Salazar Atherosclerosis of [place] artery of both lower extremities, with unspecified presence of clinical manifestation I70.203 ; Tinea unguium B35.1 ; Pain in right toe(s) M79.674 ; Pain in left toe(s) M79.675 ; Hallux valgus (acquired), left foot M20.12 and Hallux valgus (acquired), right foot M20.[address] [facility] [address] 08/14/2024 Eran Salazar Atherosclerosis of [place] artery of both lower extremities, with unspecified presence of clinical manifestation I70.203 ; Tinea unguium B35.1 ; Xerosis of skin L85.3 ; Pain in right toe(s) M79.674 and Pain in left toe(s) M79.[address] [address] 11/20/2024 Eran Salazar Tinea unguium B35.1 ; Atherosclerosis of [place] artery of both lower extremities, with unspecified presence of clinical manifestation I70.203 ; Pain in right toe(s) M79.674 ; Pain in left toe(s) M79.675 ; Hallux valgus (acquired), left foot M20.12 ; Hallux valgus (acquired), right foot M20.11 and Skin ulcer of toe of left foot, limited to breakdown of skin L97.521 [facility] [place] [address] [place] [address] 02/11/2024 Eran Salazar Assessments Encounter Date Diagnosis (ICD Code) Assessment Notes Treatment Notes Treatment Clinical Notes Section Notes 05/15/2024 Tinea unguium (ICD-10 - B35.1) 05/15/2024 Atherosclerosis of [place] artery of both lower extremities, with unspecified presence of clinical manifestation (ICD-10 - I70.203) Q7(A), Q8(2B), Q9(1B,2C) 08/14/2024 Tinea unguium (ICD-10 - B35.1) 08/14/2024 Atherosclerosis of [place] artery of both lower extremities, with unspecified presence of clinical manifestation (ICD-10 - I70.203) Q7(A), Q8(2B), Q9(1B,2C) 11/20/2024 Tinea unguium (ICD-10 - B35.1) 11/20/2024 Atherosclerosis of [place] artery of both lower extremities, with unspecified presence of clinical manifestation (ICD-10 - I70.203) Q7(A), Q8(2B), Q9(1B,2C) 11/20/2024 Pain in right toe(s) (ICD-10 - M79.674) 08/14/2024 Xerosis of skin (ICD-10 - L85.3) 05/15/2024 Pain in right toe(s) (ICD-10 - M79.674) 05/15/2024 Pain in left toe(s) (ICD-10 - M79.675) 08/14/2024 Pain in right toe(s) (ICD-10 - M79.674) 11/20/2024 Pain in left toe(s) (ICD-10 - M79.675) 11/20/2024 Hallux valgus (acquired), left foot (ICD-10 - M20.12) 08/14/2024 Pain in left toe(s) (ICD-10 - M79.675) 05/15/2024 Hallux valgus (acquired), left foot (ICD-10 - M20.12) 05/15/2024 Hallux valgus (acquired), right foot (ICD-10 - M20.11) 11/20/2024 Hallux valgus (acquired), right foot (ICD-10 - M20.11) 11/20/2024 Skin ulcer of toe of left foot, limited to breakdown of skin (ICD-10 - L97.521) Patient Educated with: WOUND CARE INSTRUCTIONS. pdf (WOUND CARE INSTRUCTIONS. pdf) Plan Of Treatment Pending Test Test Name Order Date 04760-GKLWOBU NAIL, 6 OR MORE 08/26/2014 41034-STTDDXC NAIL, 6 OR MORE 12/08/2014 42535-EMZMUVU NAIL, 6 OR MORE 03/09/2015 52751-DSKGGNL NAIL, 6 OR MORE 06/20/2015 79772-GBNLWSH NAIL, 6 OR MORE 09/07/2015 10360-HJESYGP NAIL, 6 OR MORE 11/18/2015 07260-BFXKNWK NAIL, 6 OR MORE 01/31/2016 16798-LCOABTU NAIL, 6 OR MORE 06/15/2016 33689-USMYZCK NAIL, 6 OR MORE 08/28/2016 07611-BHPXWOQ NAIL, 6 OR MORE 11/09/2016 38076-NTBHFEN NAIL, 6 OR MORE 01/18/2017 11866-BBFREOV NAIL, 6 OR MORE 06/14/2017 28360-SACGIPE NAIL, 6 OR MORE 03/29/2017 83560-YCWJGJF NAIL, 6 OR MORE 09/24/2017 39097-AJHTPWE NAIL, 6 OR MORE 12/24/2017 44294-EDCXJNU NAIL, 6 OR MORE 04/08/2018 92133-OOFDJWQ NAIL, 6 OR MORE 07/01/2018 79554-YHUTEGX NAIL, 6 OR MORE 09/16/2018 08776-YIUMIJY NAIL, 6 OR MORE 11/28/2018 82240-YNMEXGD NAIL, 6 OR MORE 02/17/2019 64318-VTTTHBO NAIL, 6 OR MORE 04/21/2019 83081-EIDTIHU NAIL, 6 OR MORE 07/07/2019 35027-HISKSTU NAIL, 6 OR MORE 09/29/2019 32275-FOBJLZG NAIL, 6 OR MORE 12/25/2019 15037-FVYRBNE NAIL, 6 OR MORE 06/07/2020 30095-VOIPETB NAIL, 6 OR MORE 10/07/2020 38171-TIYIFVN NAIL, 6 OR MORE 12/16/2020 83499-GWUGERA NAIL, 6 OR MORE 03/14/2021 84522-SZSBAIK NAIL, 6 OR MORE 07/18/2021 81005-WISBIXH NAIL, 6 OR MORE 09/26/2021 29732-QREPLRS NAIL, 6 OR MORE 04/17/2022 60553-EZSWVDY NAIL, 6 OR MORE 10/17/2022 00618-JPKWQNT NAIL, 6 OR MORE 01/04/2023 98056-INDXFYA NAIL, 6 OR MORE 03/29/2023 35743-EJSCJEF NAIL, 6 OR MORE 06/07/2023 90912-PEIDKQK NAIL, 6 OR MORE 10/25/2023 69213-KJKLUNF NAIL, 6 OR MORE 05/15/2024 76008-MUUPRML NAIL, 6 OR MORE 08/14/2024 26209-QCNXYQI NAIL, OR MORE 11/20/2024 49800-Lwnintys Plate 10/25/2023 64579-Ahbslzkh Plate 06/07/2023 13756-Ertmfdvf Plate 03/29/2023 55089-Asrymqaz Plate 01/04/2023 30327-Mhaxwqjx Plate 10/17/2022 96547-Vwisgpes Plate 04/17/2022 35649-Dtwoggck Plate 09/26/2021 07273-Kfydwnir Plate 07/18/2021 24204-Jucnictz Plate 03/14/2021 86111-Jorlbiyz Plate 12/16/2020 68036-Eaygwkew Plate 10/07/2020 70335-Hxbaqwju Plate 04/08/2018 04986-Aoklqicm Plate 03/29/2017 04178-Uihjmafm Plate 01/18/2017 11220-Iiegwqin Plate 08/28/2016 31911-Ajjfvdvb Plate 11/09/2016 78486-Gfofcjgl Plate 06/15/2016 99373-Yweermyx Plate 09/07/2015 63431-Hclevijy Plate 06/20/2015 24640- Debride <25 sq cm 11/20/2024 99325-GINY SKIN LESIONS, OVER 4 09/25/19 18 76472-BBZA SKIN LESIONS, OVER 4 10/18/19 23 33969-FHWD SKIN LESIONS, OVER 4 01/05/20 23 67582-IPRZ SKIN LESIONS, OVER 4 03/29/20 23 19372-NCLA SKIN LESIONS, OVER 4 06/07/19 24 57305-DTRL SKIN LESIONS, OVER 4 10/25/19 24 91609-OVHK SKIN LESIONS, OVER 4 05/15/19 25 30772-LZAM SKIN LESIONS, OVER 4 11/21/19 25 04398-DBOF SKIN LESIONS, OVER 4 08/15/19 25 57225-BPZP SKIN LESIONS, OVER 4 06/20/19 16 61733-ATJX SKIN LESIONS, OVER 4 03/09/20 15 72196-CUTD SKIN LESIONS, OVER 4 12/09/19 15 33813-KNFR SKIN LESIONS, OVER 4 08/27/19 15 12930-ROZW SKIN LESIONS, OVER 4 09/07/19 16 81718-ACMX SKIN LESIONS, OVER 4 11/18/19 16 92357-DHUC SKIN LESIONS, OVER 4 06/15/19 17 22674-PWGS SKIN LESIONS, OVER 4 01/31/20 16 27756-DQTL SKIN LESIONS, OVER 4 11/10/19 17 00090-RKJF SKIN LESIONS, OVER 4 08/29/19 17 23895-LCOE SKIN LESIONS, OVER 4 01/19/20 17 10657-CLAE SKIN LESIONS, OVER 4 03/29/20 17 95624-LDUK SKIN LESIONS, OVER 4 12/25/19 18 08597-AQSG SKIN LESIONS, OVER 4 06/14/19 18 89391-YNPM SKIN LESIONS, OVER 4 04/08/20 18 73258-FYGX SKIN LESIONS, OVER 4 07/01/19 19 16167-WPTT SKIN LESIONS, OVER 4 11/29/19 19 44747-TZPN SKIN LESIONS, OVER 4 09/17/19 19 17189-SPWD SKIN LESIONS, OVER 4 09/29/19 20 48136-FUPR SKIN LESIONS, OVER 4 07/07/19 20 88136-BVEU SKIN LESIONS, OVER 4 04/21/20 19 41594-NWLQ SKIN LESIONS, OVER 4 02/18/20 19 31400-NQEX SKIN LESIONS, OVER 4 10/08/19 21 53058-YFEV SKIN LESIONS, OVER 4 12/17/19 21 20709-VREK SKIN LESIONS, OVER 4 06/07/19 21 68576-CZMC SKIN LESIONS, OVER 4 12/25/19 20 13887-MUWA SKIN LESIONS, OVER 4 03/14/20 21 84389-TAGZ SKIN LESIONS, OVER 4 07/19/19 22 72393-OGNB SKIN LESIONS, OVER 4 09/27/19 22 15256-LKRR SKIN LESIONS, OVER 4 04/17/20 22 59599 - Tenotomy, open flexor 09/15/2019 62427 - Tenotomy, open flexor 06/21/2017 48342 - Tenotomy, open flexor 07/26/2017 69997 - Tenotomy, open flexor 09/06/2017 Next Appt Details Provider Name:Eran Salazar , 02/12/2025 11:15:00 AM, [address] [place] [address], [address], Insurance Providers Payer Name Payer Address Payer Phone Subscriber Number Group Number Insured Name Patient Relationship to Insured Coverage Start Date Coverage End Date [facility] [employer] Claims [address] [place] [id number] Abby Garsia Self - patient is the insured Medical (General) History Medical History History ICD Code Anemia Aortic regurgitation Deep vein thrombosis Depression endometrial cancer Gastroesophageal reflux disease (GERD) Hypertension Kidney disease Mitral valve regurgitation Obesity, morbid osteoarthritis Peripheral vascular disease Tricuspid regurgitation Vitamin B12 deficiency Venous insufficiency Surgical History Surgery Date(Month/Year) left knee replacement 1995 right knee replacement 2011 gall bladder 1994 hysterectomy 2011 Hospitalization History Reason Date(Month/[place] [facility] [place]- 1 day 12/27/2016
--- OUTSIDE RECORDS SUMMARY | 2025-01-20 13:49 | XMS_ITS | Encounter Summary ---
Author Organization [employer] Address [address] [facility] [facility] [address] [place] [address] Care Team Providers Care Director Of Event Sales Name Role Phone Britney Lockhart MD Primary Care Provider [phone] Encounter Details Date Type Department Care Team ([facility] st Contact Info) Description 12/13/2022 Orders Only [facility] [address] [place], [place] [id number] Marlin Gifford LPN Social History Tobacco Use Types Packs/Day Years Used Date Smoking Tobacco: Never Assessed Comments Unknown Sex and Gender Information Value Date Recorded Sex Assigned at Female 03/12/2022 10:14 AM EDT Legal Sex Female 10:14 AM EDT Gender Identity Female 03/12/2022 10:14 AM EDT Sexual Orientation Straight 03/12/2022 10 :14 AM EDT documented as of this encounter Plan of Treatment Not on file documented as of this encounter Visit Diagnoses Not on filedocumented in this encounter Care Teams Director Of Event Sales Relationship Specialty Start Date End Date Britney Lockhart MD [address] [place] [id number] PCP - General Family Medicine 05/27/13 [facility] [place] 02/21/23 documented as of this encounter
--- OUTSIDE RECORDS SUMMARY | 2025-01-20 13:49 | XMS_ITS | Encounter Summary ---
Author Organization [facility], Address [address] [place] [address] Phone Care Team Providers Care Duster Tender Name Role Phone Britney Lockhart MD Primary Care Provider [phone] Encounter Details Date Type Department Care Team (Late Contact Info) Description 02/11/2024 Documentation Only [facility] [address] Elizabeth [address] [place] [address] Janet Freitas [address] [place] [phone] Social History Tobacco Use Types Packs/Day [...] Visit [facility] Silvana OlivasJan Dr Elizabeth [address] [place] [address] Tyler Hawkins MD [address] [facility] [place] [address] documented as of this encounter Visit Diagnoses Not on filedocumented in this encounter Care Teams Duster Tender Relationship Specialty Start Date End Date Britney Lockhart MD PCP - General 03/17/19 documented as of this encounter
--- OUTSIDE RECORDS SUMMARY | 2025-01-20 13:49 | XMS_ITS | Encounter Summary ---
Author Organization [employer] Address [address] [facility] [address] [place] [address] Care Team Providers Care Newspaper Stuffer Name Role Phone Britney Lockhart MD Primary Care Provider [phone] Reason for Visit * Reason Onset Date Comments INR Results 03/11/2023 Encounter Details Date Type Department Care Team ([facility] st Contact Info) Description 03/11/2023 Telephone [facility] MEDICINE [address] [place], [place] [phone] Britney Lockhart MD [address] [place], [place] [phone] INR Results Social History Tobacco Use Types Packs/Day Years Used Date Smoking Tobacco: Never Assessed Comments Unknown Sex and Gender Information Value Date Recorded Sex Assigned at Female 03/12/2022 10:14 AM EDT Legal Sex Female 10:14 AM EDT Gender Identity Female 03/12/2022 10:14 AM EDT Sexual Orientation Straight 03/12/2022 10 :14 AM EDT documented as of this encounter Miscellaneous Notes * Telephone Encounter - Darcy Almendarez RN - 03/12/2023 4:10 PM EDT Incoming call from Cindy at [facility] who reports pt's INRs continuously subtherapeutic. Today INR was 1.6. This is despite them continuously increasing pt's Warfarin dose. Pt currently on 20mg 3x/week and 10- 15mg every other day of the week. D/t high levels of warfarin they are requesting pt be switched to Eliquis of Xarelto. They states pt has [employer] insurance which should cover it. Informed PCP out of office. Will send message * Telephone Encounter - Roger Li My - 03/11/2023 2:39 PM EDT TC from [facility] with [facility] requesting to speak with a Nurse or provider to report results for INR and speak for a plan of care for pt. Please contact [facility] @ [phone] documented in this encounter Plan of Treatment Not on file documented as of this encounter Visit Diagnoses Not on filedocumented in this encounter Care Teams Newspaper Stuffer Relationship Specialty Start Date End Date Britney Lockhart MD [address] [place] [id number] PCP - General Family Medicine 05/27/13 [facility] 02/21/23 documented as of this encounter
--- OUTSIDE RECORDS SUMMARY | 2025-01-20 13:49 | XMS_ITS | Encounter Summary ---
Author Organization [employer] Address [address] [place] [address] [address] [place] [address] Care Team Providers Care Career Based Intervention Coordinator Name Role Phone Britney Lockhart MD Primary Care Provider [phone] Encounter Details Date Type Department Care Team ([facility] st Contact Info) Description 04/25/2022 Abstract [facility] MEDICINE [address] [place] [address] Provider, MD Karsten Social History Tobacco Use Types Packs/Day Years [...] on filedocumented in this encounter Care Teams Career Based Intervention Coordinator Relationship Specialty Start Date End Date Britney Lockhart MD [address] [place] [address] PCP - General Family Medicine 05/27/13 [facility] 02/21/23 documented as of this encounter
--- OUTSIDE RECORDS SUMMARY | 2025-01-20 13:49 | XMS_ITS | Encounter Summary ---
Author Organization [employer] Address [address] [facility] [address] [place] [address] Care Team Providers Care Bike Mechanic Name Role Phone Britney Lockhart MD Primary Care Provider [phone] Encounter Details Date Type Department Care Team ([facility] st Contact Info) Description 12/03/2023 Orders Only [facility] MEDICINE [address] [place], [place] [phone] Britney Lockhart MD [address] [place], [place] [phone] Social History Tobacco Use Types Packs/Day Years Used Date Smoking Tobacco: Former Cigarettes Passive Smoke Exposure: Never Smokeless Tobacco: Never Alcohol Answer Date Recorded Frequency of Alcohol Consumption Not on file 10/29/2023 Average Number of Drinks Not on file 024 Frequency of Binge Drinking Not on file 10/11 Score 0 10/29/2023 Depression Answer Date Recorded Patient Health Questionnaire-9 Score 5 06/04/2023 Patient Health Questionnaire-9 Score 5 06/04/2023 Last PHQ-9: Questionnaire Data Not on file 0 06/04/2023 Housing Stability Answer Date Recorded What is your housing situation today? I have stiven [place]cfar[place] 06/04/[address] you li ve. Do you have problems with any of the following? None of the above 06/04/2023 Food Insecurity Answer Date Recorded Within the past 12 months, y ou worried that your food would run out before you got money to buy more: Never True 06/04/2023 Within the past 12 months,th e food you bought just didn't last and you didn't have enough money to get more: Never True Transportation Answer Date Recorded In the past 12 months, has l ack of transportation kept you from medical appts, meetings, work or from getting things needed for daily living? No 06/04/2023 Utilities Answer Date Recorded In the past 12 months, has t he electric, gas, oil or water company threatened to shut off services in your home? No 06/04/2023 Depression Answer Date Recorded Patient Health Questionnaire-2 Score 2 06/04/2023 Comments Unknown Sex and Gender Information Value Date Recorded Sex Assigned at Female 03/12/2022 10:14 AM EDT Legal Sex Female 10:14 AM EDT Gender Identity Female 03/12/2022 10:14 AM EDT Sexual Orientation Straight 03/12/2022 10 :14 AM EDT documented as of this encounter Plan of Treatment Not on file documented as of this encounter Visit Diagnoses Not on filedocumented in this encounter Additional Health Concerns Assessment Noted Time PHQ-9 Depression Total Score: 5 06/04/19 24 1:45 PM EST documented as of this encounter Care Teams Bike Mechanic Relationship Specialty Start Date End Date Britney Lockhart MD [address] [place] [phone] PCP - General Family Medicine 05/27/13 [facility] 02/21/23 documented as of this encounter
--- OUTSIDE RECORDS SUMMARY | 2025-01-20 13:49 | XMS_ITS | Encounter Summary ---
Author Organization [employer] Address [address] [facility] [address] [place] [address] Care Team Providers Care Data Lead Name Role Phone Britney Lockhart MD Primary Care Provider Encounter Details Date Type Department Care Team ([facility] st Contact Info) Description 06/14/2023 Orders Only [facility] MEDICINE [address] [place], [place] [phone] Britney Lockhart MD [address] [place], [place] [phone] Social History Tobacco Use Types Packs/Day Years Used Date Smoking Tobacco: Never Assessed Depression Answer Date Recorded Patient Health Questionnaire-9 [...] documented as of this encounter Care Teams Data Lead Relationship Specialty Start Date End Date Britney Lockhart MD [address] [place] [id number] PCP - General Family Medicine 05/27/13 [facility] 02/21/23 documented as of this encounter
--- OUTSIDE RECORDS SUMMARY | 2025-01-20 13:49 | XMS_ITS | Encounter Summary ---
Author Organization [employer] Address [address] [place] [address] [address] [address] Care Team Providers Care Cotton Ball Machine Tender Name Role Phone Britney Lockhart MD Primary Care Provider [phone] Reason for Visit * Reason Onset Date Comments Appointment Request 05/10/2023 Encounter Details Date Type Department Care Team ([facility] st Contact Info) Description 05/10/2023 Telephone [facility] MEDICINE [address] [place], [place] [phone] Britney Lockhart MD [address] [place], [place] [phone] Appointment Request Social History Tobacco Use Types Packs/Day Years Used Date Smoking Tobacco: Never Assessed Comments Unknown Sex and Gender Information Value Date Recorded Sex Assigned at Female 03/12/2022 10:14 AM EDT Legal Sex Female 10:14 AM EDT Gender Identity Female 03/12/2022 10:14 AM EDT Sexual Orientation Straight 03/12/2022 10 :14 AM EDT documented as of this encounter Miscellaneous Notes * Telephone Encounter - Pratik Guillaume - 05/10/2023 11:53 AM EST Tc from patients daughter requesting a appt and would like a call back if anything becomes available documented in this encounter Plan of Treatment Not on file documented as of this encounter Visit Diagnoses Not on filedocumented in this encounter Care Teams Cotton Ball Machine Tender Relationship Specialty Start Date End Date Britney Lockhart MD [address] [place], [place] [phone] PCP - General Family Medicine 05/27/13 [facility] 02/21/23 documented as of this encounter
--- OUTSIDE RECORDS SUMMARY | 2025-01-20 13:49 | XMS_ITS | Clinical Summary ---
Author Organization [employer] Address [address] [place] [address] Care Team Providers Care Loan Representative Name Role Phone Britney Lockhart MD Primary Care Provider [phone] Allergies Active Allergy Reactions Criticality Noted Date Comments Enoxaparin 09/07/2020 Medications alendronate (Fosamax) 35 MG tablet discontinued 04/22/20 18 Active dextran 70-hypromellos e (artificial tears) 0.1-0.3 % ophthalmic solution Apply1-2 drops to affected eye(s) as needed to relieve symptoms 12/19/19 19 Active Blood Pressure kit Active cholecalcifero l (Vitamin D3) 25 MCG (1000 UT) tablet TAKE 1 TABLET BY MOUTH EVERY MORNING 90 tablet 3 12/14/19 23 Active amLODIPine (Norvasc) 5 MG tablet Take 5 mg by mouth in the morning. 05/16/19 24 Active calcitriol (Rocaltrol) 0.25 MCG capsule TAKE 1 CAPSULE BY MOUTH EVERY MORNING (SATURDAY, SATURDAY, AND SATURDAY) 05/16/19 24 Active chlorthalidone (Hygroton) 25 MG tablet Take 25 mg by mouth in the morning. 04/18/20 23 Active ciclopirox (Loprox) 0.77 % cream APPLY TO THE AFFECTED AREA(S) TWICE DAILY DIRECTED 05/16/19 24 Active furosemide (Lasix) 20 MG tablet TAKE 1 TABLET EVERY OTHER DAY IN THE MORNING 05/16/19 24 Active lisinopril 40 MG tablet Take 40 mg by mouth in the morning. 03/20/20 23 Active Aspirin Low Dose 81 MG EC tablet TAKE 1 TABLET BY MOUTH EVERY MORNING 90 tablet 06/14/19 24 Active cyproheptadine (Periactin) 4 MG tablet Take 1/2 tablet by mouth once daily for 1 week, may increase up to 3 times a day as needed. 90 tablet 1 09/04/19 24 Active loperamide (Imodium A-D) 2 MG tablet Take 1-2 tablets (2-4 mg) by mouth if needed in the morning, at noon, and at bedtime for diarrhea. 90 tablet 3 10/29/19 24 Active cholestyramine (Questran) 4 GM/DOSE powder Use 1 packet three times daily with meal as needed for diarrhea 90 packet 11 12/03/19 24 Active Eliquis 2.5 MG tablet TAKE 1 TABLET BY MOUTH TWICE DAILY IN THE MORNING AND IN THE EVENING 60 tablet 11 05/20/19 25 Active Ferrous Sulfate (iron) 325 (65 Fe) MG tabletIndicati ons:Other iron deficiency anemia TAKE 1 TABLET BY MOUTH TWICE DAILY IN THE MORNING AND IN THE EVENING 180 tablet 05/25/19 25 Active Ascorbic Acid (vitamin C) 500 MG tabletIndicati ons:Other iron deficiency anemia TAKE 1 TABLET BY MOUTH TWICE DAILY IN THE MORNING AND IN THE EVENING 180 tablet 05/25/19 25 Active lidocaine (Lidoderm) 5 % patchIndicatio ns:Chronic pain of both shoulders Apply 1 patch topically Once per day. Remove & discard patch within 12 hours or as directed by MD. 60 patch 11 07/26/19 25 Active Acetaminophen Extra Strength 500 MG tablet TAKE 2 TABLETS BY MOUTH EVERY 8 HOURS NEEDED 90 tablet 3 08/12/19 25 Active traMADol (Ultram) 50 MG tabletIndicati ons:Chronic pain of left knee Take 1 tablet (50 mg) by mouth Once daily as needed for severe pain. 30 tablet 1 11/13/19 25 Active allopurinol (Zyloprim) 100 MG tablet TAKE 2 TABLETS BY MOUTH ONCE DAILY IN THE MORNING 60 tablet 11 11/28/19 25 Active cyanocobalamin (Vitamin B-12) 1000 MCG tablet TAKE 1 TABLET BY MOUTH EVERY MORNING 90 tablet 3 12/02/19 25 Active omeprazole (PriLOSEC) [address] capsuleIndicat ions:Gastroeso phageal reflux disease, unspecified whether esophagitis present TAKE 1 CAPSULE BY MOUTH EVERY MORNING BEFORE BREAKFAST 90 capsule 3 12/31/19 25 Active omeprazole (PriLOSEC) [address] capsuleIndicat ions:Gastroeso phageal reflux disease, unspecified whether esophagitis present TAKE 1 TABLET BY MOUTH EVERY MORNING BEFORE BREAKFAST 90 capsule 3 11/20/19 24 025 Discontinued Active Problems Problem Noted Date Diagnosed Date Elevated erythrocyte sedimentation rate 11/27/19 25 Assessment & Plan (11/26/2024 10:00 AM EDT): - referred to dishtank operator for an evaluation for PMR; patient was seen for gout - called for a new appointment to evaluate for bilateral shoulder pain, weakness, and possible PMR Pulmonary hypertension 11/26/2024 Assessment & Plan (11/26/2024 10:05 AM EDT): - mild - last echo in October 2024 Gout 07/23/2024 Assessment & Plan (07/25/2024 7:34 AM EDT): - evaluated by dishtank operator - continue low dose allopurinol Chronic pain of both shoulders 10/29/2023 Assessment & Plan (07/25/2024 7:32 AM EDT): -DDx includes osteoarthritis, gout, rotator cuff tendinopathy, and PMR -Elevated ESR and CRP in a setting of iron deficiency anemia -Referred to rheumatology for further evaluation of possible PMR; advised to reschedule appointment since she was not evaluated for PMR Assessment & Plan (02/18/2024 5:29 AM EDT): -DDx includes osteoarthritis, gout, rotator cuff tendinopathy, and PMR -Elevated ESR and CRP in a setting of iron deficiency anemia -Referred to rheumatology for further evaluation of possible PMR; advised to reschedule appointment Assessment & Plan (10/30/2023 12:16 PM EDT): DDx includes osteoarthritis, gout, rotator cuff tendinopathy, and PMR Recheck ESR and CRP Refer to dishtank operator Weight loss 09/03/2023 Assessment & Plan (07/25/2024 7:33 AM EDT): - progressive, patient reports poor appetite - encouraged to drink nutritional supplement 3x a day - patient wanted to try appetite stimulant, and was prescribed cyproheptadine prn - CT scan of abdomen and pelvis in November 2023 was remarkable for no malignancy or significant abnormality. - stable weight at this time; continue nutritional supplement Assessment & Plan (02/18/2024 5:31 AM EDT): - progressive, patient reports poor appetite - encouraged to drink nutritional supplement 3x a day - patient wanted to try appetite stimulant, and was prescribed cyproheptadine prn - CT scan of abdomen and pelvis in November 2023 was remarkable for no malignancy or significant abnormality. - check the status of bone scan (since abd/pelvis CT did not show malignancy, consider follow up X-ray to ensure the stability of the lucent lesion). Assessment & Plan (10/30/2023 12:17 PM EDT): - progressive, patient reports poor appetite - encouraged to drink nutritional supplement 3x a day - patient wanted to try appetite stimulant, and was prescribed cyproheptadine prn - check the status of CT scan of abdomen and pelvis - check the status of PET scan Assessment & Plan (09/03/2023 4:32 PM EDT): - progressive, patient reports poor appetite - encouraged to drink nutritional supplement 3x a day - patient would like to try appetite stimulant, will prescribe cyproheptadine prn - will evaluate with CT scan of abdomen and pelvis Tricuspid valve regurgitation 06/04/2023 Assessment & Plan (02/18/2024 5:24 AM EDT): - most recent TTE in Jan 2023- moderate tricuspid regurgitation, moderate aortic regurgitation mild - mod pulmonary HTN. - repeat TTE in 1 year per cardiology Assessment & Plan (06/07/2023 6:34 AM EST): most recent TTE in Jan 2023- moderate tricuspid regurgitation, moderate aortic regurgitation mild - mod pulmonary HTN. repeat TTE in 1 year History of DVT (deep vein thrombosis) 06/04/2023 Assessment & Plan (02/18/2024 5:37 AM EDT): - x 2 - recommended lifelong anticoagulation by machinist automotive - previously on warfarin, changed to apixaban Assessment & Plan (10/30/2023 12:18 PM EDT): - x 2 - recommended lifelong anticoagulation by machinist automotive Assessment & Plan (09/03/2023 4:34 PM EDT): - x 2 - recommended lifelong anticoagulation by machinist automotive Assessment & Plan (06/04/2023 6:01 AM EST): - x 2 - recommended lifelong anticoagulation by machinist automotive Chronic anticoagulation 01/17/2023 Assessment & Plan (11/26/2024 9:56 AM EDT): -Lifelong anticoagulation with Coumadin was recommended by machinist automotive due to Hx 2 DVTs -previously taking warfarin, switched to apixaban in May 2023 -continue apixaban 2.5 mg bid Assessment & Plan (07/24/2024 2:04 AM EDT): -Lifelong anticoagulation with Coumadin was recommended by machinist automotive due to Hx 2 DVTs -previously taking warfarin, switched to apixaban in May 2023 -continue apixaban 2.5 mg bid Assessment & Plan (10/30/2023 12:19 PM EDT): -Lifelong anticoagulation with Coumadin was recommended by machinist automotive due to Hx 2 DVTs -previously taking warfarin, switched to apixaban in May 2023 -continue apixaban 2.5 mg bid Assessment & Plan (09/03/2023 4:33 PM EDT): -Lifelong anticoagulation with Coumadin was recommended by machinist automotive due to Hx 2 DVTs -previously taking warfarin -started apixaban 2.5 mg bid since MAY 2023 Assessment & Plan (06/07/2023 6:42 AM EST): -Lifelong anticoagulation with Coumadin was recommended by machinist automotive due to Hx 2 DVTs -warfarin dosing managed by [facility] -patient is interested in switching to DOAC. -consider apixaban 2.5 mg bid due to her age and CKD. Start when INR < 2.0 after discontinuing warfarin. Ascending aorta dilatation 12/06/2022 Assessment & Plan (11/26/2024 9:55 AM EDT): - most recent TTE in October 2024, followed by [facility] Assessment & Plan (07/24/2024 2:03 AM EDT): - most recent TTE in Jan 2023 reported normal size Assessment & Plan (02/18/2024 5:24 AM EDT): - most recent TTE in Jan 2023 reported normal size Assessment & Plan (06/07/2023 6:33 AM EST): - most recent TTE in Jan 2023 reported normal size Stage 4 chronic kidney disease 06/26/2019 Assessment & Plan (11/26/2024 9:56 AM EDT): - Following with Dr. Hawkins - Baseline creatinine 1.2-1.3 - Court Crier: MALGORZATA Ayers, last seen in Feb 2024, upcoming appointment - Continue furosemide 20mg daily (previously every other day, but recent instruction is daily) - Continue chlorthalidone and lisinopril with caution. - Continue vitamin D 2000 units daily. Assessment & Plan (07/25/2024 7:32 AM EDT): - Following with Dr. Hawkins - Baseline creatinine 1.2-1.3 - Court Crier: MALGORZATA Ayers, last seen in Feb 2024, upcoming appointment in August 2023 - Continue furosemide 20mg daily (previously every other day, but recent instruction is daily) - Continue chlorthalidone and lisinopril with caution. - Continue vitamin D 2000 units daily. Assessment & Plan (02/18/2024 5:26 AM EDT): - Following with Dr. Hawkins - Baseline creatinine 1.2-1.3 - Court Crier: MALGORZATA Ayers, last seen in Jun 2023, upcoming appointment in Feb 2024 - Continue furosemide 20mg every other day, since July 2017. - Continue chlorthalidone and lisinopril with caution. - Continue vitamin D 2000 units daily. Assessment & Plan (10/29/2023 6:52 PM EDT): - Co-managed with Dr. Hawkins - Baseline creatinine 1.2-1.3 - Court Crier: MALGORZATA Ayers, last seen in Jun 2023 - Continue furosemide 20mg every other day, since July 2017. - Continue chlorthalidone and lisinopril with caution. - Continue vitamin D 2000 units daily. Assessment & Plan (09/03/2023 4:30 PM EDT): - Co-managed with Dr. Hawkins - Baseline creatinine 1.2-1.3 - Court Crier: MALGORZATA Ayers, last seen in Jun 2023 - Continue furosemide 20mg every other day, since July 2017. - Continue chlorthalidone and lisinopril with caution. - Continue vitamin D 2000 units daily. Assessment & Plan (06/07/2023 6:35 AM EST): - Co-managed with Dr. Hawkins - Baseline creatinine 1.2-1.3 - Court Crier: MALGORZATA Ayers, last seen in Jan 2023 - Continue furosemide 20mg every other day, since July 2017. - Continue chlorthalidone and lisinopril with caution. - Continue vitamin D 2000 units daily. Osteopenia 10/20/2015 Assessment & Plan (02/18/2024 5:38 AM EDT): - previously took alendronate 70 mg weekly. Discontinued due to CKD, then restarted at lower dose 35 mg weekly - weight bearing exercise - encourage adequate calcium and vitamin D intake Assessment & Plan (10/29/2023 6:53 PM EDT): - previously took alendronate, but discontinued due to CKD - weight bearing exercise - encourage adequate calcium and vitamin D intake Assessment & Plan (06/07/2023 6:40 AM EST): - previously took alendronate, but discontinued due to CKD - weight bearing exercise - encourage adequate calcium and vitamin D intake Primary osteoarthritis involving multiple joints 03/15/2015 Assessment & Plan (11/26/2024 9:59 AM EDT): -Conservative management with capsaicin and APAP. -She has tried tramadol once, and disliked it. -Lidocaine patch was denied by her insurance -Pt was interested in getting motorized wheelchair/scooter. -Patient now requests a walker without wheels -Judicious use of tramadol Assessment & Plan (07/24/2024 2:04 AM EDT): -Co-managed with rheumatalogist, seen in July 2021 -Conservative management with capsaicin and APAP. -She has tried tramadol once, and disliked it. -Lidocaine patch was denied by her insurance -Pt was interested in getting motorized wheelchair/scooter. Assessment & Plan (02/18/2024 5:27 AM EDT): -Co-managed with rheumatalogist, seen in July 2021 -Conservative management with capsaicin and APAP. -She has tried tramadol once, and disliked it. -Lidocaine patch was denied by her insurance -Pt was interested in getting motorized wheelchair/scooter. Assessment & Plan (06/07/2023 6:41 AM EST): -Co-managed with rheumatalogist, seen in July 2021 -Conservative management with capsaicin and APAP. -She has tried tramadol once, and disliked it. -Pt was interested in getting motorized wheelchair/scooter. Chronic diarrhea 03/15/2015 Assessment & Plan (10/29/2023 6:52 PM EDT): -continue judicious use of loperamide Assessment & Plan (09/03/2023 4:29 PM EDT): -continue judicious use of loperamide Assessment & Plan (06/07/2023 6:35 AM EST): -continue judicious use of loperamide Essential hypertension 03/15/2015 Assessment & Plan (11/26/2024 9:51 AM EDT): -Goal BP < 130 per ACC/AHA guideline (Treatment threshold >=130) - Continue lisinopril 40 mg daily. - Continue chlorthalidone 25 mg daily. - Continue amlodipine 5 mg daily - Continue furosemide 20 mg daily (previously every other day), prescribed by pro shop attendant - Treatment history: Discontinued metoprolol, nifedipine -Continue working on lifestyle modifications -Recommended self-monitoring BP. Assessment & Plan (07/25/2024 7:34 AM EDT): -Goal BP < per JNC-8 and < per ACC/AHA guideline (Treatment threshold >= ) - Goal BP < 140/90. Usually within acceptable range - Continue lisinopril 40 mg daily. - Continue chlorthalidone 25 mg daily. - Continue amlodipine 5 mg daily - Continue furosemide 20 mg daily (previously every other day), prescribed by pro shop attendant - Treatment history: Discontinued metoprolol, nifedipine -Continue working on lifestyle modifications -Recommended self-monitoring BP. -Consider adding parameter for BP meds since her BP has been low-normal. -Follow up in 3 mo, sooner if any problem arises Assessment & Plan (02/18/2024 5:23 AM EDT): -Goal BP < per JNC-8 and < per ACC/AHA guideline (Treatment threshold >= ) - Goal BP < 140/90. Usually within acceptable range - Continue lisinopril 40 mg daily. - Continue chlorthalidone 25 mg daily. - Continue amlodipine 5 mg daily - Continue furosemide 20 mg every other day - Treatment history: Discontinued metoprolol, nifedipine -Continue working on lifestyle modifications -Recommended self-monitoring BP. -Consider adding parameter for BP meds since her BP has been low-normal. -Follow up in 3 mo, sooner if any problem arises Assessment & Plan (10/30/2023 12:14 PM EDT): -Goal BP < per JNC-8 and < per ACC/AHA guideline (Treatment threshold >= ) - Goal BP < 140/90. Usually within acceptable range - Continue lisinopril 40 mg daily. - Continue chlorthalidone 25 mg daily. - Continue amlodipine 5 mg daily - Continue furosemide 20 mg every other day - Treatment history: Discontinued metoprolol, nifedipine -Continue working on lifestyle modifications -Recommended self-monitoring BP. -Consider adding parameter for BP meds since her BP has been low-normal. -Follow up in 3 mo, sooner if any problem arises Assessment & Plan (09/03/2023 4:29 PM EDT): -Goal BP < per JNC-8 and < per ACC/AHA guideline (Treatment threshold >= ) - Goal BP < 140/90. Usually within acceptable range - Continue lisinopril 40 mg daily. - Continue chlorthalidone 25 mg daily. - Continue amlodipine 5 mg daily - Continue furosemide 20 mg every other day - Discontinued metoprolol, nifedipine -Continue working on lifestyle modifications -Recommended self-monitoring BP. -Follow up in 3-6 mo, sooner if any problem arises Assessment & Plan (06/07/2023 6:39 AM EST): -Goal BP < per JNC-8 and < per ACC/AHA guideline (Treatment threshold >= ) - Goal BP < 140/90. Usually within acceptable range - Continue lisinopril 40 mg daily. - Continue chlorthalidone 25 mg daily. - Continue amlodipine 5 mg daily - Continue furosemide 20 mg every other day - Discontinued metoprolol, nifedipine -Continue working on lifestyle modifications -Recommended self-monitoring BP. -Follow up in 3-6 mo, sooner if any problem arises Peripheral venous insufficiency 07/22/2014 Assessment & Plan (11/26/2024 10:01 AM EDT): -prescribed compression stockings -patient wears occasionally - leg elevation, low sodium-diet - patient requests either a new recliner or repair of current recliner Assessment & Plan (10/29/2023 6:51 PM EDT): -prescribed compression stockings -patient wears occasionally - leg elevation, low sodium-diet Assessment & Plan (06/07/2023 6:34 AM EST): -prescribed compression stockings -patient wears occasionally - leg elevation, low sodium-diet Obesity 07/22/2014 Aortic valve regurgitation 08/30/2013 Assessment & Plan (11/26/2024 9:55 AM EDT): -Pharmacist Per Diem: AR[place]ENTINA, seen in October 2024 -Echo on 10/20/24: Noraml LVEF 60-65%; Grade 2 diastolic dysfunction with elevated LAP; mild posterior MV thickening; mild mitral calcification; mild tricuspid regurgitation; mild pulmonary hypertension; mildly calcified AV; moderate aortic regurgitation Assessment & Plan (07/24/2024 2:03 AM EDT): -Pharmacist Per Diem: ARGENTINA, seen in July 2023 -Last TTE in Jan 2023 LVEF 60-65%, aortic sclerosis without stenosis, moderate aortic regurgitation, moderate tricuspid regurgitation, mild mitral regurgitation, mild pulmonary HTN. -follow up in 1 year per patient's family Assessment & Plan (02/18/2024 5:24 AM EDT): -Pharmacist Per Diem: ARGENTINA, seen in July 2023 -Last TTE in Jan 2023 LVEF 60-65%, aortic sclerosis without stenosis, moderate aortic regurgitation, moderate tricuspid regurgitation, mild mitral regurgitation, mild pulmonary HTN. -follow up in 1 year per patient's family Assessment & Plan (09/03/2023 4:28 PM EDT): -Pharmacist Per Diem: ARGENTINA, seen in July 2023 -Last TTE in Jan 2023 LVEF 60-65%, aortic sclerosis without stenosis, moderate aortic regurgitation, moderate tricuspid regurgitation, mild mitral regurgitation, mild pulmonary HTN. -follow up in 1 year per patient's family Assessment & Plan (06/07/2023 6:31 AM EST): -Pharmacist Per Diem: ARGENTINA, seen in Jan 2023 -Last TTE in Jan 2023 LVEF 60-65%, aortic sclerosis without stenosis, moderate aortic regurgitation, moderate tricuspid regurgitation, mild mitral regurgitation, mild pulmonary HTN. Peripheral vascular disease 01/10/2012 Anemia 01/10/2012 Assessment & Plan (11/26/2024 9:57 AM EDT): - In a setting of CKD4 - on apixaban for recurrent DVT - Referred back to machinist automotive, upcoming appointment - Following with pro shop attendant Assessment & Plan (07/24/2024 2:04 AM EDT): - In a setting of CKD4 - on apixaban for recurrent DVT - Referred back to machinist automotive, upcoming appointment - Following with pro shop attendant Assessment & Plan (02/18/2024 5:36 AM EDT): - In a setting of CKD4 - on apixaban for recurrent DVT - Referred back to machinist automotive, upcoming appointment - Following with pro shop attendant Assessment & Plan (10/30/2023 12:18 PM EDT): Ordering lab work for re-evaluation of anemia. Refer to machinist automotive Ferritin will likely be elevated due to her current condition Cobalamin deficiency 01/10/2012 Osteoarthritis 01/10/2012 Assessment & Plan (11/26/2024 9:58 AM EDT): - continue judicious use of APAP - add tramadol - write a script for a walker Assessment & Plan (06/07/2023 6:40 AM EST): - continue judicious use of APAP Depressive disorder 10/24/2011 Assessment & Plan (02/18/2024 5:37 AM EDT): - patient states the source of her support is her [place] and declines counseling Gastroesophageal reflux disease without esophagi tis 10/24/2011 Encounters Date Type Department Care Team Description 01/20/2025 Orders Only [facility] External Provider, [facility] 12/30/2024 Refill [facility] DI[facility]/NUTRITION [address] [place] [address] Britney Lockhart MD Gastroesophageal reflux disease, unspecified whether esophagitis present 11/30/2024 Refill [facility] DIABETES/NUTRITION [address] [place] [address] Britney Lockhart MD 11/27/2024 Telephone [facility] MEDICINE [address] [place] [address] Britney Lockhart MD Durable Medical Equipment (DME Order: Walker (No Wheels), PLR repairs) 11/27/2024 Refill [facility] MED[facility] [address] [place] [address] Britney Lockhart MD 11/12/2024 11:00 AM EDT Office Visit [facility] [address] [place] [address] Britney Lockhart MD Chronic pain of left knee (Primary Dx); Essential hypertension; Aortic valve insufficiency, etiology of cardiac valve disease unspecified; Ascending aorta dilatation (CMS/HCC); Chronic anticoagulation; Stage 4 chronic kidney disease (CMS/HCC); Anemia, unspecified type; Primary osteoarthritis involving multiple joints; Primary osteoarthritis of both knees; Chronic pain of both shoulders; Elevated erythrocyte sedimentation rate; Peripheral venous insufficiency; Pulmonary hypertension (CMS/HCC); Chronic gout of multiple sites, unspecified cause 11/12/2024 Travel 11/11/2024 Telephone [facility] [address] [place] [phone] Britney Lockhart MD CHART PREP 11/06/2024 Patient Outreach [facility] [address] [place], [place] [phone] Britney Lockhart MD Pre-visit Planning (SDOH was already completed) 11/06/2024 Patient Outreach [facility] [address] [place] [address] Britney Lockhart MD from Last 3 Months Immunizations Immunization Administration Dates Next Due Influenza High-dose Quadriva lent Preservative Free 03/15/2021,05/23/2020 Influenza injectable quadriv alent IIV4 with preservative 02/07/2017,02/06/2016 Influenza injectable quadriv alent preservative free 06/04/2023,03/18/2020,03/15/2015 Influenza, High Dose Seasona l, Preservative Free 02/10/2024,01/28/2019,03/03/2018 Influenza, IIV3, injectable 04/20/2014 Influenza, Split (incl. estefanía fied surface antigen) 01/28/2013,01/10/2012 Pneumococcal Conjugate PCV 13 10/03/2016 Pneumococcal Polysaccharide PPSV23 12/23/2014, TD (adult), 2 Lf tetanus tox oid, preservative free, adsorbed 11/21/2005 Tdap 02/10/2024,08/03/2013 Zoster, live 10/03/2016 Social History Tobacco Use Types Packs/Day Years Used Date Smoking Tobacco: Former Cigarettes Passive Smoke Exposure: Never Smokeless Tobacco: Never Tobacco Cessation:Counseling Given: Not Answered Alcohol Answer Date Recorded Frequency of Alcohol Consumption Not on file 10/29/2023 Average Number of Drinks Not on file 024 Frequency of Binge Drinking Not on file 10/11 Score 0 10/29/2023 Depression Answer Date Recorded Patient Health Questionnaire-9 Score 6 11/12/2024 Patient Health Questionnaire-9 Score 6 11/12/2024 Last PHQ-9: Questionnaire Data Not on file 0 11/12/2024 Housing Stability Answer Date Recorded What is your housing situation today? I have stiven [place] 05/29/[address] you li ve. Do you have problems with any of the following? Pests such as bugs, ants, or mice 05/29/2024 Food Insecurity Answer Date Recorded Within the past 12 months, y ou worried that your food would run out before you got money to buy more: Sometimes True 2024 Within the past 12 months,th e food you bought just didn't last and you didn't have enough money to get more: Sometimes True 05/29/2024 Transportation Answer Date Recorded In the past [...] Answer Date Recorded Patient Health Questionnaire-2 Score 3 11/12/2024 Internet Access Answer Date Recorded Internet Access Q1 Yes 05/29/2024 Internet Access Q2 Not on file 05/29/2024 Comments Unknown Sex and Gender Information Value Date Recorded Sex Assigned at Female 03/12/2022 10:14 AM EDT Legal Sex Female 10:14 AM EDT Gender Identity Female 03/12/2022 10:14 AM EDT Sexual Orientation Straight 03/12/2022 10 :14 AM EDT Last Filed Vital Signs Vital Sign Reading Time Taken Comments Blood Pressure 140/76 11/12/2024 11:11 AM EDT Pulse 50 11/12/2024 11:11 AM EDT Temperature 36.3 C (97.3 F) 11/12/2024 11:11 AM EDT Respiratory Rate 13 11/12/2024 11:1 1 AM EDT Oxygen Saturation 97% 11/12/2024 11: 11 AM EDT Inhaled Oxygen Concentration - - Weight 73.8 kg (162 lb 12.8 oz) 025 11:11 AM EDT Height 165.1 cm (5' 5 ) 11/12/2024 11:1 1 AM EDT Body Mass Index 27.09 11/12/2024 11:11 AM EDT Plan of Treatment Health Maintenance Due Date Last Done Comments RSV Patients and Patients Aged 60 years or older (1 - 1-dose 75+ series) 2011 Zoster Vaccines (2 of 3) 11/28/2016 10/03/2016 COVID-19 Vaccine ( - 2023- season) 2025 Influenza Vaccine (#1) 2025 , 06/04/2023, 03/15/2021, Additional history exists SDOH Screening 05/29/2025 05/29/2024 Alcohol/Substance Use Screening 11/12/2025 11/12/2024 Depression Screening 11/12/2025 11/12/2024, 11/13/19 25 Tobacco Screening 11/26/2025 11/26/2024 Lipid Panel 06/14/2028 06/14/2023, 11/11, 12/07/2021, Additional history exists DTaP/Tdap/Td Vaccines (3 - Td or Tdap) 02/09/2034 02/10/2024, 08/03/2013, 11/21/2005 Pneumococcal Vaccine: 50+ Years Completed 10/03/2016, 12/23/2014, 08/03/2013 HIB Vaccines Aged Out No longer eligi ble based on patient's age to complete this topic HPV Vaccines Aged Out No longer eligi ble based on patient's age to complete this topic Hepatitis A Vaccines Aged Out No long er eligible based on patient's age to complete this topic Hepatitis B Vaccines Aged Out No long er eligible based on patient's age to complete this topic IPV Vaccines Aged Out No longer eligi ble based on patient's age to complete this topic Meningococcal B Vaccine Aged Out No l onger eligible based on patient's age to complete this topic Meningococcal Vaccine Aged Out No kwasi karel eligible based on patient's age to complete this topic RSV under 20 months Aged Out No longe r eligible based on patient's age to complete this topic Rotavirus Vaccines Aged Out No longer eligible based on patient's age to complete this topic Procedures Procedure Name Priority Date/Time Associated Diagnosis Comments HIGH SENSITIVITY TROPONIN I Routine 01/20/2025 12:47 PM EDT XR CHEST 1 VIEW Routine 01/20/2025 11:25 AM EDT LIPID PANEL WITH REFLEX TO DIRECT LDL Routine 06/14/2023 9:40 AM EST Essential hypertension from Last 3 Months or Most Recently Relevant to Health Maintenance Results * High Sensitivity Troponin I (01/20/2025 12:47 PM EDT) TROPONIN I HIGH SENSITIVITY 13.4 <3.5 - 17.0 ng/L [facility] Comment:The Atkins high sens itivity Troponin-I results should beused in conjunction with other diagnostic information suchas ECG, clinical observations and information, and patientsymptoms to aid in the diagnosis of [place]. 01/20/2025 12:4 7 PM EDT 01/20/2025 12:51 PM EDT us Generic External Data Provider LAB BLOOD ORDERAB LES Final Result [facility] [address] [place] [phone] * XR Chest 1 View (01/20/2025 11:25 AM EDT) Anatomical Region Laterality Modality Chest Radiographic Suly ging 01/20/2025 11:2 5 AM EDT Narrative 01/20/2025 11:44 AM EDT [address] [address] XRay Report Signed Patient: Abby Garsia MR#: [id number] 653 : 1935 Acct:[id number] Age/Sex: 89 / F ADM Date: 01/20/25 Loc: HO.ED Attending Dr: Ordering Physician: Lynne Cruz Date of Service: 01/20/25 Procedure(s): XR chest 1V Accession Number(s): [id number] cc: Lynne Cruz; Britney Lockhart MD Reason for Exam: SOB, weakness EXAMINATION: XR CHEST 1 VIEW HISTORY: SOB, weakness COMPARISON: Comparison is made with the prior examination dated 03/18/2020. FINDINGS: A single AP portable view of the chest performed at 11:25 AM is submitted. The lungs are expanded and clear. There is no pleural effusion, pneumothorax, or pulmonary vascular congestion. The heart is normal in size. The aorta is calcified. There is degenerative disc disease of the spine. There are severe degenerative changes involving both shoulders. XR/XR chest 1V IMPRESSION: No acute cardiopulmonary abnormality. Electronically signed by: Jatinder Cho MD 01/20/2025 11:41 AM EDT Dictated By: Jatinder Cho MD Signed By: <Electronically signed by Jatinder Cho MD in OV> 01/20/25 1141 DD/ 1125 TD/TT: 01/20/25 1130 Automotive Consultant: Procedure Note Donotuseinterpreter, Image - 01/20/[address] [address] XRay Report Signed Patient: Abby GarsiaMR#: [id number] 653 : 1935cct:[id number] Age/Sex: 89 / FADM Date: 01/20/25 Loc: HO.ED Attending Dr: Ordering Physician: Lynne Cruz Date of Service: 01/20/25 Procedure(s): XR chest 1V Accession Number(s): [id number] cc: Lynne Cruz; Britney Lockhart MD Reason for Exam: SOB, weakness EXAMINATION: XR CHEST 1 VIEW HISTORY: SOB, weakness COMPARISON: Comparison is made with the prior examination dated 03/18/2020. FINDINGS: A single AP portable view of the chest performed at 11:25 AM is submitted. The lungs are expanded and clear. There is no pleural effusion, pneumothorax, or pulmonary vascular congestion. The heart is normal in size. The aorta is calcified. There is degenerative disc disease of the spine. There are severe degenerative changes involving both shoulders. XR/XR chest 1V IMPRESSION: No acute cardiopulmonary abnormality. Electronically signed by: Jatinder Cho MD 01/20/2025 11:41 AM EDT Dictated By: Jatinder Cho MD Signed By: <Electronically signed by Jatinder Cho MD in OV> 01/20/25 1141 DD/ 1125 TD/TT: 01/20/25 1130 Automotive Consultant: [facility] External Provider IMG XR PROCEDURES Final Result * (ABNORMAL) Lipid Panel with Reflex to Direct LDL (06/14/2023 9:40 AM EST) Triglycerides 115 <150 mg/dL [facility] Comment:Desirable Triglyceri de: less than 150 mg/dLBorderline High Triglyceride 150-199 mg/dLHigh Triglyceride: 200-499 mg/dLVery High Triglyceride: greater than or equal to 5OO mg/dL Cholesterol 145 <200 mg/dL [facility] Comment:Desirable Cholestero l: less than 200 mg/dLBorderline High Cholesterol: 200-239 mg/dLHigh Cholesterol: greater than 239 mg/dL LDL Cholesterol Calculated 88 <100 mg/dL [facility] Comment:Desirable LDL: less than 100 mg/dLNear Optimal/Above Optimal LDL: 110- 129 mg/dLBorderline High LDL: 130-159 mg/dLHigh LDL: 160-189 mg/dLVery High LDL: greater than or equal to 190 mg/dL HDL Cholesterol 34(L) >40 mg/dL [facility] Comment:Desirable HDL: great er than 40 mg/dL Note: This HDL assay may give artificially low results in patients with liver disease. Blood 06/14/2023 9:40 AM EST 06/14/2023 11:31 AM EST Britney Lockhart MD LAB BLOOD ORDERABLES Final Resul t [facility] [address] [place] [phone] from Last 3 Months or Most Recently Relevant to Health Maintenance Insurance [facility] [employer] (HMO D-SNP) PAULA MENDEZ [id number] Care Teams Loan Representative Relationship Specialty Start Date End Date Britney Lockhart MD [address] [place] [phone] PCP - General Family Medicine 05/27/13 [facility] 02/21/23
--- OUTSIDE RECORDS SUMMARY | 2025-01-20 13:49 | XMS_ITS | Encounter Summary ---
Author Organization [employer] Address [address] [facility] 7t [place] [address] Care Team Providers Care Roller Name Role Phone Britney Lockhart MD Primary Care Provider [phone] Encounter Details Date Type Department Care Team ([facility] st Contact Info) Description 10/16/2023 Orders Only [facility] MEDICINE [address] [place], [place] [phone] Britney Lockhart MD [address] [place], [place] [phone] Bone lesion (Primary Dx); Weight loss; Bone pain; Stage 4 chronic kidney disease (CMS/HCC); Anemia, unspecified type Social History Tobacco Use Types Packs/Day Years Used Date Smoking Tobacco: Former Cigarettes Passive Smoke Exposure: Never Smokeless Tobacco: Never Depression Answer Date Recorded Patient Health Questionnaire-9 [...] documented as of this encounter Visit Diagnoses Diagnosis Bone lesion- Primary Disorder of bone and cartilage, unspecified Weight loss Loss of weight Bone pain Disorder of bone and cartilage, unspecified Stage 4 chronic kidney disease (CMS/HCC) Anemia, unspecified type documented in this encounter Additional Health Concerns Assessment Noted Time PHQ-9 Depression Total Score: 5 06/04/19 24 1:45 PM EST documented as of this encounter Care Teams Roller Relationship Specialty Start Date End Date Britney Lockhart MD [address] [place] [address] PCP - General Family Medicine 05/27/13 [facility] 02/21/23 documented as of this encounter
--- OUTSIDE RECORDS SUMMARY | 2025-01-20 13:49 | XMS_ITS | Encounter Summary ---
Author Organization [facility] Address [address] [place] [address] Phone Care Team Providers Care Counter Attendant Name Role Phone Britney Lockhart MD Primary Care Provider [phone] Encounter Details Date Type Department Care Team (Late Contact Info) Description 08/13/2023 Documentation Only [facility] [address] [place] [address] Janet Freitas [address] [place] [phone] Social History Tobacco Use Types Packs/Day [...] Visit [facility] [place] [address] Elizabeth EL[address]ETH [address] [place] [phone] Tyler Hawkins MD [address] [place] [address] [place] [address] documented as of this encounter Visit Diagnoses Not on filedocumented in this encounter Care Teams Counter Attendant Relationship Specialty Start Date End Date Britney Lockhart MD PCP - General 03/17/19 documented as of this encounter
--- OUTSIDE RECORDS SUMMARY | 2025-01-20 13:49 | XMS_ITS | Encounter Summary ---
Author Organization [employer] Address [address] [facility] 7t [place] [address] Care Team Providers Care Director Of Strategic Initiatives Name Role Phone Britney Lockhart MD Primary Care Provider [phone] Encounter Details Date Type Department Care Team (Late st Contact Info) Description 01/20/2025 Orders Only [facility] External Provider, [facility] Social History Tobacco Use Types Packs/Day Years [...] on file documented as of this encounter Procedures Procedure Name Priority Date/Time Associated Diagnosis Comments HIGH SENSITIVITY TROPONIN I Routine 01/20/2025 12:47 PM EDT XR CHEST 1 VIEW Routine 01/20/2025 11:25 AM EDT documented in this encounter Results * High Sensitivity Troponin I (01/20/2025 12:47 PM EDT) TROPONIN I HIGH SENSITIVITY 13.4 <3.5 - 17.0 ng/L [facility] Comment:The Atkins high sens itivity Troponin-I results should beused in conjunction with other diagnostic information suchas ECG, clinical observations and information, and patientsymptoms to aid in the diagnosis of [place]. 01/20/2025 12:4 7 PM EDT 01/20/2025 12:51 PM EDT us Generic External Data Provider LAB BLOOD ORDERAB LES Final Result [facility] [address] [place] [phone] * XR Chest 1 View (01/20/2025 11:25 AM EDT) Anatomical Region Laterality Modality Chest Radiographic Suly ging 01/20/2025 11:2 5 AM EDT Narrative 01/20/2025 11:44 AM EDT [address] [address] XRay Report Signed Patient: Abby Garsia MR#: [id number] 653 : 1935 Acct:[id number] Age/Sex: 89 / F ADM Date: 01/20/25 Loc: .ED Attending Dr: Ordering Physician: Lynne Cruz Date of Service: 01/20/25 Procedure(s): XR chest 1V Accession Number(s): [id number] cc: Lynne Cruz; Britney Lockhart MD Reason [...] 01/20/25 1141 DD/ 1125 TD/TT: 01/20/25 1130 Public Information Specialist: Procedure Note Donotuseinterpreter, Image - 01/20/[address] [address] XRay Report Signed Patient: Abby GarsiaMR#: [id number] 653 : 1935cct:[id number] Age/Sex: 89 / FADM Date: 01/20/25 Loc: .ED Attending Dr: Ordering Physician: Lynne Cruz Date of Service: 01/20/25 Procedure(s): XR chest 1V Accession Number(s): [id number] cc: Lynne Cruz; Britney Lockhart MD Reason [...] Jatinder Cho MD 01/20/2025 11:41 AM EDT RP Dictated By: Jatinder Cho MD Signed By: <Electronically signed by Jatinder Cho MD in OV> 01/20/25 1141 DD/ 1125 TD/TT: 01/20/25 1130 Public Information Specialist: [facility] External Provider IMG XR PROCEDURES Final Result documented in this encounter Visit Diagnoses Not on filedocumented in this encounter Additional Health Concerns Assessment Noted Time PHQ-9 Depression Total Score: 6 11/13/19 25 11:13 AM EDT documented as of this encounter Care Teams Director Of Strategic Initiatives Relationship Specialty Start Date End Date Britney Lockhart MD [address] [place] [phone] PCP - General Family Medicine 05/27/13 [facility] 02/21/23 documented as of this encounter
--- OUTSIDE RECORDS SUMMARY | 2025-01-20 13:49 | XMS_ITS | Encounter Summary ---
Author Organization [facility] Address [address] [place] [address] Phone Care Team Providers Care Atm Manager Name Role Phone Britney Lockhart MD Primary Care Provider [phone] Encounter Details Date Type Department Care Team (Late Contact Info) Description 10/12/2024 Orders Only [facility] Dr Elizabeth [address] [place] [address] Janet Freitas [address] [place] [phone] Social History Tobacco Use Types Packs/Day [...] Visit [facility] [address] [place] [address] Tyler Hawkins MD [address] [facility] [place] [address] documented as of this encounter Visit Diagnoses Not on filedocumented in this encounter Care Teams Atm Manager Relationship Specialty Start Date End Date Britney Lockhart MD PCP - General 03/17/19 documented as of this encounter
--- OUTSIDE RECORDS SUMMARY | 2025-01-20 13:49 | XMS_ITS | Encounter Summary ---
Author Organization [facility] [place], Address [address] [place] [address] Phone Care Team Providers Care Frame Stripper Name Role Phone Britney Lockhart MD Primary Care Provider [phone] Encounter Details Date Type Department Care Team (Late Contact Info) Description 02/21/2022 Documentation Only [facility] [address] [place] [address] Omar Melchor PA [address] [place] [address] [place] [address] Social History Tobacco Use Types Packs/Day Years [...] Encounters Date Type Department Care Team (Late Contact Info) Description 03/26/2025 11:15 AM EST Office Visit [facility] [address] Elizabeth ELIZABETH [address] [place] [phone] Tyler Hawkins MD [address] [place] [address] [place] [address] documented as of this encounter Visit Diagnoses Not on filedocumented in this encounter Care Teams Frame Stripper Relationship Specialty Start Date End Date Britney Lockhart MD PCP - General 03/17/19 documented as of this encounter
--- OUTSIDE RECORDS SUMMARY | 2025-01-20 13:49 | XMS_ITS | Encounter Summary ---
Author Organization [employer] Address [address] [place] [address] 7t [place] [address] Care Team Providers Care Crane Rigger Name Role Phone Britney Lockhart MD Primary Care Provider [phone] Encounter Details Date Type Department Care Team ([facility] st Contact Info) Description 06/06/2022 Orders Only [facility] MEDICINE [address] [place] [address] Enriqueta Gonsalves LPN Social History Tobacco Use Types Packs/Day [...] on filedocumented in this encounter Care Teams Crane Rigger Relationship Specialty Start Date End Date Britney Lockhart MD [address] [place] [address] PCP - General Family Medicine 05/27/13 [facility] 02/21/23 documented as of this encounter
--- OUTSIDE RECORDS SUMMARY | 2025-01-20 13:49 | XMS_ITS | Encounter Summary ---
Author Organization [facility] Address [address] [place] [address] Phone Care Team Providers Care Technical Services Librarian Name Role Phone Britney Lockhart MD Primary Care Provider [phone] Encounter Details Date Type Department Care Team (Late Contact Info) Description 08/13/2023 Documentation Only [facility] [address] [place] [address] Janet Freitas [address] [place] [phone] Social History Tobacco Use Types Packs/Day [...] Visit [facility] [address] Elizabeth ELIZABETH [address] [place] [phone] Tyler Hawkins MD [address] [place] [address] [place] [address] documented as of this encounter Visit Diagnoses Not on filedocumented in this encounter Care Teams Technical Services Librarian Relationship Specialty Start Date End Date Britney Lockhart MD PCP - General 03/17/19 documented as of this encounter
[2025-01-20] MEDS: iohexoL 350 MG/ML 100 ML INFUS..BTL IV (14:11)
[2025-01-20 14:21] VITALS: BP 150/66; PULSE 68; RESP 16; O2SAT 95
[2025-01-20 15:28] VITALS: BP 128/85; PULSE 78; RESP 16; TEMP 37.1; O2SAT 100
== END 2025-01-20 15:41 | disposition home or self-care (01) ==
PROVIDERS: Physician Assistant Medical; Emergency Provider Emergency Medicine Emergency Medical Services; PCP Family Medicine
DX: R07.9 Chest pain, unspecified (principal); M75.100 Unspecified rotator cuff tear or rupture of unspecified shoulder, not specified as traumatic; M25.512 Pain in left shoulder; I10 Essential (primary) hypertension; R06.02 Shortness of breath; R53.1 Weakness; I73.9 Peripheral vascular disease, unspecified; Z79.01 Long term (current) use of anticoagulants
CPT/HCPCS: 36415; 71045; 71275; 80053; 83735; 83880; 84484; 85025; 85610; 85730; 93005; 96374; 96375; 99285; J2270; J2405; Q9967

== ENCOUNTER → 2025-01-20 10:31 | Outpatient (BNV) | payer OTHER, SELFPAY | PROVIDERS: PCP Family Medicine; Visit Provider Internal Medicine Cardiovascular Disease | DX: R94.31 Abnormal electrocardiogram [ECG] [EKG] (principal); R07.9 Chest pain, unspecified | CPT/HCPCS: 93010 ==

== ENCOUNTER → 2025-01-20 11:12 | Outpatient (BNV) | payer OTHER, SELFPAY | PROVIDERS: PCP Family Medicine; Visit Provider Radiology Diagnostic Radiology | DX: I28.8 Other diseases of pulmonary vessels (principal); I51.7 Cardiomegaly; J81.0 Acute pulmonary edema; R91.1 Solitary pulmonary nodule; R06.02 Shortness of breath; R53.1 Weakness | CPT/HCPCS: 71045; 71275 ==

== ENCOUNTER 2025-02-05 12:12 | Outpatient (REF) | payer OTHER, SELFPAY ==
--- OUTSIDE RECORDS SUMMARY | 2024-01-03 09:15 | XMS_ITS ---
Author Organization [facility] Address [address] [place] [phone] Care Team Providers Care Donation Specialist Name Role Phone Britney Lockhart Primary Care Provider Unavailabl Eran Cochran Unavailable [phone] Encounters Encounter Location Date Provider Diagnosis [address] [address] 01/03/2024 Eran Salazar Plan Of Treatment Next Appt Details Provider Name:Eran Salazar , 02/12/2025 11:15:00 AM, [address] [place] [address], [phone], Progress Notes * Abby PURVISDOB:[birth year] (89 yo F)Acc No.[id number]:01/03/2024 Progress Note Patient: Abby POPE Provider: Portia Salazar DPM :1935 A ge:88 Y S ex:Female Date:01/03/2024 Address:[address] [place] [phone] Pcp:Britney Lockhart Subjective: * Chief Complaints: * * Medical History: Objective: * Vitals: Assessment: Plan: * Treatment: * Images: * The named appointment provid er may or may not be the originator of this progress note, and it is not deemed complete until electronically signed by the appointment provider. Sign off status: Pending * Provider: Portia Salazar DPM Date: 0 01/03/2024 Generated for Gelacio young/Hunter/Artis on: 0 02/05/2025 01:56 PM EDT
--- OUTSIDE RECORDS SUMMARY | 2024-03-06 07:00 | XMS_ITS ---
Author Organization [facility] Address [address] [place] [phone] Care Team Providers Care Electronics Technician Name Role Phone Britney Lockhart Primary Care Provider Unavailabl Eran Cochran Unavailable [phone] Encounters Encounter Location Date Provider Diagnosis [address] [address] 03/06/2024 Eran Salazar Plan Of Treatment Next Appt Details Provider Name:Eran Salazar , 02/12/2025 11:15:00 AM, [address] [place] [address], [phone], Progress Notes * Abby PURVISDOB:[birth year] (89 yo F)Acc No.[id number]:03/06/2024 Progress Note Patient: Abby POPE Provider: Portia Salazar DPM :1935 A ge:88 Y S ex:Female Date:03/06/2024 Address:[address] [place] [phone] Pcp:Britney Lockhart Subjective: * Chief Complaints: * * Medical History: Objective: * Vitals: Assessment: Plan: * Treatment: * Images: * The named appointment provid er may or may not be the originator of this progress note, and it is not deemed complete until electronically signed by the appointment provider. Sign off status: Pending * Provider: Portia Salazar DPM Date: 1 Generated for Gelacio young/Hunter/Artis on: 0 02/05/2025 01:56 PM EDT
[2025-02-05 12:33] LABS: MANUAL DIFF FLAG NO
[2025-02-05 13:24] LABS: Hematocrit 30.6 % (37.0-47.0); Hemoglobin 10.1 g/dl (12.0-16.0); Imm Gran Abs Auto 0.01 X10*3/uL (0.00-0.03); Imm Gran Pct Auto 0.1 % (0.0-0.4); Lymphocytes Absolute Auto 3.1 X10*3/uL (1.2-4.9); Mean Corpuscular HGB Conc 33.0 g/dl (31.0-35.0); Mean Corpuscular Hemoglobin 29.6 pg (27.0-33.0); Mean Corpuscular Volume 89.7 fL (80.0-98.0); NRBC Abs Auto 0.000 X10*3/uL (0.0-0.012); NRBC Pct Auto 0.0 /100WBC (0.0-0.2); Platelet Count 268 X10*3/uL (160-400); Red Blood Count 3.41 X10*6/uL (4.20-5.50); White Blood Count 7.2 X10*3/uL (4.8-10.8)
[2025-02-05 13:30] LABS: Reticulocytes Absolute 0.028 X10*6/uL (0.026-0.095)
--- OUTSIDE RECORDS SUMMARY | 2025-02-05 13:57 | XMS_ITS | Clinical Summary ---
Author Organization [employer] Address [address] [facility] [address] [place] [address] Care Team Providers Care Clipping Marker Name Role Phone Britney Lockhart MD Primary Care Provider [phone] Allergies Active Allergy Reactions Criticality Noted Date [...] MORNING AND IN THE EVENING 60 tablet 05/20/19 25 Active Ferrous Sulfate (iron) 325 [...] THE EVENING 180 tablet 05/25/19 25 Active Acetaminophen Extra Strength 500 MG tablet TAKE 2 TABLETS BY MOUTH EVERY 8 HOURS NEEDED 90 tablet 3 08/12/19 25 Active allopurinol (Zyloprim) 100 MG tablet TAKE 2 TABLETS BY MOUTH ONCE DAILY IN THE MORNING 60 tablet 11 11/28/19 25 Active cyanocobalamin (Vitamin B-12) 1000 MCG tablet TAKE 1 TABLET BY MOUTH EVERY MORNING 90 tablet 12/02/19 25 Active omeprazole (PriLOSEC) [address] capsuleIndicat ions:Gastroeso phageal reflux disease, unspecified whether esophagitis present TAKE 1 CAPSULE BY MOUTH EVERY MORNING BEFORE BREAKFAST 90 capsule 12/31/19 25 Active lidocaine (Lidoderm) 5 % patchIndicatio ns:Chronic pain of both shoulders Apply 1 patch topically Once per day. Remove & discard patch within 12 hours or as directed by MD. Douglas patch 01/30/20 25 Active lidocaine (Lidoderm) 5 % patchIndicatio ns:Chronic pain of both shoulders Apply 1 patch topically Once per day. Remove & discard patch within 12 hours or as directed by MD. Douglas patch 07/26/19 25 2024 Discontinued(R eorder (will not trigger notification to Pharmacy)) traMADol (Ultram) 50 MG tabletIndicati ons:Chronic pain of left knee Take 1 tablet (50 mg) by mouth Once daily as needed for severe pain. 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 5 tablet 01/30/20 25 2024 Active Problems Problem Noted Date Diagnosed Date Elevated erythrocyte sedimentation rate 11/27/19 Assessment & Plan (11/26/2024 10:00 AM EDT): - referred to information assistant for an evaluation for PMR; patient was seen for gout - called for a new appointment to evaluate for bilateral shoulder pain, weakness, and possible PMR Pulmonary hypertension 11/26/2024 Assessment & Plan (11/26/2024 10:05 AM EDT): - mild - last echo in October 2024 Gout 07/23/2024 Assessment & Plan (07/25/2024 7:34 AM EDT): - evaluated by information assistant - continue low dose allopurinol Chronic pain of both shoulders 10/29/2023 Assessment & Plan (02/03/2025 9:54 AM EDT): Orders: CBC auto differential; Future Sed Rate by Modified Westergren; Future C-reactive Protein; Future lidocaine (Lidoderm) 5 % patch; Apply 1 patch topically Once per day. Remove & discard patch within 12 hours or as directed by MD. Referral to Orthopaedic Surgery; Future traMADol (Ultram) 50 MG tablet; Take 1 tablet (50 mg) by mouth Once daily as needed for severe pain for up to 5 days. Comprehensive Metabolic Panel; Future Assessment & Plan (07/25/2024 7:32 AM EDT): [...] PMR Recheck ESR and CRP Refer to information assistant Weight loss 09/03/2023 Assessment & Plan (07/25/2024 [...] x 2 - recommended lifelong anticoagulation by field administrator - previously on warfarin, changed to apixaban Assessment & Plan (10/30/2023 12:18 PM EDT): - x 2 - recommended lifelong anticoagulation by field administrator Assessment & Plan (09/03/2023 4:34 PM EDT): - x 2 - recommended lifelong anticoagulation by field administrator Assessment & Plan (06/04/2023 6:01 AM EST): - x 2 - recommended lifelong anticoagulation by field administrator Chronic anticoagulation 01/17/2023 Assessment & Plan (11/26/2024 9:56 AM EDT): -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 -previously taking warfarin, switched to apixaban in May 2023 -continue apixaban 2.5 mg bid Assessment & Plan (07/24/2024 2:04 AM EDT): -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 -previously taking warfarin, switched to apixaban in May 2023 -continue apixaban 2.5 mg bid Assessment & Plan (10/30/2023 12:19 PM EDT): -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 -previously taking warfarin, switched to apixaban in May 2023 -continue apixaban 2.5 mg bid Assessment & Plan (09/03/2023 4:33 PM EDT): -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 Hawkins - Baseline creatinine 1.2-1.3 - Lamp Shade Joiner: MALGORZATA Ayers, last seen in Feb 2024, upcoming appointment - Continue furosemide 20mg daily (previously every other day, but recent instruction is daily) - Continue chlorthalidone and lisinopril with caution. - Continue vitamin D 2000 units daily. Assessment & Plan (07/25/2024 7:32 AM EDT): - Following with Dr. Hawkins - Baseline creatinine 1.2-1.3 - Lamp Shade Joiner: MALGORZATA Ayers, last seen in Feb 2024, upcoming appointment in August 2023 - Continue furosemide 20mg daily (previously every other day, but recent instruction is daily) - Continue chlorthalidone and lisinopril with caution. - Continue vitamin D 2000 units daily. Assessment & Plan (02/18/2024 5:26 AM EDT): - Following with Dr. Hawkins - Baseline creatinine 1.2-1.3 - Lamp Shade Joiner: MALGORZATA Ayers, last seen in Jun 2023, upcoming appointment in Feb 2024 - Continue furosemide 20mg every other day, since July 2017. - Continue chlorthalidone and lisinopril with caution. - Continue vitamin D 2000 units daily. Assessment & Plan (10/29/2023 6:52 PM EDT): - Co-managed with Dr. Hawkins - Baseline creatinine 1.2-1.3 - Lamp Shade Joiner: MALGORZATA Ayers, last seen in Jun 2023 - Continue furosemide 20mg every other day, since July 2017. - Continue chlorthalidone and lisinopril with caution. - Continue vitamin D 2000 units daily. Assessment & Plan (09/03/2023 4:30 PM EDT): - Co-managed with Dr. Hawkins - Baseline creatinine 1.2-1.3 - Lamp Shade Joiner: MALGORZATA Ayers, last seen in Jun 2023 - Continue furosemide 20mg every other day, since July 2017. - Continue chlorthalidone and lisinopril with caution. - Continue vitamin D 2000 units daily. Assessment & Plan (06/07/2023 6:35 AM EST): - Co-managed with Dr. Hawkins - Baseline creatinine 1.2-1.3 - Lamp Shade Joiner: [facility] [place], last seen in Jan 2023 - Continue [...] daily (previously every other day), prescribed by carpenter packing - Treatment history: Discontinued metoprolol, nifedipine -Continue [...] daily (previously every other day), prescribed by carpenter packing - Treatment history: Discontinued metoprolol, nifedipine -Continue [...] - leg elevation, low sodium-diet Obesity 07/22/2014 Chronic kidney disease, stage III (moderate) 01/2014 Aortic valve regurgitation 08/30/2013 Assessment & Plan (11/26/2024 9:55 AM EDT): -Prosthodontist/Educator: ARGENTINA, seen in October 2024 -Echo on 10/20/24: Graham LVEF 60-65%; Grade 2 diastolic dysfunction with elevated LAP; mild posterior MV thickening; mild mitral calcification; mild tricuspid regurgitation; mild pulmonary hypertension; mildly calcified AV; moderate aortic regurgitation Assessment & Plan (07/24/2024 2:03 AM EDT): -Prosthodontist/Educator: ARGENTINA, seen in July 2023 -Last TTE in Jan 2023 LVEF 60-65%, aortic sclerosis without stenosis, moderate aortic regurgitation, moderate tricuspid regurgitation, mild mitral regurgitation, mild pulmonary HTN. -follow up in 1 year per patient's family Assessment & Plan (02/18/2024 5:24 AM EDT): -Prosthodontist/Educator: ARGENTINA, seen in July 2023 -Last TTE in Jan 2023 LVEF 60-65%, aortic sclerosis without stenosis, moderate aortic regurgitation, moderate tricuspid regurgitation, mild mitral regurgitation, mild pulmonary HTN. -follow up in 1 year per patient's family Assessment & Plan (09/03/2023 4:28 PM EDT): -Prosthodontist/Educator: ARGENTINA, seen in July 2023 -Last TTE in Jan 2023 LVEF 60-65%, aortic sclerosis without stenosis, moderate aortic regurgitation, moderate tricuspid regurgitation, mild mitral regurgitation, mild pulmonary HTN. -follow up in 1 year per patient's family Assessment & Plan (06/07/2023 6:31 AM EST): -Prosthodontist/Educator: ARGENTINA, seen in Jan 2023 -Last TTE in Jan 2023 LVEF 60-65%, aortic sclerosis without stenosis, moderate aortic regurgitation, moderate tricuspid regurgitation, mild mitral regurgitation, mild pulmonary HTN. 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 Refer to field administrator Ferritin will likely be elevated due to [...] Encounters Date Type Department Care Team Description 01/29/2025 3:45 PM EDT Office Visit [facility] [address] [place] [phone] Dora Murphy, MARIO ALBERTO Chronic pain of both shoulders (Primary Dx); Chronic pain of left knee 01/29/2025 Travel 01/27/2025 Telephone [facility] [address] [place] [phone] Britney Lockhart MD march recall 01/26/2025 Telephone [facility] [address] [place] [phone] Britney Lockhart MD Appointment Request 01/21/[address] [phone] Britney Lockhart MD ER Follow-up 01/20/2025 Orders Only [facility] External Provider, [facility] 12/30/2024 Refill [facility] [address] [place] [address] Britney Lockhart MD Gastroesophageal reflux disease, unspecified whether esophagitis present 11/30/2024 Refill [facility] [address] [place] [address] Britney Lockhart MD 11/27/2024 Telephone [facility] [address] [place] [phone] Britney Lockhart MD Durable Medical Equipment (DME Order: Walker (No Wheels), PLR repairs) 11/27/2024 Refill [facility] [address] [place] [phone] Britney Lockhart MD 11/12/2024 11:00 AM EDT Office Visit [facility] [address] [place] [address] Britney Lockhart MD Chronic pain of left [...] sites, unspecified cause 11/12/2024 Travel 11/11/2024 Telephone [facility] [address] [place] [address] Britney Lockhart MD CHART PREP 11/06/2024 Patient Outreach [facility] [address] [place] [address] Britney Lockhart MD Pre-visit Planning (SDOH was already completed) 11/06/2024 Patient Outreach [facility] [address] [place] [address] Britney Lockhart MD from Last 3 Months Immunizations Immunization Administration Dates Next Due Influenza High-dose Quadriva lent Preservative Free 03/15/2021,05/23/2020 Influenza injectable quadriv alent IIV4 with preservative 02/07/2017,02/06/2016 Influenza injectable quadriv alent preservative free 06/04/2023,03/18/2020,03/15/2015 Influenza, High Dose Seasona l, Preservative Free 02/10/2024,01/28/2019,03/03/2018 Influenza, IIV3, injectable 04/20/2014 Influenza, Split (incl. estefanía fied surface antigen) 02/21/2016,01/28/2013,01/10/2012 Pneumococcal Conjugate PCV 13 10/03/2016 Pneumococcal Polysaccharide [...] is your housing situation today? I have stivenflorian mcfarland 05/29/[address] you [...] Sign Reading Time Taken Comments Blood Pressure 142/89 01/29/2025 3:52 PM EDT Pulse 99 01/29/2025 3:52 PM EDT Temperature 36.1 C (97 F) 01/29/2025 3:52 PM EDT Respiratory Rate 21 01/29/2025 3:52 PM EDT Oxygen Saturation 99% 01/29/2025 3:52 PM EDT Inhaled Oxygen Concentration - - Weight 71.2 kg (157 lb) 01/29/2025 3:52 PM EDT Height 165.1 cm (5' 5 ) 01/29/2025 3:52 PM EDT Body Mass Index 26.13 01/29/2025 3:52 PM EDT Plan of Treatment Health Maintenance Due [...] 11/12/2025 11/12/2024 Depression Screening 11/12/2025 11/12/2024, 11/13/19 Tobacco Screening 01/29/2026 01/29/2025 Lipid Panel 06/14/2028 06/14/2023, 11/11, 12/07/2021, Additional [...] Procedure Name Priority Date/Time Associated Diagnosis Comments CBC WITH AUTO DIFFERENTIAL Routine 02/05/2025 12:30 PM EDT Chronic pain of both shoulders RETICULOCYTE COUNT Routine 02/05/2025 12 :30 PM EDT Anemia, unspecified type CTA CHEST PE PROTOCAL Routine 01/20/2025 2:02 PM EDT HIGH SENSITIVITY TROPONIN I Routine 01/20/2025 12:47 PM EDT XR CHEST 1 VIEW Routine 01/20/2025 11:25 AM EDT LIPID PANEL WITH REFLEX TO DIRECT LDL Routine 06/14/2023 9:40 AM EST Essential hypertension from Last 3 Months or Most Recently Relevant to Health Maintenance Results * (ABNORMAL) CBC auto differential (02/05/2025 12:30 PM EDT) White Blood Count 7.2 4.8 - 10.8 X10*3/uL [facility] Red Blood Count 3.41(L) 4.20 - 5.50 X10*6/uL [facility] Hemoglobin 10.1(L) 12.0 - 16.0 g/dl [facility] Hematocrit 30.6(L) 37.0 - 47.0 % [facility] Mean Corpuscular Volume 89.7 80.0 - 98.0 fL [facility] Mean Corpuscular Hemoglobin 29.6 27.0 - 33.0 pg [facility] Mean Corpuscular HGB Conc 33.0 31.0 - 35.0 g/dl [facility] Red Cell Distribution Width 15.3 11.0 - 16.0 % [facility] Platelet Count 268 160 - 400 X10*3/uL [facility] Mean Platelet Volume 12.3 9.4 - 12.3 fL [facility] Neutrophils Percent Auto 46.5 45 - 73 % [facility] Imm Gran Pct Auto 0.1 0.0 - 0.4 % [facility] Lymphocytes Percent Auto 43.3(H) 20 - 40 % [facility] Monocytes Percent Auto 9.1 2 - 11 % [facility] Eosinophils Percent Auto 0.7 0 - 4 % [facility] Basophils Percent Auto 0.3 0 - 2 % [facility] NRBC Pct Auto 0.0 0.0 - 0.2 /100WBC [facility] Neutrophils Absolute Auto 3.3 2.0 - 8.3 x10*3/uL [facility] Imm Gran Abs Auto 0.01 0.00 - 0.03 X10*3/uL [facility] Lymphocytes Absolute Auto 3.1 1.2 - 4.9 X10*3/uL [facility] Monocytes Absolute Auto 0.7 0.1 - 1.2 X10*3/uL [facility] Eosinophils Absolute Auto 0.1 0.0 - 0.4 X10*3/uL [facility] Basophils Absolute Auto 0.0 0.0 - 0.2 X10*3/uL [facility] NRBC Abs Auto 0.000 0.0 - 0.012 X10*3/uL [facility] Blood Venous blood specimen / Unknown 02/05/2025 12:30 PM EDT 02/05/2025 12:30 PM EDT us Dora Murphy [employer] LAB BLOOD ORDERABLES Final Resul t [facility] [address] [place] [phone] * Reticulocyte Count (02/05/2025 12:30 PM EDT) Reticulocytes Absolute 0.028 0.026 - 0.095 X10*6/uL [facility] Immature Retic Fraction 7.1 3.0 - 15.9 % [facility] Retic HGB Equivalent 31.0 30.0 - 35.0 pg [facility] Reticulocyte Percent 0.8 0.5 - 1.8 % [facility] Blood Venous blood specimen / Unknown 02/05/2025 12:30 PM EDT 02/05/2025 12:30 PM EDT us Britney Lockhart MD LAB BLOOD ORDERABLES Final Resul t [facility] [address] [place] [phone] * CTA Chest PE Protocal (01/20/2025 2:02 PM EDT) Anatomical Region Laterality Modality Body, Chest Computed Tomogra phy 01/20/2025 2:02 PM EDT Narrative 01/20/2025 3:02 PM EDT [address] [address] [address] Scan Report Signed Patient: Abby Garsia MR#: [id number] 653 : 1935 Acct:[id number] Age/Sex: 89 / F ADM Date: 01/20/25 Loc: .ED Attending Dr: Ordering Physician: Lynne Cruz Date of Service: 01/20/25 Procedure(s): CT angio chest PE protocol Accession Number(s): [id number] cc: Lynne Cruz; Britney Lockhart MD Report Number: [id number]: Total DLP = 0.00 mGy-cm Reason for Exam: chest pain, possible PE EXAMINATION: CT ANGIOGRAM CHEST CLINICAL INFORMATION: Chest pain COMPARISON: Same x-ray TECHNIQUE: Multiple axial images were obtained through the chest after the administration of 65 mL of Omnipaque 350 intravenous contrast. Extensive vascular post-processing including two-dimensional and three-dimensional reformatted images were created and reviewed on an independent workstation. This CT examination was performed using dose optimization techniques as appropriate, variously including the following: *Automated exposure control *Adjustment of mA and/or kV according to patient size (this includes techniques or standardized protocols for targeted exams where dose is matched to indication/reason for exam; i.e. extremities or head) *Use of iterative reconstruction technique DLP: 335 mGY*cm FINDINGS: QUALITY OF STUDY/CONTRAST BOLUS: Adequate PULMONARY ARTERIES: The main pulmonary artery diameter is 35 mm which is 1.3 times larger than the adjacent aorta. No filling defects are evident in the pulmonary arteries. THORACIC AORTA: There are atherosclerotic ossifications without aneurysm. LUNGS AND PLEURA: There is mild enlargement of pulmonary vascularity. There is focal area secular bronchiectasis in the right perihilar lung. Axial image 72/141: There is a 3 x 7 mm solid pulmonary nodule contacting the major fissure. There is linear scarring in the anterior left upper lobe. There is minimal basilar atelectasis and/or scarring. There is no pleural effusion. MEDIASTINUM: The heart size is enlarged. CORONARY ARTERY CALCIFICATION: Present CHEST WALL/AXILLA: No axillary or internal mammary lymphadenopathy. UPPER ABDOMEN: Gallbladder surgically absent. BONES: There are severe degenerative changes in both shoulder joints and rotator cuff arthropathy. There is moderate to severe degenerative changes in the thoracic spine. CT/CT angio chest PE protocol IMPRESSION: No evidence of pulmonary embolus. Cardiomegaly and evidence of pulmonary vascular congestion. Enlargement of main pulmonary artery raises question of underlying pulmonary hypertension. 3 x 7 mm solid pulmonary nodule in the right upper lobe. No further follow-up is indicated per Fleischner Society recommendations, unless the patient falls into a high risk category, in which case a 12 month follow-up CT chest without contrast is optional. High risk patients includes those with a history of smoking, first-degree relative with lung cancer, or exposure to uranium, radon, or asbestos. Bilateral rotator cuff arthropathy consistent with chronic bilateral full-thickness rotator cuff tears. Fleischner guidelines were followed. Electronically signed by: Alonso Peter MD 01/20/2025 02:59 PM EDT Dictated By: Alonso Peter MD Signed By: <Electronically signed by Alnoso Peter MD in OV> 01/20/25 1459 DD/ 1402 TD/TT: 01/20/25 1429 Machine Binding Folder: Procedure Note Donoteltoninterpreter, Image - 01/20/[address] [address] [address] Scan Report Signed Patient: Abby GarsiaMR#: [id number] 653 : 1935cct:[id number] Age/Sex: 89 / FADM Date: 01/20/25 Loc: HO.ED Attending Dr: Ordering Physician: Lynne Cruz Date of Service: 01/20/25 Procedure(s): CT angio chest PE protocol Accession Number(s): [id number] cc: Lynne Cruz; Britney Lockhart MD Report Number: [id number]: Total DLP = 0.00 mGy-cm Reason for Exam: chest pain, possible PE EXAMINATION: CT ANGIOGRAM CHEST CLINICAL INFORMATION: Chest pain COMPARISON: Same x-ray TECHNIQUE: Multiple axial images were obtained through the chest after the administration of 65 mL of Omnipaque 350 intravenous contrast. Extensive vascular post-processing including two-dimensional and three-dimensional reformatted images were created and reviewed on an independent workstation. This CT examination was performed using dose optimization techniques as appropriate, variously including the following: *Automated exposure control *Adjustment of mA and/or kV according to patient size (this includes techniques or standardized protocols for targeted exams where dose is matched to indication/reason for exam; i.e. extremities or head) *Use of iterative reconstruction technique DLP: 335 mGY*cm FINDINGS: QUALITY OF STUDY/CONTRAST BOLUS: Adequate PULMONARY ARTERIES: The main pulmonary artery diameter is 35 mm which is 1.3 times larger than the adjacent aorta. No filling defects are evident in the pulmonary arteries. THORACIC AORTA: There are atherosclerotic ossifications without aneurysm. LUNGS AND PLEURA: There is mild enlargement of pulmonary vascularity. There is focal area secular bronchiectasis in the right perihilar lung. Axial image 72/141: There is a 3 x 7 mm solid pulmonary nodule contacting the major fissure. There is linear scarring in the anterior left upper lobe. There is minimal basilar atelectasis and/or scarring. There is no pleural effusion. MEDIASTINUM: The heart size is enlarged. CORONARY ARTERY CALCIFICATION: Present CHEST WALL/AXILLA: No axillary or internal mammary lymphadenopathy. UPPER ABDOMEN: Gallbladder surgically absent. BONES: There are severe degenerative changes in both shoulder joints and rotator cuff arthropathy. There is moderate to severe degenerative changes in the thoracic spine. CT/CT angio chest PE protocol IMPRESSION: No evidence of pulmonary embolus. Cardiomegaly and evidence of pulmonary vascular congestion. Enlargement of main pulmonary artery raises question of underlying pulmonary hypertension. 3 x 7 mm solid pulmonary nodule in the right upper lobe. No further follow-up is indicated per Fleischner Society recommendations, unless the patient falls into a high risk category, in which case a 12 month follow-up CT chest without contrast is optional. High risk patients includes those with a history of smoking, first-degree relative with lung cancer, or exposure to uranium, radon, or asbestos. Bilateral rotator cuff arthropathy consistent with chronic bilateral full-thickness rotator cuff tears. Fleischner guidelines were followed. Electronically signed by: Alonso Peter MD 01/20/2025 02:59 PM EDT Dictated By: Alonso Peter MD Signed By: <Electronically signed by Alonso Peter MD in OV> 01/20/25 1459 DD/ 1402 TD/TT: 01/20/25 1429 Machine Binding Folder: [facility] External Provider IMG CT PROCEDURES Final Result * High Sensitivity Troponin I (01/20/2025 12:47 PM EDT) TROPONIN I HIGH SENSITIVITY 13.4 <3.5 - 17.0 ng/L [facility] Comment:The Atkins high sens itivity Troponin-I results should beused in conjunction with other diagnostic information suchas ECG, clinical observations and information, and patientsymptoms to aid in the diagnosis of [place]. 01/20/2025 12:4 7 PM EDT 01/20/2025 12:51 PM EDT Generic External Data Provider LAB BLOOD ORDERAB LES Final Result [facility] [address] [place] [phone] * XR Chest 1 View (01/20/2025 11:25 AM EDT) Anatomical Region Laterality Modality Chest Radiographic Suly ging 01/20/2025 11:2 5 AM EDT Narrative 01/20/2025 11:44 AM EDT [address] [address] XRay Report Signed Patient: Abby Garsia MR#: [id number] 653 : 1935 Acct:[id number] Age/Sex: 89 / F ADM Date: 01/20/25 Loc: .ED Attending Dr: Ordering Physician: Lynne Cruz Date of Service: 01/20/25 Procedure(s): XR chest 1V Accession Number(s): [id number] cc: Lynne Cruz; Britney Lockhart MD Reason [...] 01/20/25 1141 DD/ 1125 TD/TT: 01/20/25 1130 Machine Binding Folder: Procedure Note Donoteltoninterpreter, Image - 01/20/[address] [address] XRay Report Signed Patient: Abby GarsiaMR#: [id number] 653 : 7Acct:[id number] Age/Sex: 89 / FADM Date: 01/20/25 Loc: HO.ED Attending Dr: Ordering Physician: Lynne Cruz Date of Service: 01/20/25 Procedure(s): XR chest 1V Accession Number(s): [id number] cc: Lynne Cruz; Britney Lockhart MD Reason [...] 01/20/25 1141 DD/ 1125 TD/TT: 01/20/25 1130 Machine Binding Folder: [facility] External Provider IMG XR PROCEDURES Final Result * (ABNORMAL) Lipid Panel with Reflex to Direct LDL (06/14/2023 9:40 AM EST) Triglycerides 115 <150 mg/dL [facility] Comment:Desirable Triglyceri de: less than 150 mg/dLBorderline High Triglyceride 150-199 mg/dLHigh Triglyceride: 200-499 mg/dLVery High Triglyceride: greater than or equal to 5OO mg/dL Cholesterol 145 <200 mg/dL [facility] Comment:Desirable Cholestero l: less than 200 mg/dLBorderline High Cholesterol: 200-239 mg/dLHigh Cholesterol: greater than 239 mg/dL LDL Cholesterol Calculated 88 <100 mg/dL [facility] Comment:Desirable LDL: less than 100 mg/dLNear Optimal/Above Optimal LDL: 110- 129 mg/dLBorderline High LDL: 130-159 mg/dLHigh LDL: 160-189 mg/dLVery High LDL: greater than or equal to 190 mg/dL HDL Cholesterol 34(L) >40 mg/dL [facility] Comment:Desirable HDL: great er than 40 mg/dL Note: This HDL assay may give artificially low results in patients with liver disease. Blood 06/14/2023 9:40 AM EST 06/14/2023 11:31 AM EST us Britney Lockhart MD LAB BLOOD ORDERABLES Final Resul t [facility] [address] [place] [address] [phone] from Last 3 Months or Most Recently Relevant to Health Maintenance Insurance [facility] LONG-TERM OPTIONS (HMO D-SNP) PAULA MENDEZ [id number] Care Teams Clipping Marker Relationship Specialty Start Date End Date Britney Lockhart MD [address] [place] [address] PCP - General Family Medicine 05/27/13 [facility] 02/21/23
--- OUTSIDE RECORDS SUMMARY | 2025-02-05 13:57 | XMS_ITS | Encounter Summary ---
Author Organization [facility] Address [address] [place] [address] Phone Care Team Providers Care Diabetes Nurse Name Role Phone Britney Lockhart MD Primary Care Provider [phone] Encounter Details Date Type Department Care Team (Late Contact Info) Description 08/13/2023 Documentation Only [facility] [address] [place] [address] Janet Freitas [address] [place] [phone] Social History Tobacco Use Types Packs/Day [...] [facility] [address] Elizabeth ELIZABETH [address] [place] [phone] Tyler Hawkins MD [address] [place] [address] [place] [address] documented as of this encounter Visit Diagnoses Not on filedocumented in this encounter Care Teams Diabetes Nurse Relationship Specialty Start Date End Date Britney Lockhart MD PCP - General 03/17/19 documented as of this encounter
--- OUTSIDE RECORDS SUMMARY | 2025-02-05 13:57 | XMS_ITS | Encounter Summary ---
Author Organization [facility] [place], Address [address] [place] [address] Phone Care Team Providers Care Seat Joiner Name Role Phone Britney Lockhart MD Primary Care Provider [phone] Encounter Details Date Type Department Care Team (Late Contact Info) Description 02/11/2024 Documentation Only [facility] [address] Elizabeth [address] [place] [address] Janet Freitas [address] [place] [phone] Social History Tobacco Use Types Packs/Day [...] Visit [facility] Silvana OlivasJan Dr Elizabeth ELIZABETH [address] [place] [address] Tyler Hawkins MD [address] [facility] [place] [address] documented as of this encounter Visit Diagnoses Not on filedocumented in this encounter Care Teams Seat Joiner Relationship Specialty Start Date End Date Britney Lockhart MD PCP - General 03/17/19 documented as of this encounter
--- OUTSIDE RECORDS SUMMARY | 2025-02-05 13:57 | XMS_ITS | Encounter Summary ---
Author Organization [employer] Address [address] [place] [address] 7t [place] [address] Care Team Providers Care Pump Operator Name Role Phone Britney Lockhart MD Primary Care Provider [phone] Encounter Details Date Type Department Care Team ([facility] st Contact Info) Description 04/25/2022 Abstract [facility] MEDICINE [address] [place] [address] Provider, MD Karsten Social History Tobacco Use [...] on filedocumented in this encounter Care Teams Pump Operator Relationship Specialty Start Date End Date Britney Lockhart MD [address] [place] [address] PCP - General Family Medicine 05/27/13 [facility] 02/21/23 documented as of this encounter
--- OUTSIDE RECORDS SUMMARY | 2025-02-05 13:57 | XMS_ITS | Encounter Summary ---
Author Organization [employer] Address [address] [facility] 7t [place] [address] Care Team Providers Care Teacher Home Therapy Name Role Phone Britney Lockhart MD Primary Care Provider [phone] Encounter Details Date Type Department Care Team ([facility] st Contact Info) Description 12/03/2023 Orders Only [facility] MEDICINE [address] [place], [place] [phone] Britney Lockhart MD [address] [place], [place] [phone] Social History Tobacco Use Types Packs/Day Years [...] documented as of this encounter Care Teams Teacher Home Therapy Relationship Specialty Start Date End Date Britney Lockhart MD [address] [place] [address] PCP - General Family Medicine 05/27/13 [facility] 02/21/23 documented as of this encounter
--- OUTSIDE RECORDS SUMMARY | 2025-02-05 13:57 | XMS_ITS | Clinical Summary ---
Author Organization [facility] [place], Address [address] [place] [address] [place] [address] Phone Care Team Providers Care Business Analysis Consultant Name Role Phone Britney Lockhart MD Primary Care Provider [phone] Allergies Active Allergy Reactions Criticality Noted Date [...] Date Resolved Date [facility] 09/07/2020 03/27/2021 Secondary hyperparathyroidism [...] Visit [facility] [place], [place] - Jan Esqueda [address] [facility] [address] [place] [address] Tyler Hawkins MD [address] [place] [address] [place] [phone] Health Maintenance Due Date Last Done Comments [...] [employer] Dual SNP ([id number]) PAULA MENDEZ [id number] Care Teams Business Analysis Consultant Relationship Specialty Start Date End Date Britney Lockhart MD PCP - General 03/17/19
--- OUTSIDE RECORDS SUMMARY | 2025-02-05 13:57 | XMS_ITS | Encounter Summary ---
Author Organization [employer] Address [address] [facility] 7t [place] [address] Care Team Providers Care Awning Hanger Helper Name Role Phone Britney Lockhart MD Primary Care Provider Encounter Details Date Type Department Care Team ([facility] st Contact Info) Description 10/16/2023 Orders Only [facility] MEDICINE [address] [place], [place] [phone] Britney Lockhart MD 230 [place], [place] [phone] Bone lesion (Primary Dx); Weight loss; Bone [...] documented as of this encounter Care Teams Awning Hanger Helper Relationship Specialty Start Date End Date Britney Lockhart MD [address] [place] [address] PCP - General Family Medicine 05/27/13 [facility] 02/21/23 documented as of this encounter
--- OUTSIDE RECORDS SUMMARY | 2025-02-05 13:57 | XMS_ITS | Patient Health Record ---
Author Organization [facility] Address [address] [place] [address] Care Team Providers Care Dye Mixer Name Role Phone Chantelle ROSAS, Britney Primary Care Provider Kay Moya Jr, Toñito Unavailable [phone] Reason For Referral No Information Medications Medication [...] Problem Status W/U Status Risk Notes Problem [id number] Diarrhea (R19.7) Active confirmed Plan Of Treatment No Information Insurance Providers Payer Name Payer Address Payer Phone Subscriber Number Group Number Insured Name Patient Relationship to Insured Coverage Start Date Coverage End Date MEDICARE OF [place] [address] [place] [address] [id number] JUAN PURVIS Self - patient is the insured [facility] [address] [place] [address] [id number] JUAN PURVIS Self - patient is the insured Medical (General) History Medical History History ICD Code osteoarthritis PVD Vitamin B12 deficiency Anemia Chronic anticoagulation Hx of DVT of lower extremity depression GERD Hx of Endometrial cancer Aortic regurgitation Tricuspid regurgitation Mitral regurgitation Chronic kidney disease stage III Surgical History Surgery Date(Month/Year) cholecystectomy knee surgery hysterectomy
--- OUTSIDE RECORDS SUMMARY | 2025-02-05 13:57 | XMS_ITS | Encounter Summary ---
Author Organization [facility] [place], Address [address] [place] [address] Phone Care Team Providers Care Auto Claims Adjuster Name Role Phone Britney Lockhart MD Primary Care Provider [phone] Encounter Details Date Type Department Care Team (Late Contact Info) Description 02/11/2024 Documentation Only [facility] [address] Elizabeth ELIZABETH [address] [place] [address] Janet Freitas [address] [place] [phone] Social History Tobacco Use Types Packs/Day [...] Visit [facility] Silvana OlivasJan Dr Elizabeth ELIZABETH [address] [place] [address] Tyler Hawkins MD [address] [facility] [place] [address] documented as of this encounter Visit Diagnoses Not on filedocumented in this encounter Care Teams Auto Claims Adjuster Relationship Specialty Start Date End Date Britney Lockhart MD PCP - General 03/17/19 documented as of this encounter
--- OUTSIDE RECORDS SUMMARY | 2025-02-05 13:57 | XMS_ITS | Encounter Summary ---
Author Organization [employer] Address [address] [place] [address] 7t [place] [address] Care Team Providers Care Machine Shop Apprentice Name Role Phone Britney Lockhart MD Primary Care Provider [phone] Encounter Details Date Type Department Care Team ([facility] st Contact Info) Description 06/06/2022 Orders Only [facility] MEDICINE [address] [place] [address] Enriqueta Gonsalves LPN Social History Tobacco Use [...] on filedocumented in this encounter Care Teams Machine Shop Apprentice Relationship Specialty Start Date End Date Britney Lockhart MD [address] [place] [address] PCP - General Family Medicine 05/27/13 [facility] 02/21/23 documented as of this encounter
--- OUTSIDE RECORDS SUMMARY | 2025-02-05 13:57 | XMS_ITS | Encounter Summary ---
Author Organization [employer] Address [address] [facility] 7t [place] [address] Care Team Providers Care Nutritional Yeast Supervisor Name Role Phone Britney Lockhart MD Primary Care Provider [phone] Encounter Details Date Type Department Care Team ([facility] st Contact Info) Description 06/14/2023 Orders Only [facility] MEDICINE [address] [place], [place] [phone] Britney Lockhart MD [address] [place], [place] [phone] Social History Tobacco Use Types Packs/Day Years [...] documented as of this encounter Care Teams Nutritional Yeast Supervisor Relationship Specialty Start Date End Date Britney Lockhart MD [address] [place] [address] PCP - General Family Medicine 05/27/13 [facility] 02/21/23 documented as of this encounter
--- OUTSIDE RECORDS SUMMARY | 2025-02-05 13:57 | XMS_ITS | Encounter Summary ---
Author Organization [facility] [place], Address [address] [place] [address] Phone Care Team Providers Care Cloth Booker Name Role Phone Britney Lockhart MD Primary Care Provider [phone] Encounter Details Date Type Department Care Team (Late Contact Info) Description 02/21/2022 Documentation Only [facility] [address] [place] [address] Omar Melchor PA [address] [place] [address] [place] [address] Social History Tobacco Use Types [...] Visit [facility] [address] Elizabeth ELIZABETH [address] [place] [phone] Tyler Hawkins MD [address] [place] [address] [place] [address] documented as of this encounter Visit Diagnoses Not on filedocumented in this encounter Care Teams Cloth Booker Relationship Specialty Start Date End Date Britney Lockhart MD PCP - General 03/17/19 documented as of this encounter
--- OUTSIDE RECORDS SUMMARY | 2025-02-05 13:57 | XMS_ITS | Encounter Summary ---
Author Organization [facility] Address [address] [place] [address] Phone Care Team Providers Care Detector Car Operator Name Role Phone Britney Lockhart MD Primary Care Provider [phone] Encounter Details Date Type Department Care Team (Late Contact Info) Description 08/13/2023 Documentation Only [facility] [address] [place] [address] Janet Freitas [address] [place] [phone] Social History Tobacco Use Types Packs/Day [...] Visit [facility] [address] Elizabeth ELIZABETH [address] [place] [phone] Tyler Hawkins MD [address] [place] [address] [place] [address] documented as of this encounter Visit Diagnoses Not on filedocumented in this encounter Care Teams Detector Car Operator Relationship Specialty Start Date End Date Britney Lockhart MD PCP - General 03/17/19 documented as of this encounter
--- OUTSIDE RECORDS SUMMARY | 2025-02-05 13:58 | XMS_ITS | Encounter Summary ---
Author Organization [employer] Address [address] [place] [address] [address] Care Team Providers Care Research Microbiologist Name Role Phone Britney Lockhart MD Primary Care Provider [phone] Reason for Visit * Reason Onset Date Comments Appointment Request 05/10/2023 Encounter Details Date Type Department Care Team ([facility] st Contact Info) Description 05/10/2023 Telephone [facility] MEDICINE 230 [place], [place] [phone] Britney Lockhart MD [address] [place], [place] [phone] Appointment Request Social History Tobacco Use Types [...] on filedocumented in this encounter Care Teams Research Microbiologist Relationship Specialty Start Date End Date Britney Lockhart MD [address] [place], [place] [phone] PCP - General Family Medicine 05/27/13 [facility] 02/21/23 documented as of this encounter
--- OUTSIDE RECORDS SUMMARY | 2025-02-05 13:58 | XMS_ITS | Encounter Summary ---
Author Organization [employer] Address [address] [facility] 7t [place] [address] Care Team Providers Care Lgsw Name Role Phone Britney Lockhart MD Primary Care Provider [phone] Reason for Visit * Reason Onset Date Comments INR Results 03/11/2023 Encounter Details Date Type Department Care Team ([facility] st Contact Info) Description 03/11/2023 Telephone [facility] MEDICINE 230 [place], [place] [phone] Britney Lockhart MD 230 [place], [place] [phone] INR Results Social History Tobacco Use Types [...] PM EDT Incoming call from Cindy at [facility] who reports pt's INRs continuously [...] - 03/11/2023 2:39 PM EDT TC from [facility] with [facility] requesting to speak with a Nurse or provider to report results for INR and speak for a plan of care for pt. Please contact [facility] @ [phone] documented in this encounter Plan of Treatment Not on file documented as of this encounter Visit Diagnoses Not on filedocumented in this encounter Care Teams Lgsw Relationship Specialty Start Date End Date Britney Lockhart MD [address] [place] [address] PCP - General Family Medicine 05/27/13 [facility] 02/21/23 documented as of this encounter
--- OUTSIDE RECORDS SUMMARY | 2025-02-05 13:58 | XMS_ITS | Encounter Summary ---
Author Organization [employer] Address [address] [facility] 7t [place] [address] Care Team Providers Care Dry House Worker Name Role Phone Britney Lockhart MD Primary Care Provider [phone] Encounter Details Date Type Department Care Team ([facility] st Contact Info) Description 12/13/2022 Orders Only [facility] [address] [place], [place] [phone] Marlin Gifford LPN Social History Tobacco Use [...] on filedocumented in this encounter Care Teams Dry House Worker Relationship Specialty Start Date End Date Britney Lockhart MD [address] [place] [address] PCP - General Family Medicine 05/27/13 [facility] 02/21/23 documented as of this encounter
--- OUTSIDE RECORDS SUMMARY | 2025-02-05 13:58 | XMS_ITS | Encounter Summary ---
Author Organization [facility] [place], Address [address] [place] [address] Phone Care Team Providers Care Remote Sensing Technologist Name Role Phone Britney Lockhart MD Primary Care Provider [phone] Encounter Details Date Type Department Care Team (Late Contact Info) Description 10/12/2024 Orders Only [facility] Dr Elizabeth ELIZAB[address] [place] [address] Janet Freitas [address] [place] [phone] Social History Tobacco Use Types Packs/Day [...] Visit [facility] Silvana [address] Elizabeth ELIZABETH [address] [place] [address] Tyler Hawkins MD [address] [facility] [place] [address] documented as of this encounter Visit Diagnoses Not on filedocumented in this encounter Care Teams Remote Sensing Technologist Relationship Specialty Start Date End Date Britney Lockhart MD PCP - General 03/17/19 documented as of this encounter
--- OUTSIDE RECORDS SUMMARY | 2025-02-05 13:58 | XMS_ITS | Patient Health Record ---
[facility] Address [address] [place] [address] Care Team Providers Care Change Management Name Role Phone Britney Lockhart Primary Care Provider Eran Baxter Unavailable [phone] Allergies No Known Allergies Reason For Referral [...] days Active Vitamin C Active Vitamin D3 993166 UNIT/GM as directed Active Lidocaine 5 % [...] Status Risk Notes Problem Acquired hallux valgus (60689455) Hallux valgus (acquired), left foot (M20.12) Active confirmed Problem Acquired hallux valgus (14751845) Hallux valgus (acquired), right foot (M20.11) Active confirmed Problem Bilateral atherosclerosis of arteries of lower limbs (disorder) (48679565624453818 ) Atherosclerosis of [place] artery of both lower extremities, with unspecified presence of clinical manifestation (I70.203) Active confirmed Q7(A), Q8(2B), Q9(1B,2 C) Problem Ulcer of toe of left foot (disorder) (00318008913312609 ) Skin ulcer of toe of left foot, limited to breakdown of skin (L97.521) Active confirmed Vital Signs Blood pressure diastolic 60 mm Hg 11/20/2024 Height 5 ft 5 in in 11/20/2024 Blood pressure systolic 128 mm Hg 11/20/2024 Weight 148 lbs 11/20/2024 BMI 24.63 kg/m2 11/20/2024 Procedures Procedure Date Ordered Date Performed Result Body Sit e 74014-OQKAPSQ NAIL, 6 OR MORE 05/15/2024 N/A 25981-JHXO SKIN LESIONS, OVER 4 05/15/2024 N/A 36455-KNPXVMX NAIL, 6 OR MORE 08/14/2024 N/A 58018-DHME SKIN LESIONS, OVER 4 08/14/2024 N/A 14719-NFUJFOM NAIL, 6 OR MORE 11/20/2024 N/A 77881- Debride <25 sq cm 11/20/2024 N/A 73754-DIXM SKIN LESIONS, OVER 4 11/20/2024 N/A Encounters Encounter Location Date Provider Diagnosis [address] [address] 05/15/2024 Eran Salazar Atherosclerosis of [place] artery of both lower extremities, with unspecified presence of clinical manifestation I70.203 ; Tinea unguium B35.1 ; Pain in right toe(s) M79.674 ; Pain in left toe(s) M79.675 ; Hallux valgus (acquired), left foot M20.12 and Hallux valgus (acquired), right foot M20.[address] [facility] [address] 08/14/2024 Eran Salazar Atherosclerosis of [place] artery of both lower extremities, with unspecified presence of clinical manifestation I70.203 ; Tinea unguium B35.1 ; Xerosis of skin L85.3 ; Pain in right toe(s) M79.674 and Pain in left toe(s) M79.[address] [address] 11/20/2024 Eran Salazar Tinea unguium B35.1 ; Atherosclerosis of [place] artery of both lower extremities, with unspecified presence of clinical manifestation I70.203 ; Pain in right toe(s) M79.674 ; Pain in left toe(s) M79.675 ; Hallux valgus (acquired), left foot M20.12 ; Hallux valgus (acquired), right foot M20.11 and Skin ulcer of toe of left foot, limited to breakdown of skin L97.521 [facility] [place] [address] [place] [address] 02/11/2024 Eran Salazar Assessments Encounter Date Diagnosis (ICD Code) Assessment Notes Treatment Notes Treatment Clinical Notes Section Notes 05/15/2024 Tinea unguium (ICD-10 - B35.1) 05/15/2024 Atherosclerosis of [place] artery of both lower extremities, with unspecified presence of clinical manifestation (ICD-10 - I70.203) Q7(A), Q8(2B), Q9(1B,2C) 08/14/2024 Tinea unguium (ICD-10 - B35.1) 08/14/2024 Atherosclerosis of [place] artery of both lower extremities, with unspecified presence of clinical manifestation (ICD-10 - I70.203) Q7(A), Q8(2B), Q9(1B,2C) 11/20/2024 Tinea unguium (ICD-10 - B35.1) 11/20/2024 Atherosclerosis of [place] artery of both lower extremities, with unspecified [...] Treatment Pending Test Test Name Order Date 27155-RFOAYGR NAIL, 6 OR MORE 08/26/2014 21146-DSEXVUB NAIL, 6 OR MORE 12/08/2014 91060-FPGDLSB NAIL, 6 OR MORE 03/09/2015 21246-CKPKVDB NAIL, 6 OR MORE 06/20/2015 38103-QGATJGB NAIL, 6 OR MORE 09/07/2015 41035-IIVBJZS NAIL, 6 OR MORE 11/18/2015 41281-BLEJGTI NAIL, 6 OR MORE 01/31/2016 47676-FRJVEPF NAIL, 6 OR MORE 06/15/2016 33688-TXOKPZI NAIL, 6 OR MORE 08/28/2016 49899-LYFVWAO NAIL, 6 OR MORE 11/09/2016 79016-TTWNLUF NAIL, 6 OR MORE 01/18/2017 37324-DAEURTK NAIL, 6 OR MORE 06/14/2017 32990-WKBBIZR NAIL, 6 OR MORE 03/29/2017 63112-MRHCHRL NAIL, 6 OR MORE 09/24/2017 68898-GTUXDSU NAIL, 6 OR MORE 12/24/2017 17230-FJXEDCP NAIL, 6 OR MORE 04/08/2018 32170-YCJIXVM NAIL, 6 OR MORE 07/01/2018 80140-MDJJXNT NAIL, 6 OR MORE 09/16/2018 73144-QPSWAEK NAIL, 6 OR MORE 11/28/2018 33672-JBXUTCE NAIL, 6 OR MORE 02/17/2019 08814-GHPOWQR NAIL, 6 OR MORE 04/21/2019 92114-FJOFRRN NAIL, 6 OR MORE 07/07/2019 14074-CLRGCIV NAIL, 6 OR MORE 09/29/2019 94401-FAOPDYK NAIL, 6 OR MORE 12/25/2019 25969-DNOJSJW NAIL, 6 OR MORE 06/07/2020 21360-QTYNVZQ NAIL, 6 OR MORE 10/07/2020 60803-RGOPTUU NAIL, 6 OR MORE 12/16/2020 43665-NBIETSQ NAIL, 6 OR MORE 03/14/2021 22584-VGNRLYK NAIL, 6 OR MORE 07/18/2021 24666-ZCJYDNH NAIL, 6 OR MORE 09/26/2021 69454-UIYSTPM NAIL, 6 OR MORE 04/17/2022 75257-EYMMKNT NAIL, 6 OR MORE 10/17/2022 46888-SUZSYCP NAIL, 6 OR MORE 01/04/2023 14905-YEKEGGB NAIL, 6 OR MORE 03/29/2023 71597-QVHBQRY NAIL, 6 OR MORE 06/07/2023 01329-VSHZZVM NAIL, 6 OR MORE 10/25/2023 06848-TBOOMNN NAIL, 6 OR MORE 05/15/2024 72437-KMPXXAW NAIL, 6 OR MORE 08/14/2024 65596-RYZVVXO NAIL, OR MORE 11/20/2024 28638-Ztjzgueh Plate 10/25/2023 64503-Mijtmrox Plate 06/07/2023 72745-Gxbupuip Plate 03/29/2023 20289-Vxdvrhzf Plate 01/04/2023 79934-Wmyhcloy Plate 10/17/2022 71552-Ynfzvmnr Plate 04/17/2022 28863-Lbyfzeic Plate 09/26/2021 07160-Unmqehol Plate 07/18/2021 43875-Jlmybhbz Plate 03/14/2021 39517-Wghgloic Plate 12/16/2020 03838-Dkcznnpw Plate 10/07/2020 98759-Rboeovqq Plate 04/08/2018 20531-Uwidxllm Plate 03/29/2017 12080-Oiuezple Plate 01/18/2017 38987-Swyyeiiv Plate 08/28/2016 79838-Gphepyzs Plate 11/09/2016 04654-Bmsyithq Plate 06/15/2016 88368-Hzvkybum Plate 09/07/2015 36781-Pagorenp Plate 06/20/2015 42771- Debride <25 sq cm 11/20/2024 39991-ITQF SKIN LESIONS, OVER 4 09/25/19 18 71357-VDLV SKIN LESIONS, OVER 4 10/18/19 23 60515-UEBH SKIN LESIONS, OVER 4 01/05/20 23 34195-XBTN SKIN LESIONS, OVER 4 03/29/20 23 36717-CYLK SKIN LESIONS, OVER 4 06/07/19 24 67711-TWQF SKIN LESIONS, OVER 4 10/25/19 24 03208-TBNR SKIN LESIONS, OVER 4 05/15/19 25 77083-JVMO SKIN LESIONS, OVER 4 11/21/19 25 91413-ZOOQ SKIN LESIONS, OVER 4 08/15/19 25 16794-OWOH SKIN LESIONS, OVER 4 06/20/19 16 60814-BTFD SKIN LESIONS, OVER 4 03/09/20 15 84326-IQDU SKIN LESIONS, OVER 4 12/09/19 15 85139-KZTR SKIN LESIONS, OVER 4 08/27/19 15 37183-CJHO SKIN LESIONS, OVER 4 09/07/19 16 00320-MZNS SKIN LESIONS, OVER 4 11/18/19 16 49135-YCEJ SKIN LESIONS, OVER 4 06/15/19 17 74271-YWAL SKIN LESIONS, OVER 4 01/31/20 16 59688-HVEC SKIN LESIONS, OVER 4 11/10/19 17 65900-PWVO SKIN LESIONS, OVER 4 08/29/19 17 28822-KHWR SKIN LESIONS, OVER 4 01/19/20 17 03786-KSYL SKIN LESIONS, OVER 4 03/29/20 17 95975-BMTU SKIN LESIONS, OVER 4 12/25/19 18 65915-BMNM SKIN LESIONS, OVER 4 06/14/19 18 10303-KLBM SKIN LESIONS, OVER 4 04/08/20 18 53035-QWPR SKIN LESIONS, OVER 4 07/01/19 19 11190-DEVI SKIN LESIONS, OVER 4 11/29/19 19 96703-QHPB SKIN LESIONS, OVER 4 09/17/19 19 56138-XWSR SKIN LESIONS, OVER 4 09/29/19 20 93155-PHQI SKIN LESIONS, OVER 4 07/07/19 20 35992-DVFC SKIN LESIONS, OVER 4 04/21/20 19 39696-ESYJ SKIN LESIONS, OVER 4 02/18/20 19 09058-LGKM SKIN LESIONS, OVER 4 10/08/19 21 63276-BHMF SKIN LESIONS, OVER 4 12/17/19 21 78685-NWCX SKIN LESIONS, OVER 4 06/07/19 21 95012-SEMG SKIN LESIONS, OVER 4 12/25/19 20 94009-YRNO SKIN LESIONS, OVER 4 03/14/20 21 93098-MUPZ SKIN LESIONS, OVER 4 07/19/19 22 90182-MRNA SKIN LESIONS, OVER 4 09/27/19 22 12186-IWDR SKIN LESIONS, OVER 4 04/17/20 22 43296 - Tenotomy, open flexor 09/15/2019 43922 - Tenotomy, open flexor 06/21/2017 73069 - Tenotomy, open flexor 07/26/2017 27986 - Tenotomy, open flexor 09/06/2017 Next Appt Details Provider Name:Eran Salazar , 02/12/2025 11:15:00 AM, [address] [place] [address], [phone], Insurance Providers Payer Name Payer Address Payer Phone Subscriber Number Group Number Insured Name Patient Relationship to Insured Coverage Start Date Coverage End Date [facility] [employer] Claims [address] [place] [id number] Abby Garsia Self - patient is the [...] 1994 hysterectomy 2011 Hospitalization History Reason Date(Month/Year) [facility] [place] - Dehydration- 1 day 12/27/2016
[2025-02-05 13:59] LABS: Alanine Aminotransferase 11 U/L (0-31); Albumin Level 3.7 g/dL (3.5-5.0); Alkaline Phosphatase 109 U/L (39-117); Anion Gap 11 (12-20); Aspartate Amino Transferase 27 U/L (5-31); Blood Urea Nitrogen 22 mg/dL (9-16); Calcium 9.4 mg/dL (8.4-10.2); Carbon Dioxide 29 mmol/L (22-29); Chloride 108 mmol/L (96-108); Estimated Glomerular Filt Rate 32; Iron 37 mcg/dL (30-160); Percent Iron Saturation 19 % (15-50); Potassium 4.9 mmol/L (3.3-5.1); Sodium 143 mmol/L (135-145); Total Iron Binding Capacity 199 mcg/dL (228-428); Total Protein 8.1 g/dL (6.5-8.0); Unsaturated Iron Binding 162 ug/dL
[2025-02-05 14:16] LABS: Cholesterol 143 mg/dL (<200); HDL Cholesterol 38 mg/dL (>40); Triglycerides 82 mg/dL (<150); Uric Acid 6.5 mg/dL (2.4-5.7)
[2025-02-05 14:20] LABS: Ferritin 762 ng/mL (10-250)
[2025-02-05 14:35] LABS: Folate 13.4 ng/mL (> or = 4.0); Vitamin B12 1203 pg/mL (200-900)
[2025-02-05 14:40] LABS: Reflex LDLD? No
== END 2025-02-05 12:13 | disposition home or self-care (01) ==
LOC: HO.LAB 12:12
PROVIDERS: PCP Family Medicine; Visit Provider Nurse Practitioner Family
DX: I10 Essential (primary) hypertension (principal); M1A.09X0 Idiopathic chronic gout, multiple sites, without tophus (tophi); D64.9 Anemia, unspecified; M25.511 Pain in right shoulder; M25.512 Pain in left shoulder; M25.562 Pain in left knee; G89.29 Other chronic pain
CPT/HCPCS: 36415; 80053; 80061; 82607; 82728; 82746; 83540; 84550; 85025; 85045; 85652; 86140